=== PATIENT | female | born 1945 | race Caucasian/White ===

== ENCOUNTER 2017-12-11 10:31 | Day surgery (SDC) | payer MEDICARE, BC ==
[2017-12-03 16:01] LABS: BASOPHILS % (AUTO) 0.3 % (0-1); EOSINOPHILS # (AUTO) 0.2 X10'3 (0-0.9); EOSINOPHILS % (AUTO) 2.4 % (0-6); HEMATOCRIT 34.9 % (35.0-45.0); HEMOGLOBIN 11.6 g/dl (12.0-16.0); LYMPHOCYTES % (AUTO) 14.7 % (21-51); MEAN CORPUSCULAR HEMOGLOBIN 29.9 PG (27.0-31.0); MEAN CORPUSCULAR HGB CONC 33.4 % (33.0-36.5); MEAN CORPUSCULAR VOLUME 89.6 FL (78-98); MEAN PLATELET VOLUME 9.3 FL (7.4-10.4); MONOCYTES # (AUTO) 0.5 X10'3 (0-0.9); MONOCYTES % (AUTO) 7.4 % (2-12); NEUTROPHILS # (AUTO) 5.3 X10'3 (1.8-7.7); NEUTROPHILS % (AUTO) 75.2 % (42-75); PLATELET COUNT 237 X10'3 (140-440); RED BLOOD COUNT 3.89 X10'6 (4.20-5.60); RED CELL DISTRIBUTION WIDTH 16.9 % (11.5-14.5); WHITE BLOOD COUNT 7.1 X10'3 (4.5-11.0)
[2017-12-03 16:02] LABS: CLARITY,URINE SLIGHTLY CLOUDY (Clear); COLOR,URINE YELLOW (Yellow); GLUCOSE, URINE NEGATIVE (Neg); KETONES,URINE NEGATIVE (Neg); LEUKOCYTE ESTERASE ,URINE NEGATIVE (Neg); NITRITES, URINE NEGATIVE (Neg); OCCULT BLOOD,URINE NEGATIVE (Neg); PROTEIN,URINE 100 mg/dl (Neg); UROBILINOGEN,URINE 0.2 E.U/dL (0.2-1.0)
[2017-12-03 16:03] LABS: UA COLLECTION TYPE CLN CATCH MIDSTREAM
[2017-12-03 16:08] LABS: MUCUS STRANDS FEW /LPF (Neg); SQUAMOUS EPITHELIAL CELL,UR MANY /LPF (FEW); TRANSITIONAL EPI CELLS,URINE FEW /HPF
[2017-12-03 16:09] LABS: BACTERIA,URINE NONE SEEN /HPF (Neg); RBC,URINE 0-2 /HPF (0-2); WBC,URINE 0-4 /HPF (0-4)
[2017-12-03 16:09] LABS: ALBUMIN 3.5 G/DL (3.4-5.0); ANION GAP 6 (8-16); BLOOD UREA NITROGEN 24 MG/DL (7-18); BUN/CREATININE RATIO 22.2 (6.6-38.0); CALCIUM 9.3 MG/DL (8.5-10.1); CHLORIDE 102 MMOL/L (99-107); CREATININE 1.08 MG/DL (0.40-0.90); GLUCOSE 123 MG/DL (70-104); POTASSIUM 4.2 MMOL/L (3.5-5.1); SODIUM 139 MMOL/L (135-145); eGFR 50 ML/MIN
[2017-12-03 16:10] LABS: HEMOGLOBIN A1C 6.9 % (4.5-6.2); PARTIAL THROMBOPLASTIN TIME 27 SECONDS (22-32); PROTHROMBIN TIME 9.9 SECONDS (9.0-12.0)
[~2017-12-11] VITALS: Ht 162.6 cm; Wt 127.6 kg
[2017-12-11] VITALS (7 sets, daily range): BP systolic 121–179; BP diastolic 64–96
[~2017-12-11 10:31] MED LIST: ACET325C PO; AMIT-189 PO; CALC0.5C2 PO; CHLO25TA2 PO; FOLI-91 PO; INSU100C10 SQ; LANTUS SUBCUT; OMEP40CA37 PO; POTA10CA44 PO; SIMV20TA5 PO
[2017-12-11] MEDS ORDERED: LORazepam 0.5 MG tablet PO PRN (11:00)
[2017-12-11] MEDS ORDERED: diphenhydrAMINE 25mg capsule PO PRN (11:00)
[2017-12-11] MEDS ORDERED: normal saline 1000ml 1,000 ML IV SCH (11:00)
[2017-12-11] MEDS ORDERED: clindamycin 600mg/D5W 50ml 50 ML IV ONE ×2 (11:05→13:58)
[2017-12-11] MEDS ORDERED: CLON-529 PO (11:32)
[2017-12-11] MEDS ORDERED: CEFAZOLIN IV SCH (12:00)
[2017-12-11] MEDS ORDERED: [UNRECOGNIZED DRUG - OTHER] IV SCH (12:00)
[2017-12-11] MEDS ORDERED: midazolam 2 mg/2 ml injection ONE (13:58)
[2017-12-11] MEDS ORDERED: clindamycin phosphate 150mg/ml inj. ONE (13:58)
[2017-12-11] MEDS ORDERED: fentaNYL/PF 50MCG/1 ML 2ML syringe ONE (13:58)
[2017-12-11] MEDS ORDERED: LIDOcaine 1% 30ml vial 30 ML ONE (13:59)
== END 2017-12-11 17:00 | disposition home or self-care (01) ==
LOC: SSTAY O 10:31
PROVIDERS: ATTEND Internal Medicine Interventional Cardiology
DX: T82.120A Displacement of cardiac electrode, initial encounter (principal); Y83.8 Other surgical procedures as the cause of abnormal reaction of the patient, or of later complication, without mention of misadventure at the time of the procedure; Y92.89 Other specified places as the place of occurrence of the external cause; I10 Essential (primary) hypertension; E11.9 Type 2 diabetes mellitus without complications; I44.30 Unspecified atrioventricular block
CPT/HCPCS: 33215; 36415; 80048; 81001; 82948; 83036; 85025; 85610; 85730; 93005; A4565; J2250; J3010; J3490; J7030; Q0163; 99152; 99153; A4620

== ENCOUNTER 2018-07-23 07:50 | Outpatient (CLI) | payer MEDICARE, BC ==
[~2018-07-23 07:50] MED LIST changes: -CHLO25TA2 PO; +CLON-529 PO; -POTA10CA44 PO
[2018-07-23 08:41] LABS: BASOPHILS % (AUTO) 0.5 % (0-1); EOSINOPHILS # (AUTO) 0.3 X10'3 (0-0.9); EOSINOPHILS % (AUTO) 3.4 % (0-6); HEMATOCRIT 34.1 % (35.0-45.0); HEMOGLOBIN 11.5 g/dl (12.0-16.0); LYMPHOCYTES % (AUTO) 12.3 % (21-51); MEAN CORPUSCULAR HEMOGLOBIN 30.1 PG (27.0-31.0); MEAN CORPUSCULAR HGB CONC 33.6 % (33.0-36.5); MEAN CORPUSCULAR VOLUME 89.5 FL (78-98); MEAN PLATELET VOLUME 10.2 FL (7.4-10.4); MONOCYTES # (AUTO) 0.6 X10'3 (0-0.9); MONOCYTES % (AUTO) 7.2 % (2-12); NEUTROPHILS # (AUTO) 6.2 X10'3 (1.8-7.7); NEUTROPHILS % (AUTO) 76.6 % (42-75); PLATELET COUNT 197 X10'3 (140-440); RED BLOOD COUNT 3.82 X10'6 (4.20-5.60); RED CELL DISTRIBUTION WIDTH 18.8 % (11.5-14.5); WHITE BLOOD COUNT 8.1 X10'3 (4.5-11.0)
[2018-07-23 08:49] LABS: CLARITY,URINE Cloudy (Clear); COLOR,URINE Yellow (Yellow); GLUCOSE, URINE Negative (Neg); KETONES,URINE Negative (Neg); LEUKOCYTE ESTERASE ,URINE Large (Neg); NITRITES, URINE Negative (Neg); OCCULT BLOOD,URINE Negative (Neg); PH,URINE 6.5 (4.8-8.0); PROTEIN,URINE 100 mg/dl (Neg)
[2018-07-23 08:58] LABS: ALANINE AMINOTRANSFERASE 22 U/L (12-78); ALBUMIN 3.3 G/DL (3.4-5.0); ALBUMIN/GLOBULIN RATIO 0.9 (1.1-1.5); ALKALINE PHOSPHATASE 161 IU/L (46-116); ANION GAP 7 (8-16); ASPARTATE AMINO TRANSFERASE 22 U/L (10-37); BILIRUBIN,TOTAL 0.6 MG/DL (0.1-1.0); BLOOD UREA NITROGEN 22 MG/DL (7-18); BUN/CREATININE RATIO 24.4 (6.6-38.0); CHLORIDE 103 MMOL/L (99-107); GLUCOSE 145 MG/DL (70-104); POTASSIUM 4.2 MMOL/L (3.5-5.1); SODIUM 140 MMOL/L (135-145); TOTAL CARBON DIOXIDE 30.3 MMOL/L (24-32); TOTAL PROTEIN 6.8 G/DL (6.4-8.2); eGFR 62 ML/MIN
[2018-07-23 09:03] LABS: UA COLLECTION TYPE CLN CATCH MIDSTREAM
[2018-07-23 09:06] LABS: RBC,URINE NONE SEEN /HPF (0-2); WBC,URINE 0-4 /HPF (0-4)
[2018-07-23 09:07] LABS: AMORPHOUS URATES 1+; BACTERIA,URINE 1+ /HPF (Neg); SQUAMOUS EPITHELIAL CELL,UR MANY /LPF (FEW)
[2018-07-23 09:16] LABS: HEMOGLOBIN A1C 8.2 % (4.5-6.2)
[2018-07-23 09:18] LABS: ANISOCYTOSIS 2+; ELLIPTOCYTES 1+; PLATELET ESTIMATE NORMAL; POIKILOCYTOSIS FEW
== END 2018-07-23 23:59 | disposition home or self-care (01) ==
LOC: LAB 07:50
PROVIDERS: ATTEND Specialist
DX: Z01.818 Encounter for other preprocedural examination (principal); Z51.81 Encounter for therapeutic drug level monitoring; N39.0 Urinary tract infection, site not specified; E11.8 Type 2 diabetes mellitus with unspecified complications; I10 Essential (primary) hypertension; Z79.4 Long term (current) use of insulin; Z79.899 Other long term (current) drug therapy; Z87.891 Personal history of nicotine dependence
CPT/HCPCS: 36415; 80053; 81001; 83036; 85025; 85610; 87070

== ENCOUNTER 2018-08-05 05:32 | Inpatient (IN) | payer MEDICARE, BC ==
[2018-07-30 12:53] LABS: BASOPHILS % (AUTO) 0.3 % (0-1); EOSINOPHILS # (AUTO) 0.2 X10'3 (0-0.9); EOSINOPHILS % (AUTO) 2.4 % (0-6); HEMATOCRIT 32.9 % (35.0-45.0); HEMOGLOBIN 10.9 g/dl (12.0-16.0); LYMPHOCYTES # (AUTO) 0.9 X10'3 (1.1-4.8); LYMPHOCYTES % (AUTO) 11.6 % (21-51); MEAN CORPUSCULAR HEMOGLOBIN 29.9 PG (27.0-31.0); MEAN CORPUSCULAR HGB CONC 33.2 % (33.0-36.5); MEAN CORPUSCULAR VOLUME 90.1 FL (78-98); MONOCYTES # (AUTO) 0.5 X10'3 (0-0.9); MONOCYTES % (AUTO) 6.3 % (2-12); NEUTROPHILS # (AUTO) 5.9 X10'3 (1.8-7.7); NEUTROPHILS % (AUTO) 79.4 % (42-75); PLATELET COUNT 192 X10'3 (140-440); RED BLOOD COUNT 3.65 X10'6 (4.20-5.60); RED CELL DISTRIBUTION WIDTH 18.5 % (11.5-14.5); WHITE BLOOD COUNT 7.5 X10'3 (4.5-11.0)
[~2018-08-05] VITALS: Ht 163.8 cm; Wt 128.0 kg
[2018-08-05] VITALS (20 sets, daily range): BP systolic 117–160; BP diastolic 38–104
[~2018-08-05 05:32] MED LIST changes: +DOCU-28 PO; +FERR325T39 PO; +acetaminophen 325mg tablet PO ONE; +ceFAZolin inj. 3,000 MG in normal saline 100ml IV soln 100 ML IV ONE; +famotidine 20mg tablet PO ONE; +oxyCODONE SR 10mg (sust. release) tab PO ONE; +ringers solution, lacted 1,000 ML IV SCH; +tranexamic acid inj. 1,500 MG in normal saline 100ml IV soln 85 ML IV ONE; +vancomycin inj 1,500 MG in normal saline 300ml IV soln IV ONE
[2018-08-05] MEDS ORDERED: LIDOcaine 1% (10mg/ml) 2ml vial ONE (05:50)
[2018-08-05 06:09] LABS: BASOPHILS % (AUTO) 0.4 % (0-1); EOSINOPHILS # (AUTO) 0.2 X10'3 (0-0.9); EOSINOPHILS % (AUTO) 2.8 % (0-6); HEMATOCRIT 34.6 % (35.0-45.0); HEMOGLOBIN 11.7 g/dl (12.0-16.0); LYMPHOCYTES # (AUTO) 1.2 X10'3 (1.1-4.8); LYMPHOCYTES % (AUTO) 13.7 % (21-51); MEAN CORPUSCULAR HEMOGLOBIN 30.3 PG (27.0-31.0); MEAN CORPUSCULAR HGB CONC 33.8 % (33.0-36.5); MEAN CORPUSCULAR VOLUME 89.7 FL (78-98); MEAN PLATELET VOLUME 10.2 FL (7.4-10.4); MONOCYTES # (AUTO) 0.7 X10'3 (0-0.9); MONOCYTES % (AUTO) 7.9 % (2-12); NEUTROPHILS # (AUTO) 6.5 X10'3 (1.8-7.7); NEUTROPHILS % (AUTO) 75.2 % (42-75); PLATELET COUNT 201 X10'3 (140-440); RED BLOOD COUNT 3.86 X10'6 (4.20-5.60); RED CELL DISTRIBUTION WIDTH 18.1 % (11.5-14.5); WHITE BLOOD COUNT 8.7 X10'3 (4.5-11.0)
[2018-08-05] MEDS ORDERED: ROPIVAcaine 0.5% (5mg/ml) 30ml vial ONE ×2 (06:29→07:43)
[2018-08-05] MEDS ORDERED: INSU100C10 PO (06:43)
[2018-08-05 07:00] LABS: ANISOCYTOSIS 2+; MICROCYTOSIS 1+; PLATELET ESTIMATE NORMAL
[2018-08-05] MEDS ORDERED: bacitracin inj 150,000 UNIT in sodium chloride irrig. sol 3,000 ML IR ONE (07:00)
[2018-08-05] MEDS ORDERED: sevoflurane 250ml liquid IH ONE (07:12)
[2018-08-05] MEDS ORDERED: cloNIDine hcl/PF 100mcg/ml inj ONE (07:12)
[2018-08-05] MEDS ORDERED: fentaNYL /PF 50mcg/ml 5ml ampule ONE (07:14)
[2018-08-05] MEDS ORDERED: ceFAZolin 1000mg inj ONE (07:43)
[2018-08-05] MEDS ORDERED: LIDOcaine 2% (20mg/ml) 5ml vial ONE (07:44)
[2018-08-05] MEDS ORDERED: succinylcholine 20mg/ml inj IV ONE (07:44)
[2018-08-05] MEDS ORDERED: rocuronium 10mg/ml inj IV ONE (07:44)
[2018-08-05] MEDS ORDERED: propofol inj 20 ML IV ONE (07:44)
[2018-08-05] MEDS ORDERED: dexamethasone sod phosphate 4mg/ml inj. ONE (07:50)
[2018-08-05] MEDS ORDERED: morphine 10mg/ml inj. ONE (08:16)
[2018-08-05] MEDS ORDERED: labetalol 5mg/ml 20ml inj. IV ONE (08:26)
[2018-08-05] MEDS ORDERED: normal saline 1000ml 1,000 ML IV ONE (09:16)
[2018-08-05] MEDS ORDERED: HYDROmorphone 1 mg/ml syringe IV PRN ×3 (09:20→09:50)
[2018-08-05] MEDS ORDERED: morphine 4 MG/ML inj SYRINge IV PRN ×2 (09:20)
[2018-08-05] MEDS ORDERED: ondansetron/PF 4mg/2ml inj IV PRN ×2 (09:20→09:50)
[2018-08-05] MEDS ORDERED: furosemide 40mg/4ml inj ONE (09:43)
[2018-08-05] MEDS ORDERED: ondansetron/PF 4mg/2ml inj ONE (09:43)
[2018-08-05] MEDS ORDERED: glycopyrrolate 0.2mg/ml inj ONE (09:43)
[2018-08-05] MEDS ORDERED: neostigmine methylsulfate 1 MG/ML 10ml vial ONE (09:43)
[2018-08-05] MEDS ORDERED: glucagon, human recombinant 1mg kit SUBCUT PRN (09:50)
[2018-08-05] MEDS ORDERED: oxyCODONE/APAP 10/325mg tablet PO PRN (09:50)
[2018-08-05] MEDS ORDERED: dextrose ORAL solution 15 GM/59 ML bottle PO PRN ×2 (09:50)
[2018-08-05] MEDS ORDERED: diphenhydrAMINE 25mg capsule PO PRN ×2 (09:50)
[2018-08-05] MEDS ORDERED: magnesium hydroxide 30ml (MOM) UD suspension PO PRN (09:50)
[2018-08-05] MEDS ORDERED: acetaminophen 325mg tablet PO PRN (09:50)
[2018-08-05] MEDS ORDERED: dextrose 50%-water 50ml dispensing syringe IV PRN ×2 (09:50)
[2018-08-05] MEDS ORDERED: bisacodyl 10mg suppository rectal RC PRN (09:50)
[2018-08-05] MEDS ORDERED: MESSAGE TO PHARMACY PO ONE (09:50)
[2018-08-05] MEDS: oxyCODONE/APAP 10/325mg tablet PO PRN ×3 (11:52→19:47)
[2018-08-05] MEDS: potassium cl 20mEq in 1/2 NS 1,000 ML IV SCH ×2 (13:21→17:50)
[2018-08-05] MEDS: ceFAZolin 1GM/D5W- ADD-VANTAGE 50 ML IV SCH (16:00)
[2018-08-05] MEDS: insulin Lispro (HumaLOG) vial - multi-dose SQ SCH (19:45)
[2018-08-05] MEDS: docusate sod 100mg capsule PO SCH (19:46)
[2018-08-05] MEDS: ascorbic acid 500mg tablet PO SCH (19:46)
[2018-08-05] MEDS ORDERED: vancomycin/NS 1 GM ADD-VANTAGE 250 ML IV SCH (20:00)
[2018-08-05] MEDS ORDERED: INSULIN LISPRO 16 UNIT SQ SCH (21:00)
[2018-08-05] MEDS ORDERED: insulin glargine (Lantus) pen - multi-dose SQ SCH (21:00)
[2018-08-05] MEDS: insulin glargine (Lantus) pen - multi-dose SQ SCH (22:10)
[2018-08-05] MEDS: amitryptiline 50mg tablet PO SCH (22:11)
[2018-08-05] MEDS: atorvastatin 20mg tablet PO SCH (22:11)
[2018-08-05] MEDS: sennosides 8.6mg tablet PO SCH (22:11)
[2018-08-06] MEDS: ceFAZolin 1GM/D5W- ADD-VANTAGE 50 ML IV SCH (00:08)
[2018-08-06] MEDS: oxyCODONE/APAP 10/325mg tablet PO PRN ×5 (00:10→23:14)
[2018-08-06] MEDS: potassium cl 20mEq in 1/2 NS 1,000 ML IV SCH ×3 (02:12→16:08)
[2018-08-06 05:34] LABS: BASOPHILS % (AUTO) 0 % (0-1); EOSINOPHILS # (AUTO) 0.2 X10'3 (0-0.9); HEMATOCRIT 27.3 % (35.0-45.0); HEMOGLOBIN 9.2 g/dl (12.0-16.0); LYMPHOCYTES % (AUTO) 10.1 % (21-51); MEAN CORPUSCULAR HEMOGLOBIN 30.1 PG (27.0-31.0); MEAN CORPUSCULAR HGB CONC 33.7 % (33.0-36.5); MEAN CORPUSCULAR VOLUME 89.1 FL (78-98); MEAN PLATELET VOLUME 11.1 FL (7.4-10.4); MONOCYTES # (AUTO) 0.7 X10'3 (0-0.9); MONOCYTES % (AUTO) 7.2 % (2-12); NEUTROPHILS # (AUTO) 7.7 X10'3 (1.8-7.7); NEUTROPHILS % (AUTO) 80.7 % (42-75); PLATELET COUNT 168 X10'3 (140-440); RED BLOOD COUNT 3.07 X10'6 (4.20-5.60); RED CELL DISTRIBUTION WIDTH 18.3 % (11.5-14.5); WHITE BLOOD COUNT 9.5 X10'3 (4.5-11.0)
[2018-08-06 05:49] LABS: INR 1.3 INR; PROTHROMBIN TIME 13.6 SECONDS (9.0-12.0)
[2018-08-06 06:00] VITALS: BP 126/46
[2018-08-06 06:17] LABS: ALANINE AMINOTRANSFERASE 24 U/L (12-78); ALBUMIN 2.8 G/DL (3.4-5.0); ALBUMIN/GLOBULIN RATIO 0.9 (1.1-1.5); ALKALINE PHOSPHATASE 120 IU/L (46-116); ANION GAP 8 (8-16); ASPARTATE AMINO TRANSFERASE 22 U/L (10-37); BILIRUBIN,TOTAL 0.5 MG/DL (0.1-1.0); BLOOD UREA NITROGEN 20 MG/DL (7-18); BUN/CREATININE RATIO 17.9 (6.6-38.0); CALCIUM 8.1 MG/DL (8.5-10.1); CHLORIDE 102 MMOL/L (99-107); CREATININE 1.12 MG/DL (0.40-0.90); GLUCOSE 173 MG/DL (70-104); POTASSIUM 4.2 MMOL/L (3.5-5.1); SODIUM 137 MMOL/L (135-145); TOTAL CARBON DIOXIDE 26.6 MMOL/L (24-32); TOTAL PROTEIN 5.8 G/DL (6.4-8.2); eGFR 48 ML/MIN
[2018-08-06 06:29] LABS: PLATELET ESTIMATE NORMAL
[2018-08-06 06:30] LABS: ANISOCYTOSIS 2+; ELLIPTOCYTES 1+
[2018-08-06] MEDS: cloNIDine 0.1 mg tablet PO SCH (07:09)
[2018-08-06] MEDS: pantoprazole 40mg Tablet.DR PO SCH (07:09)
[2018-08-06] MEDS: ascorbic acid 500mg tablet PO SCH ×2 (07:10→20:52)
[2018-08-06] MEDS: multivitamins, therapeutics tablet PO SCH (07:10)
[2018-08-06] MEDS: docusate sod 100mg capsule PO SCH ×2 (08:00→20:52)
[2018-08-06] MEDS: insulin Lispro (HumaLOG) vial - multi-dose SQ SCH ×3 (08:17→18:43)
[2018-08-06 10:00] VITALS: BP 107/65
[2018-08-06] MEDS ORDERED: warfarin 5mg tablet PO ONE (10:00)
[2018-08-06 14:00] VITALS: BP 160/50
[2018-08-06 19:39] VITALS: BP 131/51
[2018-08-06] MEDS: amitryptiline 50mg tablet PO SCH (20:52)
[2018-08-06] MEDS: atorvastatin 20mg tablet PO SCH (20:52)
[2018-08-06] MEDS: sennosides 8.6mg tablet PO SCH (20:52)
[2018-08-06] MEDS: insulin glargine (Lantus) pen - multi-dose SQ SCH (20:54)
[2018-08-06 22:00] VITALS: BP 138/66
[2018-08-07] MEDS: potassium cl 20mEq in 1/2 NS 1,000 ML IV SCH (04:28)
[2018-08-07] MEDS: oxyCODONE/APAP 10/325mg tablet PO PRN ×4 (05:02→22:12)
[2018-08-07 06:00] LABS: BASOPHILS % (AUTO) 0.1 % (0-1); EOSINOPHILS # (AUTO) 0.3 X10'3 (0-0.9); EOSINOPHILS % (AUTO) 3.1 % (0-6); HEMATOCRIT 26.8 % (35.0-45.0); HEMOGLOBIN 8.9 g/dl (12.0-16.0); LYMPHOCYTES # (AUTO) 0.8 X10'3 (1.1-4.8); LYMPHOCYTES % (AUTO) 9.3 % (21-51); MEAN CORPUSCULAR HEMOGLOBIN 29.8 PG (27.0-31.0); MEAN CORPUSCULAR HGB CONC 33.4 % (33.0-36.5); MEAN CORPUSCULAR VOLUME 89.1 FL (78-98); MONOCYTES # (AUTO) 0.7 X10'3 (0-0.9); MONOCYTES % (AUTO) 8.5 % (2-12); NEUTROPHILS # (AUTO) 6.5 X10'3 (1.8-7.7); PLATELET COUNT 160 X10'3 (140-440); RED CELL DISTRIBUTION WIDTH 17.9 % (11.5-14.5); WHITE BLOOD COUNT 8.2 X10'3 (4.5-11.0)
[2018-08-07 06:05] LABS: INR 1.6 INR; PROTHROMBIN TIME 16.7 SECONDS (9.0-12.0)
[2018-08-07 06:29] LABS: ALANINE AMINOTRANSFERASE 23 U/L (12-78); ALBUMIN 2.6 G/DL (3.4-5.0); ALBUMIN/GLOBULIN RATIO 0.8 (1.1-1.5); ALKALINE PHOSPHATASE 110 IU/L (46-116); ANION GAP 7 (8-16); ASPARTATE AMINO TRANSFERASE 25 U/L (10-37); BILIRUBIN,TOTAL 0.6 MG/DL (0.1-1.0); BLOOD UREA NITROGEN 20 MG/DL (7-18); BUN/CREATININE RATIO 18.3 (6.6-38.0); CALCIUM 8.1 MG/DL (8.5-10.1); CHLORIDE 101 MMOL/L (99-107); CREATININE 1.09 MG/DL (0.40-0.90); GLUCOSE 157 MG/DL (70-104); POTASSIUM 4.1 MMOL/L (3.5-5.1); SODIUM 134 MMOL/L (135-145); TOTAL CARBON DIOXIDE 26.5 MMOL/L (24-32); TOTAL PROTEIN 5.9 G/DL (6.4-8.2); eGFR 49 ML/MIN
[2018-08-07 08:34] VITALS: BP 158/47
[2018-08-07] MEDS: pantoprazole 40mg Tablet.DR PO SCH (08:35)
[2018-08-07] MEDS: cloNIDine 0.1 mg tablet PO SCH (08:35)
[2018-08-07] MEDS: ascorbic acid 500mg tablet PO SCH ×2 (08:36→22:12)
[2018-08-07] MEDS: docusate sod 100mg capsule PO SCH ×2 (08:36→22:12)
[2018-08-07] MEDS: multivitamins, therapeutics tablet PO SCH (08:36)
[2018-08-07] MEDS: insulin Lispro (HumaLOG) vial - multi-dose SQ SCH ×3 (08:48→18:25)
[2018-08-07] MEDS ORDERED: acetaminophen 325mg tablet PO PRN (09:50)
[2018-08-07 10:00] VITALS: BP 145/43
[2018-08-07] MEDS ORDERED: scopolamine 1.5mg patch.TD72 TD ONE (10:55)
[2018-08-07 18:00] VITALS: BP 140/37
[2018-08-07] MEDS: insulin glargine (Lantus) pen - multi-dose SQ SCH (20:45)
[2018-08-07 22:00] VITALS: BP 139/50
[2018-08-07] MEDS: sennosides 8.6mg tablet PO SCH (22:12)
[2018-08-07] MEDS: atorvastatin 20mg tablet PO SCH (22:12)
[2018-08-07] MEDS: amitryptiline 50mg tablet PO SCH (22:12)
[2018-08-08] MEDS: oxyCODONE/APAP 10/325mg tablet PO PRN ×2 (05:31→10:09)
[2018-08-08 06:00] VITALS: BP 162/54
[2018-08-08 06:07] LABS: BASOPHILS % (AUTO) 0.1 % (0-1); EOSINOPHILS # (AUTO) 0.2 X10'3 (0-0.9); HEMATOCRIT 26.1 % (35.0-45.0); HEMOGLOBIN 8.9 g/dl (12.0-16.0); LYMPHOCYTES % (AUTO) 12.6 % (21-51); MEAN CORPUSCULAR HEMOGLOBIN 30.5 PG (27.0-31.0); MEAN CORPUSCULAR HGB CONC 34.1 % (33.0-36.5); MEAN CORPUSCULAR VOLUME 89.5 FL (78-98); MEAN PLATELET VOLUME 10.4 FL (7.4-10.4); MONOCYTES # (AUTO) 0.7 X10'3 (0-0.9); MONOCYTES % (AUTO) 8.5 % (2-12); NEUTROPHILS # (AUTO) 6.1 X10'3 (1.8-7.7); NEUTROPHILS % (AUTO) 75.8 % (42-75); PLATELET COUNT 167 X10'3 (140-440); RED BLOOD COUNT 2.92 X10'6 (4.20-5.60); RED CELL DISTRIBUTION WIDTH 18.5 % (11.5-14.5)
[2018-08-08 06:11] LABS: INR 1.3 INR; PROTHROMBIN TIME 13.8 SECONDS (9.0-12.0)
[2018-08-08 06:59] LABS: ALANINE AMINOTRANSFERASE 22 U/L (12-78); ALBUMIN 2.5 G/DL (3.4-5.0); ALBUMIN/GLOBULIN RATIO 0.7 (1.1-1.5); ALKALINE PHOSPHATASE 111 IU/L (46-116); ANION GAP 8 (8-16); ASPARTATE AMINO TRANSFERASE 22 U/L (10-37); BILIRUBIN,TOTAL 0.6 MG/DL (0.1-1.0); BLOOD UREA NITROGEN 23 MG/DL (7-18); BUN/CREATININE RATIO 19.8 (6.6-38.0); CALCIUM 8.5 MG/DL (8.5-10.1); CHLORIDE 101 MMOL/L (99-107); CREATININE 1.16 MG/DL (0.40-0.90); GLUCOSE 118 MG/DL (70-104); POTASSIUM 4.1 MMOL/L (3.5-5.1); SODIUM 136 MMOL/L (135-145); TOTAL PROTEIN 6.1 G/DL (6.4-8.2); eGFR 46 ML/MIN
[2018-08-08] MEDS: insulin Lispro (HumaLOG) vial - multi-dose SQ SCH (08:51)
[2018-08-08] MEDS: pantoprazole 40mg Tablet.DR PO SCH (08:53)
[2018-08-08] MEDS: cloNIDine 0.1 mg tablet PO SCH (08:53)
[2018-08-08] MEDS: docusate sod 100mg capsule PO SCH (08:53)
[2018-08-08] MEDS: ascorbic acid 500mg tablet PO SCH (08:53)
[2018-08-08] MEDS: multivitamins, therapeutics tablet PO SCH (08:53)
[2018-08-08 10:00] VITALS: BP 132/48
[2018-08-08] MEDS ORDERED: warfarin 7.5mg tablet PO ONE (10:00)
== END 2018-08-08 12:30 | DRG 470 ==
LOC: PAS IN 05:32 → EDSTATUS 07:30 → ORTHO 4S 11:10
PROVIDERS: ADMIT Specialist; ATTEND Specialist
PROC: 3E0T3BZ Introduction of Anesthetic Agent into Peripheral Nerves and Plexi, Percutaneous Approach (ICD-10-PCS; 2018-08-05)
PROC: 0SRC0J9 Replacement of Right Knee Joint with Synthetic Substitute, Cemented, Open Approach (ICD-10-PCS; principal; 2018-08-05 07:12)
DX: M17.11 Unilateral primary osteoarthritis, right knee (principal); Z68.42 Body mass index [BMI] 45.0-49.9, adult; D62 Acute posthemorrhagic anemia; E66.01 Morbid (severe) obesity due to excess calories; E11.9 Type 2 diabetes mellitus without complications; M21.161 Varus deformity, not elsewhere classified, right knee; E78.5 Hyperlipidemia, unspecified; M10.9 Gout, unspecified; I10 Essential (primary) hypertension; I25.10 Atherosclerotic heart disease of native coronary artery without angina pectoris; Z87.891 Personal history of nicotine dependence; Z79.4 Long term (current) use of insulin; Z95.0 Presence of cardiac pacemaker; Z88.0 Allergy status to penicillin; Z88.2 Allergy status to sulfonamides; Z88.6 Allergy status to analgesic agent; Z88.8 Allergy status to other drugs, medicaments and biological substances; Z79.899 Other long term (current) drug therapy; Z79.01 Long term (current) use of anticoagulants; Z90.710 Acquired absence of both cervix and uterus
CPT/HCPCS: 36415; 73560; 80053; 82948; 83036; 85025; 85610; 97110; 97116; 97162; 97530; 97535; A6449; A6455; A7000; C1713; C1758; C1776; J0330; J0690; J0735; J1100; J1170; J1815; J1940; J2001; J2270; J2405; J2704; J2710; J2795; J3010; J3370; J3490; J7030; J7120

== ENCOUNTER 2021-03-25 03:20 | Emergency (ER) | payer MEDICARE, BC, MEDICAID ==
[~2021-03-25] VITALS: Ht 162.6 cm; Wt 130.0 kg
[~2021-03-25 03:20] MED LIST changes: -ACET325C PO; +ACET325C3 PO; -CALC0.5C2 PO; +INSU100C10 PO; +OMEP40CA13 PO; -OMEP40CA37 PO; +SIMV-42 PO; -SIMV20TA5 PO; -acetaminophen 325mg tablet PO ONE; -ceFAZolin inj. 3,000 MG in normal saline 100ml IV soln 100 ML IV ONE; -famotidine 20mg tablet PO ONE; -oxyCODONE SR 10mg (sust. release) tab PO ONE; -ringers solution, lacted 1,000 ML IV SCH; -tranexamic acid inj. 1,500 MG in normal saline 100ml IV soln 85 ML IV ONE; -vancomycin inj 1,500 MG in normal saline 300ml IV soln IV ONE
[2021-03-25 03:43] LABS: BASOPHILS % (AUTO) 0.4 % (0-1); EOSINOPHILS # (AUTO) 0.2 X10'3 (0-0.9); EOSINOPHILS % (AUTO) 1.4 % (0-6); HEMOGLOBIN 7.5 g/dl (12.0-16.0); LYMPHOCYTES # (AUTO) 1.2 X10'3 (1.1-4.8); LYMPHOCYTES % (AUTO) 10.4 % (21-51); MEAN CORPUSCULAR HEMOGLOBIN 27.9 PG (27.0-31.0); MEAN CORPUSCULAR HGB CONC 31.4 g/dL (33.0-36.5); MEAN PLATELET VOLUME 9.7 FL (7.4-10.4); MONOCYTES # (AUTO) 0.7 X10'3 (0-0.9); MONOCYTES % (AUTO) 6.3 % (2-12); NEUTROPHILS # (AUTO) 9.2 X10'3 (1.8-7.7); NEUTROPHILS % (AUTO) 81.5 % (42-75); PLATELET COUNT 226 X10'3 (140-440); RED CELL DISTRIBUTION WIDTH 19.1 % (11.5-14.5); WHITE BLOOD COUNT 11.3 X10'3 (4.5-11.0)
[2021-03-25 03:56] LABS: ALANINE AMINOTRANSFERASE 26 U/L (12-78); ALBUMIN 3.4 G/DL (3.4-5.0); ALKALINE PHOSPHATASE 153 IU/L (46-116); ANION GAP 12 (8-16); ASPARTATE AMINO TRANSFERASE 32 U/L (10-37); BILIRUBIN,TOTAL 0.6 MG/DL (0.1-1.0); BLOOD UREA NITROGEN 41 MG/DL (7-18); BUN/CREATININE RATIO 38.7 (6.6-38.0); CALCIUM 8.9 MG/DL (8.5-10.1); CHLORIDE 105 MMOL/L (99-107); CREATININE 1.06 MG/DL (0.40-0.90); GLUCOSE 237 MG/DL (70-104); POTASSIUM 4.4 MMOL/L (3.5-5.1); SODIUM 142 MMOL/L (135-145); TOTAL CARBON DIOXIDE 25.1 MMOL/L (24-32); TOTAL PROTEIN 6.7 G/DL (6.4-8.2); eGFR 51 ML/MIN
[2021-03-25] MEDS ORDERED: ALBU8HFA PO (04:10)
[2021-03-25 04:41] VITALS: BP 164/64
[2021-03-25 05:11] LABS: ANISOCYTOSIS 2+; PLATELET ESTIMATE NORMAL; TOTAL CELLS COUNTED 100
[2021-03-25 05:12] LABS: ACANTHOCYTES 1+; HYPOCHROMASIA 1+; POLYCHROMASIA 1+; SCHISTOCYTES FEW; TEAR DROP CELLS FEW
[2021-03-29] MEDS ORDERED: PANT-47 PO (10:55)
== END 2021-03-25 05:10 | disposition home or self-care (01) ==
LOC: ER 03:20
DX: J44.9 Chronic obstructive pulmonary disease, unspecified (principal); R06.02 Shortness of breath; Z76.0 Encounter for issue of repeat prescription; Z88.0 Allergy status to penicillin; Z88.2 Allergy status to sulfonamides; Z88.8 Allergy status to other drugs, medicaments and biological substances; Z88.5 Allergy status to narcotic agent; Z79.4 Long term (current) use of insulin; Z79.899 Other long term (current) drug therapy
CPT/HCPCS: 36415; 71045; 80053; 85007; 85025; 93005; 99285

== ENCOUNTER 2021-03-26 23:22 | Inpatient (IN) | payer MEDICARE, BC, MEDICAID ==
[~2021-03-26] VITALS: Ht 162.6 cm; Wt 129.1 kg
[~2021-03-26 23:22] MED LIST changes: +ALBU8HFA PO
[2021-03-27] VITALS (18 sets, daily range): BP systolic 145–217; BP diastolic 44–108
[2021-03-27] MEDS ORDERED: iohexol 300mg/ml 100ml inj. ONE (00:29)
[2021-03-27 01:16] LABS: ALANINE AMINOTRANSFERASE 34 U/L (12-78); ALBUMIN 3.4 G/DL (3.4-5.0); ALBUMIN/GLOBULIN RATIO 1.1 (1.1-1.5); ALKALINE PHOSPHATASE 133 IU/L (46-116); ANION GAP 9 (8-16); ASPARTATE AMINO TRANSFERASE 28 U/L (10-37); BASOPHILS # (AUTO) 0.1 X10'3 (0-0.2); BASOPHILS % (AUTO) 0.5 % (0-1); BILIRUBIN,TOTAL 0.8 MG/DL (0.1-1.0); BLOOD UREA NITROGEN 43 MG/DL (7-18); BUN/CREATININE RATIO 42.6 (6.6-38.0); CHLORIDE 105 MMOL/L (99-107); CREATININE 1.01 MG/DL (0.40-0.90); EOSINOPHILS # (AUTO) 0.1 X10'3 (0-0.9); EOSINOPHILS % (AUTO) 0.8 % (0-6); GLUCOSE 196 MG/DL (70-104); LYMPHOCYTES # (AUTO) 0.5 X10'3 (1.1-4.8); LYMPHOCYTES % (AUTO) 4.5 % (21-51); MEAN CORPUSCULAR HEMOGLOBIN 28.5 PG (27.0-31.0); MEAN CORPUSCULAR HGB CONC 32.4 g/dL (33.0-36.5); MEAN CORPUSCULAR VOLUME 87.9 FL (78-98); MEAN PLATELET VOLUME 9.6 FL (7.4-10.4); MONOCYTES # (AUTO) 0.6 X10'3 (0-0.9); MONOCYTES % (AUTO) 5.7 % (2-12); NEUTROPHILS # (AUTO) 9.4 X10'3 (1.8-7.7); NEUTROPHILS % (AUTO) 88.5 % (42-75); PLATELET COUNT 211 X10'3 (140-440); POTASSIUM 4.5 MMOL/L (3.5-5.1); RED CELL DISTRIBUTION WIDTH 19.7 % (11.5-14.5); SODIUM 143 MMOL/L (135-145); TOTAL CARBON DIOXIDE 28.8 MMOL/L (24-32); TOTAL PROTEIN 6.5 G/DL (6.4-8.2); WHITE BLOOD COUNT 10.7 X10'3 (4.5-11.0); eGFR 54 ML/MIN
[2021-03-27 01:24] LABS: HEMATOCRIT 21.1 % (35.0-45.0); HEMOGLOBIN 6.8 g/dl (12.0-16.0)
--- NOTE | 2021-03-27 01:49 | NUR ---
ATTEMPTED TO GET URINE SAMPLE VIA STRAIGHT CATH; UNABLE TO OBTAIN. AWARE
[2021-03-27] MEDS ORDERED: dextrose 50%-water 50ml dispensing syringe IV PRN ×2 (02:00)
[2021-03-27] MEDS ORDERED: acetaminophen 325mg tablet PO PRN (02:00)
[2021-03-27] MEDS ORDERED: glucagon, human recombinant 1mg kit SUBCUT PRN (02:00)
[2021-03-27] MEDS ORDERED: magnesium 2GM in 50ml NS 50 ML IV PRN (02:00)
[2021-03-27] MEDS ORDERED: dextrose ORAL solution 15 GM/59 ML bottle PO PRN ×2 (02:00)
[2021-03-27] MEDS ORDERED: magnesium 4gm in 100ml NS 100 ML IV PRN (02:00)
[2021-03-27] MEDS ORDERED: ondansetron/PF 4mg/2ml inj IV PRN (02:00)
[2021-03-27] MEDS ORDERED: MESSAGE TO PHARMACY PO ONE (02:00)
--- NOTE | 2021-03-27 02:01 | NUR ---
CALL FROM JORGE SANTIAGO OF PATIENT. CALLING FOR UPDATE.
[2021-03-27] MEDS ORDERED: FERR325T28 PO (02:18)
[2021-03-27] MEDS ORDERED: AMIT-189 PO (02:18)
[2021-03-27] MEDS ORDERED: BUDE10.2 INH (02:19)
[2021-03-27 02:43] LABS: CLARITY,URINE CLEAR (Clear); COLOR,URINE YELLOW (Yellow); GLUCOSE, URINE NEGATIVE (Neg); KETONES,URINE NEGATIVE (Neg); LEUKOCYTE ESTERASE ,URINE NEGATIVE (Neg); NITRITES, URINE NEGATIVE (Neg); OCCULT BLOOD,URINE SMALL (Neg); PROTEIN,URINE 100 mg/dl (Neg); UROBILINOGEN,URINE 0.2 E.U/dL (0.2-1.0)
[2021-03-27 02:51] LABS: UA COLLECTION TYPE STRAIGHT CATH
[2021-03-27 02:52] LABS: BACTERIA,URINE FEW /HPF (Neg); RBC,URINE 0-2 /HPF (0-2); SQUAMOUS EPITHELIAL CELL,UR FEW /LPF (FEW); WBC,URINE NONE SEEN /HPF (0-4)
--- NOTE | 2021-03-27 03:22 | NUR ---
Patient in room ED 13. I have received report from Justice Kat Rn and had the opportunity to ask questions and assume patient care. Addendum: 03/27/21 at 0322 by Anu Nance RN Amended: Links added.
[2021-03-27 04:02] LABS: ACANTHOCYTES FEW; ANISOCYTOSIS 2+; ELLIPTOCYTES FEW; HYPOCHROMASIA 1+; PLATELET ESTIMATE NORMAL; POLYCHROMASIA FEW; SCHISTOCYTES FEW; TEAR DROP CELLS FEW
--- NOTE | 2021-03-27 04:27 | NUR ---
RECEIVED PT WITH BLOOD TRANSFUSION CONSENT SIGNED FROM ER EVERYTHING SET UP AND NOW BLOOD INFUSING.
--- NOTE | 2021-03-27 04:45 | NUR ---
dry flow under her and pure wick per pt request states she has stress incontinence issues.
--- NOTE | 2021-03-27 05:15 | NUR ---
blood infusing no s&s of distress at this time.
--- NOTE | 2021-03-27 06:11 | NUR ---
Problems reprioritized. Patient report given, questions answered & plan of care reviewed with Molly Philippe. Addendum: 03/27/21 at 0612 by Anu Nance RN Amended: Links added.
--- NOTE | 2021-03-27 06:59 | NUR ---
Patient in room HEIDI 355B. I have received report from TEGAN VOSS and had the opportunity to ask questions and assume patient care.
[2021-03-27 07:24] LABS: HEMOGLOBIN A1C 7.7 % (4.5-6.2)
[2021-03-27] MEDS: pantoprazole 40MG/NS 100ML BAG 100 ML IV SCH ×4 (07:41→20:23)
[2021-03-27] MEDS: docusate sod 100mg capsule PO SCH ×2 (07:47→20:22)
[2021-03-27] MEDS ORDERED: cloNIDine 0.1 mg tablet PO SCH (08:00)
[2021-03-27] MEDS: K and/or MAG REPLACEMENT MC SCH ×2 (08:00→20:00)
[2021-03-27 09:33] LABS: HEMATOCRIT 23.1 % (35.0-45.0); HEMOGLOBIN 7.6 g/dl (12.0-16.0); MEAN CORPUSCULAR HEMOGLOBIN 28.5 PG (27.0-31.0); MEAN CORPUSCULAR HGB CONC 32.9 g/dL (33.0-36.5); MEAN CORPUSCULAR VOLUME 86.7 FL (78-98); MEAN PLATELET VOLUME 9.8 FL (7.4-10.4); PLATELET COUNT 192 X10'3 (140-440); RED BLOOD COUNT 2.66 X10'6 (4.20-5.60); RED CELL DISTRIBUTION WIDTH 18.7 % (11.5-14.5); WHITE BLOOD COUNT 9.2 X10'3 (4.5-11.0)
[2021-03-27] MEDS ORDERED: CALC0.5C2 PO (10:03)
[2021-03-27] MEDS ORDERED: DOXA2TAB46 PO (10:03)
[2021-03-27] MEDS ORDERED: MULT-1133 PO (10:03)
[2021-03-27] MEDS ORDERED: ATOR80TA PO (10:03)
[2021-03-27] MEDS ORDERED: METO50TA16 PO (10:03)
[2021-03-27] MEDS ORDERED: OMEP-50 PO (10:03)
[2021-03-27] MEDS ORDERED: ALBU8.5H8 IH (10:03)
[2021-03-27] MEDS ORDERED: MAGN400T29 PO (10:03)
[2021-03-27] MEDS ORDERED: RIVA20TA PO (10:03)
[2021-03-27] MEDS ORDERED: HYDROcodone/acetaminophen 5mg/325mg tablet PO PRN (12:45)
[2021-03-27] MEDS ORDERED: fentaNYL/PF 50MCG/1 ML 2ML syringe ONE (12:51)
[2021-03-27] MEDS ORDERED: MIDAZolam 1 MG/ML 5ML VIAL ONE (12:52)
[2021-03-27] MEDS ORDERED: LIDOcaine Viscous 15ml cup ONE (12:52)
--- NOTE | 2021-03-27 14:24 | NUR ---
DM Consult: Pt A1C 7.7 w/ hx T2DM per EMR; decent given age. Pt not present during RD visit; written DM ed w/ RD contact information left at bedside. Addendum: 03/27/21 at [address] Amended: Links added.
[2021-03-27 15:55] LABS: HEMOGLOBIN 7.8 g/dl (12.0-16.0); MEAN CORPUSCULAR HEMOGLOBIN 28.5 PG (27.0-31.0); MEAN CORPUSCULAR HGB CONC 32.4 g/dL (33.0-36.5); MEAN CORPUSCULAR VOLUME 88.2 FL (78-98); MEAN PLATELET VOLUME 9.6 FL (7.4-10.4); PLATELET COUNT 195 X10'3 (140-440); RED BLOOD COUNT 2.72 X10'6 (4.20-5.60); RED CELL DISTRIBUTION WIDTH 18.2 % (11.5-14.5); WHITE BLOOD COUNT 10.9 X10'3 (4.5-11.0)
--- NOTE | 2021-03-27 18:45 | NUR ---
Problems reprioritized. Patient report given, questions answered & plan of care reviewed with TEGAN HARTLEY.
[2021-03-27] MEDS: insulin Lispro (HumaLOG) vial - multi-dose SQ SCH (18:55)
[2021-03-27] MEDS: amitriptyline 50mg tablet PO SCH (20:22)
[2021-03-27] MEDS ORDERED: non-formulary drug (Simvastatin* (Zocor*) 2 TAB) PO SCH (21:00)
[2021-03-27] MEDS: insulin glargine (Lantus) pen - multi-dose SQ SCH (21:11)
[2021-03-27 23:17] LABS: HEMOGLOBIN 7.2 g/dl (12.0-16.0); MEAN CORPUSCULAR HEMOGLOBIN 28.7 PG (27.0-31.0); MEAN CORPUSCULAR HGB CONC 33.4 g/dL (33.0-36.5); MEAN PLATELET VOLUME 9.5 FL (7.4-10.4); PLATELET COUNT 187 X10'3 (140-440); RED BLOOD COUNT 2.51 X10'6 (4.20-5.60); RED CELL DISTRIBUTION WIDTH 18.7 % (11.5-14.5); WHITE BLOOD COUNT 8.2 X10'3 (4.5-11.0)
[2021-03-27 23:22] LABS: HEMATOCRIT 21.6 % (35.0-45.0)
[2021-03-28] VITALS: BP 142/54
[2021-03-28] MEDS: pantoprazole 40MG/NS 100ML BAG 100 ML IV SCH ×6 (01:17→23:04)
--- NOTE | 2021-03-28 06:30 | NUR ---
Problems reprioritized. Patient report given, questions answered & plan of care reviewed with YUMIKO. Addendum: 03/28/21 at 0631 by Jose Luis Perez RN Amended: Links added.
[2021-03-28 07:00] VITALS: BP 157/43
[2021-03-28 07:26] LABS: HEMOGLOBIN 7.6 g/dl (12.0-16.0); MEAN CORPUSCULAR HEMOGLOBIN 28.7 PG (27.0-31.0); MEAN CORPUSCULAR HGB CONC 33.1 g/dL (33.0-36.5); MEAN CORPUSCULAR VOLUME 86.8 FL (78-98); MEAN PLATELET VOLUME 9.3 FL (7.4-10.4); PLATELET COUNT 187 X10'3 (140-440); RED BLOOD COUNT 2.65 X10'6 (4.20-5.60); RED CELL DISTRIBUTION WIDTH 18.5 % (11.5-14.5); WHITE BLOOD COUNT 8.4 X10'3 (4.5-11.0)
[2021-03-28] MEDS: docusate sod 100mg capsule PO SCH ×2 (07:26→19:40)
[2021-03-28] MEDS: nystatin 15 GM powder TP SCH ×3 (07:30→21:00)
[2021-03-28 07:40] LABS: ALANINE AMINOTRANSFERASE 24 U/L (12-78); ALKALINE PHOSPHATASE 109 IU/L (46-116); ANION GAP 8 (8-16); ASPARTATE AMINO TRANSFERASE 28 U/L (10-37); BILIRUBIN,TOTAL 1.5 MG/DL (0.1-1.0); BLOOD UREA NITROGEN 27 MG/DL (7-18); BUN/CREATININE RATIO 34.6 (6.6-38.0); CALCIUM 8.5 MG/DL (8.5-10.1); CHLORIDE 105 MMOL/L (99-107); CREATININE 0.78 MG/DL (0.40-0.90); GLUCOSE 181 MG/DL (70-104); MAGNESIUM 1.9 MG/DL (1.5-2.4); POTASSIUM 3.8 MMOL/L (3.5-5.1); SODIUM 141 MMOL/L (135-145); TOTAL CARBON DIOXIDE 27.8 MMOL/L (24-32); TOTAL PROTEIN 6.1 G/DL (6.4-8.2); eGFR 72 ML/MIN
--- NOTE | 2021-03-28 07:41 | NUR ---
PAGER ID: [phone] MESSAGE: Elizabeth Bianchi [phone]- RE: Anurag 355A- H/H- .05/11 Yesterday- 7.01/09.6
--- NOTE | 2021-03-28 07:45 | NUR ---
Patient in room HEIDI 355. I have received report from Payam JAVED and had the opportunity to ask questions and assume patient care.
[2021-03-28] MEDS: K and/or MAG REPLACEMENT MC SCH ×2 (08:00→19:39)
[2021-03-28] MEDS: insulin Lispro (HumaLOG) vial - multi-dose SQ SCH ×3 (09:59→19:37)
[2021-03-28 12:00] VITALS: BP 168/57
[2021-03-28 15:24] LABS: HEMATOCRIT 23.6 % (35.0-45.0); HEMOGLOBIN 7.8 g/dl (12.0-16.0); MEAN CORPUSCULAR HEMOGLOBIN 28.3 PG (27.0-31.0); MEAN CORPUSCULAR HGB CONC 32.9 g/dL (33.0-36.5); MEAN CORPUSCULAR VOLUME 85.9 FL (78-98); MEAN PLATELET VOLUME 9.1 FL (7.4-10.4); PLATELET COUNT 193 X10'3 (140-440); RED BLOOD COUNT 2.75 X10'6 (4.20-5.60); RED CELL DISTRIBUTION WIDTH 18.5 % (11.5-14.5); WHITE BLOOD COUNT 6.5 X10'3 (4.5-11.0)
--- NOTE | 2021-03-28 18:22 | NUR ---
Problems reprioritized. Patient report given, questions answered & plan of care reviewed with Kalnai JAVED.
--- NOTE | 2021-03-28 19:00 | NUR ---
Patient in room HEIDI 355. I have received report from Elizabeth JAVED and had the opportunity to ask questions and assume patient care.
[2021-03-28 20:00] VITALS: BP 159/38
[2021-03-28] MEDS: amitriptyline 50mg tablet PO SCH (21:12)
[2021-03-28] MEDS: insulin glargine (Lantus) pen - multi-dose SQ SCH (21:18)
[2021-03-28 23:22] LABS: HEMATOCRIT 23.1 % (35.0-45.0); HEMOGLOBIN 7.6 g/dl (12.0-16.0); MEAN CORPUSCULAR HEMOGLOBIN 28.6 PG (27.0-31.0); MEAN CORPUSCULAR HGB CONC 32.8 g/dL (33.0-36.5); MEAN CORPUSCULAR VOLUME 87.2 FL (78-98); MEAN PLATELET VOLUME 9.2 FL (7.4-10.4); PLATELET COUNT 188 X10'3 (140-440); RED BLOOD COUNT 2.65 X10'6 (4.20-5.60); RED CELL DISTRIBUTION WIDTH 18.1 % (11.5-14.5)
[2021-03-28 23:33] VITALS: BP 148/52
[2021-03-29] MEDS: pantoprazole 40MG/NS 100ML BAG 100 ML IV SCH ×2 (03:59→09:57)
[2021-03-29 06:19] LABS: HEMATOCRIT 23.5 % (35.0-45.0); HEMOGLOBIN 7.8 g/dl (12.0-16.0); MEAN CORPUSCULAR HEMOGLOBIN 28.8 PG (27.0-31.0); MEAN CORPUSCULAR VOLUME 87.2 FL (78-98); MEAN PLATELET VOLUME 9.2 FL (7.4-10.4); PLATELET COUNT 185 X10'3 (140-440); RED BLOOD COUNT 2.69 X10'6 (4.20-5.60); WHITE BLOOD COUNT 6.3 X10'3 (4.5-11.0)
--- NOTE | 2021-03-29 06:19 | NUR ---
Problems reprioritized. Patient report given, questions answered & plan of care reviewed with Elizabeth JAVED.
--- NOTE | 2021-03-29 06:20 | NUR ---
Patient in room HEIDI 355. I have received report from Kalani JAVED and had the opportunity to ask questions and assume patient care.
[2021-03-29 06:34] LABS: ALANINE AMINOTRANSFERASE 25 U/L (12-78); ALBUMIN 2.8 G/DL (3.4-5.0); ALBUMIN/GLOBULIN RATIO 0.9 (1.1-1.5); ALKALINE PHOSPHATASE 103 IU/L (46-116); ANION GAP 5 (8-16); ASPARTATE AMINO TRANSFERASE 25 U/L (10-37); BILIRUBIN,TOTAL 1.5 MG/DL (0.1-1.0); BLOOD UREA NITROGEN 17 MG/DL (7-18); BUN/CREATININE RATIO 21.5 (6.6-38.0); CALCIUM 8.5 MG/DL (8.5-10.1); CHLORIDE 106 MMOL/L (99-107); CREATININE 0.79 MG/DL (0.40-0.90); GLUCOSE 140 MG/DL (70-104); POTASSIUM 3.7 MMOL/L (3.5-5.1); SODIUM 140 MMOL/L (135-145); TOTAL CARBON DIOXIDE 28.9 MMOL/L (24-32); eGFR 71 ML/MIN
[2021-03-29 07:00] VITALS: BP 163/56
[2021-03-29] MEDS: docusate sod 100mg capsule PO SCH (07:48)
[2021-03-29] MEDS: nystatin 15 GM powder TP SCH ×2 (07:48→13:00)
[2021-03-29] MEDS: K and/or MAG REPLACEMENT MC SCH (08:33)
[2021-03-29] MEDS: insulin Lispro (HumaLOG) vial - multi-dose SQ SCH (09:30)
[2021-03-29] MEDS ORDERED: PANT-47 PO ×2 (10:55)
[2021-03-29 11:31] VITALS: BP 164/46
--- NOTE | 2021-03-29 13:43 | NUR ---
Notified Tyra in case management that patient will need home health w/ PT at home.
--- NOTE | 2021-03-29 16:31 | NUR ---
Patient was educated on diet, medications, follow-up care, worsening symptoms, diabetic educations, and home health. IV was removed and cannula was intact. Patient was wheeled down by auxiliary.
--- NOTE | 2021-03-30 12:12 | NUR ---
CASE MANAGEMENT DISCHARGE FOLLOW UP: Spoke with pt via telephone. Reports that she is doing okay, some weakness, a little difficulty breathing, some pain still in her groin (will f/u with her PCP on Sunday regarding pain in groin). Denies CP, bleeding, dizziness/faintness. Pt states that she has been having trouble hold cup with left arm, denies headache, visual changes, speech changes, changes in mentation, facial drooping. Pt states that she is not having a stroke. Advised pt that if her symptoms persist or get worse to seek medical attention, she verbalizes understanding but states that she does not need to come in at this time. In regards to breathing difficulties, pt states that she only wore her oxygen last night, states that she is trying to not wear it during the day, advised that MD wants her to keep her SpO2 around 90%, she verbalizes understanding and states that she is using a pulse oximeter to monitor SpO2. Pt states that she has not used any of her inhalers today. Upon inquiry, pt was not aware that she needed to continue all home medications except for omeprazole and xarelto(the xarelto on hold for one week), educated pt on which medications to take and how, she verbalizes understanding, states that she will use inhaler as prescribed. Verbalizes compliance with MD discharge instructions. Verbalizes understanding of the importance in making/keeping follow-up appointments, has appts scheduled with PCP (next Sunday04/04/21) and special day class teacher (sometime next week), she states that she will get referral from PCP to see youth nutritional monitor to review endoscopy study during hospitalization. Pt will also follow up with her station worker, wants to make sure records are sent from this hospitalization to his office as she requested at her admission, will follow up with medical records. Pt would like to know when [facility] will come out to see her, will follow up with [facility]. States no further questions/concerns at this time. 1233 T/c to [facility], they will call pt for appt within 24-48hrs, will notify pt. 1237 T/c to pt, notified that [facility] will call to set up appointment. Provided pt with their contact number in case she needs their assistance. 1241 T/c to medical records, unable to state whether records were sent or not. States that chart won't be finished for about 7 days, will leave note to make sure records sent when available to pt's station worker, Dr Cox, however unable to make sure that it will happen. States that records are not automatically sent when pt requests them to be sent.
[2021-03-31] MEDS ORDERED: PANT-47 PO (20:44)
== END 2021-03-29 14:32 | disposition home health service (06) | DRG 378 ==
LOC: ER 23:23 → ED HOLD 03-27 01:58 → SUR 3N 03-27 03:36
PROVIDERS: ADMIT Family Medicine; ATTEND Family Medicine
PROC: 0DB68ZX Excision of Stomach, Via Natural or Artificial Opening Endoscopic, Diagnostic (ICD-10-PCS; principal; 2021-03-27)
PROC: 0W3P8ZZ Control Bleeding in Gastrointestinal Tract, Via Natural or Artificial Opening Endoscopic (ICD-10-PCS; 2021-03-27)
PROC: 30233N1 Transfusion of Nonautologous Red Blood Cells into Peripheral Vein, Percutaneous Approach (ICD-10-PCS; 2021-03-27)
PROC: BW211ZZ Computerized Tomography (CT Scan) of Abdomen and Pelvis using Low Osmolar Contrast (ICD-10-PCS; 2021-03-27)
DX: K31.811 Angiodysplasia of stomach and duodenum with bleeding (principal); Z68.42 Body mass index [BMI] 45.0-49.9, adult; E66.01 Morbid (severe) obesity due to excess calories; K80.20 Calculus of gallbladder without cholecystitis without obstruction; K21.9 Gastro-esophageal reflux disease without esophagitis; I12.9 Hypertensive chronic kidney disease with stage 1 through stage 4 chronic kidney disease, or unspecified chronic kidney disease; E11.22 Type 2 diabetes mellitus with diabetic chronic kidney disease; N18.9 Chronic kidney disease, unspecified; D50.0 Iron deficiency anemia secondary to blood loss (chronic); K44.9 Diaphragmatic hernia without obstruction or gangrene; K22.2 Esophageal obstruction; K29.70 Gastritis, unspecified, without bleeding; K31.7 Polyp of stomach and duodenum; E78.5 Hyperlipidemia, unspecified; J44.9 Chronic obstructive pulmonary disease, unspecified; Z79.4 Long term (current) use of insulin; Z80.8 Family history of malignant neoplasm of other organs or systems; Z83.3 Family history of diabetes mellitus; Z87.891 Personal history of nicotine dependence; Z88.5 Allergy status to narcotic agent; Z88.0 Allergy status to penicillin; Z88.2 Allergy status to sulfonamides; Z88.8 Allergy status to other drugs, medicaments and biological substances; Z79.899 Other long term (current) drug therapy; Z95.810 Presence of automatic (implantable) cardiac defibrillator; Z71.3 Dietary counseling and surveillance
CPT/HCPCS: 36415; 36430; 43227; 43239; 43255; 71045; 73502; 74177; 80053; 81001; 82948; 83036; 83735; 85007; 85008; 85025; 85027; 86885; 86900; 86901; 86920; 87081; 88305; 93005; 96372; 97110; 97161; 97530; 99152; 99153; 99285; A4620; C9113; G0378; J1815; J2250; J3010; J7040; P9016; Q9967

== ENCOUNTER 2021-07-14 02:25 | Emergency (ER) | payer MEDICARE, BC, MEDICAID ==
[~2021-07-14] VITALS: Ht 162.6 cm; Wt 118.0 kg
[~2021-07-14 02:25] MED LIST changes: +ALBU8.5H17 IH; -ALBU8HFA PO; +ATOR80TA PO; +BUDE10.2 INH; +CALC0.5C2 PO; +CLOP75TA34 PO; -DOCU-28 PO; +DOXA2TAB46 PO; +FERR325T28 PO; -FERR325T39 PO; -FOLI-91 PO; +FURO-150 PO; -INSU100C10 PO; -INSU100C10 SQ; +MAGN400T29 PO; +METO50TA16 PO; +MULT-1133 PO; -OMEP40CA13 PO; +PANT-47 PO; -SIMV-42 PO
[2021-07-14 02:35] VITALS: BP 168/40
[2021-07-14] MEDS ORDERED: dexamethasone sod phosphate 10mg/ml inj IV STA (03:16)
== END 2021-07-14 05:30 | disposition home or self-care (01) ==
LOC: ER 02:25
DX: R06.00 Dyspnea, unspecified (principal); R06.02 Shortness of breath; R05 Cough; I50.9 Heart failure, unspecified; E11.9 Type 2 diabetes mellitus without complications; F41.9 Anxiety disorder, unspecified; Z95.0 Presence of cardiac pacemaker; Z98.890 Other specified postprocedural states; Z60.2 Problems related to living alone; Z88.2 Allergy status to sulfonamides; Z88.0 Allergy status to penicillin; Z88.5 Allergy status to narcotic agent; Z88.8 Allergy status to other drugs, medicaments and biological substances; Z79.899 Other long term (current) drug therapy
CPT/HCPCS: 71045; 93005; 96374; 99284; J1100

== ENCOUNTER 2021-08-30 09:00 | Emergency (ER) | payer MEDICARE, BC, MEDICAID ==
[~2021-08-30] VITALS: Ht 162.6 cm; Wt 122.7 kg
[2021-08-30 09:08] VITALS: BP 162/48
[2021-08-30 09:36] LABS: BASOPHILS % (AUTO) 0.5 % (0-1); EOSINOPHILS # (AUTO) 0.1 X10'3 (0-0.9); EOSINOPHILS % (AUTO) 1.5 % (0-6); HEMATOCRIT 25.2 % (35.0-45.0); HEMOGLOBIN 8.1 g/dl (12.0-16.0); LYMPHOCYTES # (AUTO) 0.6 X10'3 (1.1-4.8); LYMPHOCYTES % (AUTO) 8.6 % (21-51); MEAN CORPUSCULAR HEMOGLOBIN 25.6 PG (27.0-31.0); MEAN CORPUSCULAR HGB CONC 32.2 g/dL (33.0-36.5); MEAN CORPUSCULAR VOLUME 79.6 FL (78-98); MEAN PLATELET VOLUME 8.8 FL (7.4-10.4); MONOCYTES # (AUTO) 0.5 X10'3 (0-0.9); MONOCYTES % (AUTO) 6.5 % (2-12); NEUTROPHILS # (AUTO) 5.8 X10'3 (1.8-7.7); NEUTROPHILS % (AUTO) 82.9 % (42-75); PLATELET COUNT 188 X10'3 (140-440); RED BLOOD COUNT 3.16 X10'6 (4.20-5.60); RED CELL DISTRIBUTION WIDTH 19.5 % (11.5-14.5); WHITE BLOOD COUNT 6.9 X10'3 (4.5-11.0)
[2021-08-30 09:51] LABS: ALANINE AMINOTRANSFERASE 27 U/L (12-78); ALBUMIN 3.3 G/DL (3.4-5.0); ALKALINE PHOSPHATASE 186 IU/L (46-116); ANION GAP 6 (8-16); ASPARTATE AMINO TRANSFERASE 26 U/L (10-37); BILIRUBIN,TOTAL 0.5 MG/DL (0.1-1.0); BLOOD UREA NITROGEN 29 MG/DL (7-18); BUN/CREATININE RATIO 27.1 (6.6-38.0); CALCIUM 9.1 MG/DL (8.5-10.1); CHLORIDE 104 MMOL/L (99-107); CREATININE 1.07 MG/DL (0.40-0.90); GLUCOSE 215 MG/DL (70-104); POTASSIUM 4.2 MMOL/L (3.5-5.1); SODIUM 138 MMOL/L (135-145); TOTAL CARBON DIOXIDE 28.5 MMOL/L (24-32); TOTAL PROTEIN 6.5 G/DL (6.4-8.2); eGFR 50 ML/MIN
[2021-08-30 10:00] LABS: PLATELET ESTIMATE NORMAL
[2021-08-30 10:01] LABS: ANISOCYTOSIS 2+; ELLIPTOCYTES FEW; HYPOCHROMASIA 1+; MICROCYTOSIS 1+; SCHISTOCYTES FEW
== END 2021-08-30 11:03 | disposition home or self-care (01) ==
LOC: ER 09:01
DX: R04.2 Hemoptysis (principal); M54.50 Low back pain, unspecified; I50.9 Heart failure, unspecified; E11.9 Type 2 diabetes mellitus without complications; J44.9 Chronic obstructive pulmonary disease, unspecified; Z98.890 Other specified postprocedural states; Z95.0 Presence of cardiac pacemaker; Z88.8 Allergy status to other drugs, medicaments and biological substances; Z88.2 Allergy status to sulfonamides; Z88.0 Allergy status to penicillin; Z88.6 Allergy status to analgesic agent; Z79.899 Other long term (current) drug therapy; Z86.2 Personal history of diseases of the blood and blood-forming organs and certain disorders involving the immune mechanism
CPT/HCPCS: 80053; 85008; 85025; 85610; 99284

== ENCOUNTER 2021-12-20 02:53 | Inpatient (IN) | payer MEDICARE, BC, MEDICAID ==
[~2021-12-20] VITALS: Ht 162.6 cm; Wt 129.0 kg
[2021-12-20 03:07] LABS: ABG BASE EXCESS -3.5 mmol/L (-2.0-2.0); ABG HCO3 20.9 mmol/L (22.0-26.0); ABG OXYGEN SATURATION 95.8 % (94-97); ABG PCO2 (T) 33.2 mmHg (32.0-45.0); ABG PO2 (T) 84.1 mmHg (75.0-100.0); ALLEN'S TEST POSITIVE; FCOHb 0.4 % (0.0-3.9); FLOW 8 L/min; FMetHb 0.5 % (0.0-1.5); FO2Hb 94.9 % (94-97); PATIENT TEMPERATURE 36.2; TOTAL HEMOGLOBIN 8.1 G/dl (12.0-16.0)
[2021-12-20] MEDS ORDERED: methylPREDNISolone sod succ 125mg/2ml vial IV ONE (03:10)
[2021-12-20 03:21] LABS: BASOPHILS % (AUTO) 0.1 % (0-1); EOSINOPHILS % (AUTO) 0.4 % (0-6); HEMOGLOBIN 7.9 g/dl (12.0-16.0); LYMPHOCYTES % (AUTO) 9.3 % (21-51); MEAN CORPUSCULAR HEMOGLOBIN 23.9 PG (27.0-31.0); MEAN CORPUSCULAR HGB CONC 31.5 g/dL (33.0-36.5); MEAN CORPUSCULAR VOLUME 75.9 FL (78-98); MEAN PLATELET VOLUME 8.5 FL (7.4-10.4); MONOCYTES # (AUTO) 0.7 X10'3 (0-0.9); MONOCYTES % (AUTO) 6.5 % (2-12); NEUTROPHILS # (AUTO) 9.2 X10'3 (1.8-7.7); NEUTROPHILS % (AUTO) 83.7 % (42-75); PLATELET COUNT 262 X10'3 (140-440); RED CELL DISTRIBUTION WIDTH 21.1 % (11.5-14.5)
[2021-12-20 03:34] LABS: ALBUMIN 3.4 G/DL (3.4-5.0); ANION GAP 9 (8-16); CHLORIDE 103 MMOL/L (99-107); POTASSIUM 4.7 MMOL/L (3.5-5.1); SODIUM 139 MMOL/L (135-145); TOTAL CARBON DIOXIDE 26.9 MMOL/L (24-32)
[2021-12-20] MEDS ORDERED: levoFLOXACIN-Levaquin 750MG/D5 150 ML IV STA (04:07)
[2021-12-20 04:15] LABS: BLOOD UREA NITROGEN 33 MG/DL (7-18); BUN/CREATININE RATIO 31.1 (6.6-38.0); CALCIUM 8.6 MG/DL (8.5-10.1); CREATININE 1.06 MG/DL (0.40-0.90); GLUCOSE 232 MG/DL (70-104); eGFR 51 ML/MIN
[2021-12-20] MEDS ORDERED: heparin 10,000 units/1 ML INJ IV ONE ×2 (04:20→04:30)
[2021-12-20] MEDS ORDERED: heparin 10,000 units/1 ML INJ IV PRN (04:20)
[2021-12-20] MEDS ORDERED: heparin 25,000 UNIT/250ml bag 250 ML IV SCH (04:20)
[2021-12-20 04:25] LABS: ANISOCYTOSIS 3+; ELLIPTOCYTES 1+; HYPOCHROMASIA 2+; MICROCYTOSIS 1+; PLATELET ESTIMATE NORMAL; POLYCHROMASIA 1+; SCHISTOCYTES FEW; TARGET CELLS FEW
[2021-12-20] MEDS ORDERED: pantoprazole 40MG/D5 100ML BAG 100 ML IV STA (04:26)
[2021-12-20] MEDS ORDERED: pantoprazole 40MG/NS 100ML BAG 100 ML IV STA ×2 (04:28→05:03)
[2021-12-20] MEDS ORDERED: aspirin 325mg tablet PO ONE (04:30)
[2021-12-20 04:41] LABS: APTT 21 SECONDS (22-32)
[2021-12-20] MEDS ORDERED: INSU100V9 SQ (04:58)
[2021-12-20] MEDS ORDERED: INSU100I8 SQ (04:58)
[2021-12-20] MEDS ORDERED: FLUT1AER PO (04:58)
[2021-12-20] MEDS ORDERED: INSU100V11 SQ (04:58)
[2021-12-20] MEDS ORDERED: IPRA3AMP31 NEB (04:58)
--- NOTE | 2021-12-20 06:28 | NUR ---
PT RECEIVED ON A [facility] ASLEEP,ON O2 6L,SATING 99% TITRATED DOWN TO 3L SATING 97%. WE WILL MONITOR.
[2021-12-20] MEDS ORDERED: nitroGLYCERIN 0.4mg/hour patch TD ONE (06:50)
[2021-12-20] MEDS ORDERED: regadenoson 0.4mg/5ml syringe IV PRN (08:35)
[2021-12-20] MEDS ORDERED: magnesium Cl slow-release 64mg tablet PO PRN (08:35)
[2021-12-20] MEDS ORDERED: mag hydrox/Alum hydrox/simeth 30ml oral suspension PO PRN (08:35)
[2021-12-20] MEDS ORDERED: potassium CL 10mEq/100ml bag 100 ML IV PRN (08:35)
[2021-12-20] MEDS ORDERED: HYDROcodone/acetaminophen 5mg/325mg tablet PO PRN (08:35)
[2021-12-20] MEDS ORDERED: nitroGLYCERIN 0.4mg SUBLingual tab SL PRN (08:35)
[2021-12-20] MEDS ORDERED: metoprolol tartrate 1mg/ml inj IV PRN (08:35)
[2021-12-20] MEDS ORDERED: potassium Cl 20 mEq SR tablet PO PRN ×2 (08:35)
[2021-12-20] MEDS ORDERED: ondansetron/PF 4mg/2ml inj IV PRN (08:35)
[2021-12-20] MEDS ORDERED: bisacodyl 10mg suppository rectal RC PRN (08:35)
[2021-12-20] MEDS ORDERED: ipratropium/albuterol 3ml nebule NEB PRN (08:35)
[2021-12-20] MEDS ORDERED: PERFLUTREN PROTEIN-A MICROSPHR (Optison) 0.22 MG/ML 3ML VIAL IV PRN (08:35)
[2021-12-20] MEDS ORDERED: HYDROcodone/acetaminophen 10/325mg tab PO PRN (08:35)
[2021-12-20] MEDS ORDERED: magnesium 4gm in 100ml NS 100 ML IV PRN (08:35)
[2021-12-20] MEDS ORDERED: ondansetron 4mg rapidly disintigrating tab PO PRN (08:35)
[2021-12-20] MEDS ORDERED: acetaminophen 325mg tablet PO PRN ×2 (08:35)
[2021-12-20] MEDS ORDERED: magnesium 2GM in 50ml NS 50 ML IV PRN (08:35)
[2021-12-20] MEDS ORDERED: magnesium hydroxide 30ml (MOM) UD suspension PO PRN (08:35)
[2021-12-20] MEDS ORDERED: aminophylline 250mg/10ml inj. IV PRN (08:35)
[2021-12-20] MEDS ORDERED: normal saline 1000ml 1,000 ML IV SCH (08:35)
[2021-12-20] MEDS ORDERED: dextrose 50%-water 50ml dispensing syringe IV PRN ×2 (09:20)
[2021-12-20] MEDS ORDERED: insulin Lispro (HumaLOG) vial - multi-dose SQ SCH (09:20)
[2021-12-20] MEDS ORDERED: MESSAGE TO PHARMACY PO ONE (09:20)
[2021-12-20] MEDS ORDERED: dextrose ORAL solution 15 GM/59 ML bottle PO PRN ×2 (09:20)
[2021-12-20] MEDS ORDERED: glucagon, human recombinant 1mg kit SUBCUT PRN (09:20)
[2021-12-20 09:25] LABS: MAGNESIUM 2.1 MG/DL (1.5-2.4)
[2021-12-20 09:31] LABS: POTASSIUM 4.6 MMOL/L (3.5-5.1)
[2021-12-20 09:56] LABS: HEMOGLOBIN A1C 8.2 % (4.5-6.2)
--- NOTE | 2021-12-20 10:00 | NUR ---
ASSISTED PT ON A HOSPITAL BED.
--- NOTE | 2021-12-20 10:07 | NUR ---
Spoke to Dr. katz made aware of troponin result trending high,no reported chest discomfort,Md to consult Briseyda WONG, and MD to order BT for hgb 7.9.
[2021-12-20] MEDS: metoprolol tartrate 50mg tablet PO SCH (10:18)
[2021-12-20] MEDS: atorvastatin 20mg tablet PO SCH (10:18)
[2021-12-20] MEDS: pantoprazole 40MG/NS 100ML BAG 100 ML IV SCH ×3 (10:23→20:23)
[2021-12-20] MEDS: budesonide 0.5mg/2ml UD nebule IH SCH ×2 (10:31→19:46)
[2021-12-20] MEDS: ipratropium/albuterol 3ml nebule NEB SCH ×4 (10:31→23:26)
[2021-12-20 10:46] VITALS: BP 146/53
[2021-12-20 11:15] VITALS: BP 141/46
[2021-12-20] MEDS: insulin Lispro (HumaLOG) vial - multi-dose SQ SCH ×3 (12:00→21:00)
[2021-12-20 12:27] LABS: HEMATOCRIT 23.8 % (35.0-45.0); HEMOGLOBIN 7.6 g/dl (12.0-16.0); MEAN CORPUSCULAR HEMOGLOBIN 24.6 PG (27.0-31.0); MEAN CORPUSCULAR HGB CONC 32.1 g/dL (33.0-36.5); MEAN CORPUSCULAR VOLUME 76.7 FL (78-98); MEAN PLATELET VOLUME 8.9 FL (7.4-10.4); PLATELET COUNT 215 X10'3 (140-440); WHITE BLOOD COUNT 8.5 X10'3 (4.5-11.0)
[2021-12-20 13:05] VITALS: BP 144/49
--- NOTE | 2021-12-20 13:44 | NUR ---
BT COMPLETED, NO ADVERSE REACTION NOTED.
[2021-12-20] MEDS ORDERED: albuterol 2.5 MG/3 ML nebule NEB SCH (15:00)
[2021-12-20] MEDS ORDERED: INFLUENZA VACCINE IMVAC ONE (16:20)
--- NOTE | 2021-12-20 16:23 | NUR ---
Page to Dr. Tovar re critical trop PAGER ID: [phone] MESSAGE: [phone] Jesusita Anurag. Critical results for 12 hr Troponin; 3368. Pt denies any chest pain at this time. pt is currently NPO. Is there a reason why she needs to be NPO now or can she be NPO starting at midnight? Thanks, Emperatriz RN PCU ext [phone]
[2021-12-20 16:35] VITALS: BP 147/51
[2021-12-20] MEDS: calcitriol 0.25mcg capsule PO SCH (17:18)
[2021-12-20] MEDS: methylPREDNISolone sod succ 125mg/2ml vial IV SCH ×2 (17:19→20:24)
[2021-12-20 18:00] VITALS: BP 167/78
[2021-12-20 18:24] LABS: HEMATOCRIT 24.9 % (35.0-45.0); MEAN CORPUSCULAR HEMOGLOBIN 24.9 PG (27.0-31.0); MEAN CORPUSCULAR HGB CONC 32.2 g/dL (33.0-36.5); MEAN CORPUSCULAR VOLUME 77.1 FL (78-98); MEAN PLATELET VOLUME 9.2 FL (7.4-10.4); PLATELET COUNT 233 X10'3 (140-440); RED BLOOD COUNT 3.22 X10'6 (4.20-5.60); RED CELL DISTRIBUTION WIDTH 20.4 % (11.5-14.5); WHITE BLOOD COUNT 8.1 X10'3 (4.5-11.0)
--- NOTE | 2021-12-20 18:55 | NUR ---
Problems reprioritized. Patient report given, questions answered & plan of care reviewed with TEGAN Dowd.
[2021-12-20] MEDS: K and/or MAG REPLACEMENT MC SCH (20:00)
[2021-12-20] MEDS: amitriptyline 50mg tablet PO SCH (20:23)
[2021-12-20] MEDS: docusate sod 100mg capsule PO SCH (20:24)
[2021-12-20] MEDS ORDERED: temazepam 15mg capsule PO PRN (21:00)
[2021-12-20] MEDS: insulin glargine (Lantus) pen - multi-dose SQ SCH (21:00)
[2021-12-20 22:00] VITALS: BP 147/68
[2021-12-21] VITALS (16 sets, daily range): BP systolic 106–149; BP diastolic 29–80
[2021-12-21] MEDS: pantoprazole 40MG/NS 100ML BAG 100 ML IV SCH ×5 (01:00→21:05)
[2021-12-21 01:26] LABS: HEMATOCRIT 24.2 % (35.0-45.0); HEMOGLOBIN 7.9 g/dl (12.0-16.0); MEAN CORPUSCULAR HEMOGLOBIN 24.9 PG (27.0-31.0); MEAN CORPUSCULAR HGB CONC 32.6 g/dL (33.0-36.5); MEAN CORPUSCULAR VOLUME 76.3 FL (78-98); MEAN PLATELET VOLUME 8.9 FL (7.4-10.4); PLATELET COUNT 223 X10'3 (140-440); RED BLOOD COUNT 3.17 X10'6 (4.20-5.60); RED CELL DISTRIBUTION WIDTH 20.7 % (11.5-14.5); WHITE BLOOD COUNT 8.6 X10'3 (4.5-11.0)
[2021-12-21] MEDS: methylPREDNISolone sod succ 125mg/2ml vial IV SCH ×4 (02:00→21:06)
[2021-12-21 06:55] LABS: HEMATOCRIT 22.9 % (35.0-45.0); HEMOGLOBIN 7.4 g/dl (12.0-16.0); MEAN CORPUSCULAR HEMOGLOBIN 24.9 PG (27.0-31.0); MEAN CORPUSCULAR HGB CONC 32.3 g/dL (33.0-36.5); MEAN PLATELET VOLUME 9.3 FL (7.4-10.4); PLATELET COUNT 208 X10'3 (140-440); RED BLOOD COUNT 2.97 X10'6 (4.20-5.60); RED CELL DISTRIBUTION WIDTH 20.8 % (11.5-14.5); WHITE BLOOD COUNT 7.6 X10'3 (4.5-11.0)
[2021-12-21 07:04] LABS: ALANINE AMINOTRANSFERASE 21 U/L (12-78); ALBUMIN/GLOBULIN RATIO 1.1 (1.1-1.5); ALKALINE PHOSPHATASE 116 IU/L (46-116); ANION GAP 7 (8-16); ASPARTATE AMINO TRANSFERASE 26 U/L (10-37); BLOOD UREA NITROGEN 42 MG/DL (7-18); BUN/CREATININE RATIO 38.5 (6.6-38.0); CALCIUM 8.4 MG/DL (8.5-10.1); CHLORIDE 104 MMOL/L (99-107); CHOL/HDL RATIO 1.7 (0.00-4.99); CHOLESTEROL 121 MG/DL (0-200); CREATININE 1.09 MG/DL (0.40-0.90); GLUCOSE 413 MG/DL (70-104); HDL CHOLESTEROL 72 MG/DL (35-60); LDL CHOLESTEROL 38 MG/DL (50-100); MAGNESIUM 2.4 MG/DL (1.5-2.4); POTASSIUM 4.8 MMOL/L (3.5-5.1); SODIUM 137 MMOL/L (135-145); TOTAL CARBON DIOXIDE 25.6 MMOL/L (24-32); TOTAL PROTEIN 5.8 G/DL (6.4-8.2); TRIGLYCERIDES 66 MG/DL (20-135); eGFR 49 ML/MIN
[2021-12-21] MEDS: budesonide 0.5mg/2ml UD nebule IH SCH ×2 (07:13→19:23)
[2021-12-21] MEDS: ipratropium/albuterol 3ml nebule NEB SCH ×5 (07:13→23:32)
--- NOTE | 2021-12-21 07:34 | NUR ---
Paged Dr. Tovar regarding AM blood sugar PAGER ID: [phone] MESSAGE: [phone] Jesusita Osborn [phone] blood sugar is 406. Pt is NPO. Will cover with 11 units per scale. She never received Humalog 30 units before dinner- it was not available. Do you want me to give it now, with patient NPO. April RN PCU ext [phone]
[2021-12-21] MEDS ORDERED: non-formulary drug (Fluticasone/Vilanterol (Breo Ellipta 100-25 Mcg INH) 1 PUFFS) PO SCH (08:00)
[2021-12-21] MEDS: doxazosin mesylate 2mg tablet PO SCH (08:02)
[2021-12-21] MEDS: atorvastatin 20mg tablet PO SCH (08:02)
[2021-12-21] MEDS: docusate sod 100mg capsule PO SCH ×2 (08:03→21:05)
[2021-12-21] MEDS: metoprolol tartrate 50mg tablet PO SCH (08:03)
[2021-12-21] MEDS: nitroGLYCERIN 0.4mg/hour patch TD SCH (08:04)
[2021-12-21] MEDS: K and/or MAG REPLACEMENT MC SCH ×2 (08:11→20:00)
[2021-12-21] MEDS: insulin Lispro (HumaLOG) vial - multi-dose SQ SCH ×4 (08:46→21:00)
[2021-12-21] MEDS ORDERED: FLU VACC QS2021-22(6MOS UP)/PF 60 MCG/0.5 ML SYRINGE IM ONE (10:00)
[2021-12-21] MEDS ORDERED: pneumococcal 23-VAL P-sac vacc 25 mcg/0.5ml vial IMVAC ONE (10:00)
[2021-12-21] MEDS ORDERED: fentaNYL/PF 50MCG/1 ML 2ML syringe ONE (11:56)
[2021-12-21] MEDS ORDERED: LIDOcaine Viscous 15ml cup ONE (11:57)
[2021-12-21] MEDS ORDERED: MIDAZolam 1 MG/ML 5ML VIAL ONE ×2 (11:57)
--- NOTE | 2021-12-21 12:31 | NUR ---
Diabetes Consult: Noted pt w/ hx of T2DM, A1c 8.2. Pt currently occupied w/ other medical staff, written DM ed w/ RD contact info placed in pt chart Addendum: 12/21/21 at [address] Amended: Links added.
[2021-12-21 12:58] LABS: HEMATOCRIT 24.7 % (35.0-45.0); MEAN CORPUSCULAR HGB CONC 32.3 g/dL (33.0-36.5); MEAN CORPUSCULAR VOLUME 77.3 FL (78-98); MEAN PLATELET VOLUME 9.1 FL (7.4-10.4); PLATELET COUNT 208 X10'3 (140-440); RED CELL DISTRIBUTION WIDTH 20.7 % (11.5-14.5); WHITE BLOOD COUNT 8.7 X10'3 (4.5-11.0)
[2021-12-21] MEDS: calcitriol 0.25mcg capsule PO SCH (16:04)
--- NOTE | 2021-12-21 16:12 | NUR ---
Pt arrived back to the floor from [facility] after an EGD. No distress noted. No complaints of pain, SOB or chest pain. VSS. Will continue to monitor.
[2021-12-21 17:46] LABS: HEMATOCRIT 24.5 % (35.0-45.0); MEAN CORPUSCULAR HGB CONC 32.5 g/dL (33.0-36.5); MEAN CORPUSCULAR VOLUME 76.9 FL (78-98); MEAN PLATELET VOLUME 8.9 FL (7.4-10.4); PLATELET COUNT 213 X10'3 (140-440); RED BLOOD COUNT 3.18 X10'6 (4.20-5.60); RED CELL DISTRIBUTION WIDTH 20.6 % (11.5-14.5); WHITE BLOOD COUNT 8.7 X10'3 (4.5-11.0)
--- NOTE | 2021-12-21 18:50 | NUR ---
Problems reprioritized. Patient report given, questions answered & plan of care reviewed with TEGAN Dowd.
[2021-12-21] MEDS: amitriptyline 50mg tablet PO SCH (21:04)
[2021-12-21] MEDS: insulin glargine (Lantus) pen - multi-dose SQ SCH (21:19)
[2021-12-22] MEDS: pantoprazole 40MG/NS 100ML BAG 100 ML IV SCH (01:55)
[2021-12-22 02:00] VITALS: BP 130/48
[2021-12-22] MEDS: methylPREDNISolone sod succ 125mg/2ml vial IV SCH ×2 (02:00→07:45)
[2021-12-22 02:14] LABS: HEMATOCRIT 24.6 % (35.0-45.0); MEAN CORPUSCULAR HEMOGLOBIN 24.9 PG (27.0-31.0); MEAN CORPUSCULAR HGB CONC 32.4 g/dL (33.0-36.5); MEAN CORPUSCULAR VOLUME 76.8 FL (78-98); MEAN PLATELET VOLUME 9.2 FL (7.4-10.4); PLATELET COUNT 223 X10'3 (140-440); RED BLOOD COUNT 3.21 X10'6 (4.20-5.60); RED CELL DISTRIBUTION WIDTH 20.7 % (11.5-14.5); WHITE BLOOD COUNT 10.6 X10'3 (4.5-11.0)
[2021-12-22 06:02] LABS: HEMATOCRIT 24.1 % (35.0-45.0); HEMOGLOBIN 7.8 g/dl (12.0-16.0); MEAN CORPUSCULAR HEMOGLOBIN 24.9 PG (27.0-31.0); MEAN CORPUSCULAR HGB CONC 32.4 g/dL (33.0-36.5); MEAN CORPUSCULAR VOLUME 76.8 FL (78-98); MEAN PLATELET VOLUME 9.3 FL (7.4-10.4); PLATELET COUNT 205 X10'3 (140-440); RED BLOOD COUNT 3.13 X10'6 (4.20-5.60); RED CELL DISTRIBUTION WIDTH 20.9 % (11.5-14.5); WHITE BLOOD COUNT 9.4 X10'3 (4.5-11.0)
[2021-12-22 06:23] LABS: ALANINE AMINOTRANSFERASE 21 U/L (12-78); ALBUMIN 3.2 G/DL (3.4-5.0); ALBUMIN/GLOBULIN RATIO 1.2 (1.1-1.5); ALKALINE PHOSPHATASE 109 IU/L (46-116); ANION GAP 8 (8-16); ASPARTATE AMINO TRANSFERASE 29 U/L (10-37); BILIRUBIN,TOTAL 0.8 MG/DL (0.1-1.0); BLOOD UREA NITROGEN 56 MG/DL (7-18); CALCIUM 8.7 MG/DL (8.5-10.1); CHLORIDE 105 MMOL/L (99-107); CREATININE 1.12 MG/DL (0.40-0.90); GLUCOSE 329 MG/DL (70-104); MAGNESIUM 2.5 MG/DL (1.5-2.4); POTASSIUM 4.7 MMOL/L (3.5-5.1); SODIUM 140 MMOL/L (135-145); TOTAL CARBON DIOXIDE 27.1 MMOL/L (24-32); TOTAL PROTEIN 5.8 G/DL (6.4-8.2); eGFR 47 ML/MIN
[2021-12-22] MEDS: ipratropium/albuterol 3ml nebule NEB SCH ×2 (07:07→10:56)
[2021-12-22] MEDS: budesonide 0.5mg/2ml UD nebule IH SCH (07:07)
[2021-12-22] MEDS: doxazosin mesylate 2mg tablet PO SCH (07:42)
[2021-12-22] MEDS: nitroGLYCERIN 0.4mg/hour patch TD SCH (07:42)
[2021-12-22 07:43] VITALS: BP_SYST 136
[2021-12-22] MEDS: calcitriol 0.25mcg capsule PO SCH (07:43)
[2021-12-22] MEDS: metoprolol tartrate 50mg tablet PO SCH (07:43)
[2021-12-22] MEDS: docusate sod 100mg capsule PO SCH (07:44)
[2021-12-22] MEDS: atorvastatin 20mg tablet PO SCH (07:44)
[2021-12-22] MEDS: insulin Lispro (HumaLOG) vial - multi-dose SQ SCH (10:13)
--- NOTE | 2021-12-22 12:08 | NUR ---
DISCHARGED. TEACHING /INSTRUCTIONS GIVEN Verbalize understanding. STATES HAVE ALL BELONGINGS.DENIES PAIN, QUESTIONS ANSWERED.INFORMED THE IMPORTANCE OF COMPLIANCE WITH MEDICATION AND KEEPING SCHEDULED MD APPTS.PT ACCOMPANIED TO PERSONAL VEHICLE-SON IN CAR AWAITING ARRIVAL.
== END 2021-12-22 13:00 | disposition home or self-care (01) | DRG 377 ==
LOC: ER 02:54 → ED HOLD 08:31 → UNDOADMIN 08:31 → ED HOLD 08:43 → PCU 3S 16:00 → ED HOLD 16:00
PROVIDERS: ADMIT Family Medicine; ATTEND Family Medicine
PROC: 30233N1 Transfusion of Nonautologous Red Blood Cells into Peripheral Vein, Percutaneous Approach (ICD-10-PCS; principal; 2021-12-20)
PROC: 0D568ZZ Destruction of Stomach, Via Natural or Artificial Opening Endoscopic (ICD-10-PCS; 2021-12-21)
DX: K92.2 Gastrointestinal hemorrhage, unspecified (principal); I21.4 Non-ST elevation (NSTEMI) myocardial infarction; J18.9 Pneumonia, unspecified organism; D62 Acute posthemorrhagic anemia; J44.0 Chronic obstructive pulmonary disease with (acute) lower respiratory infection; J44.1 Chronic obstructive pulmonary disease with (acute) exacerbation; J96.10 Chronic respiratory failure, unspecified whether with hypoxia or hypercapnia; I13.0 Hypertensive heart and chronic kidney disease with heart failure and stage 1 through stage 4 chronic kidney disease, or unspecified chronic kidney disease; Z20.822 Contact with and (suspected) exposure to COVID-19; N18.9 Chronic kidney disease, unspecified; E78.5 Hyperlipidemia, unspecified; I27.20 Pulmonary hypertension, unspecified; I25.10 Atherosclerotic heart disease of native coronary artery without angina pectoris; F41.9 Anxiety disorder, unspecified; E11.22 Type 2 diabetes mellitus with diabetic chronic kidney disease; F32.A Depression, unspecified; I50.812 Chronic right heart failure; K31.819 Angiodysplasia of stomach and duodenum without bleeding; M06.9 Rheumatoid arthritis, unspecified; Z95.0 Presence of cardiac pacemaker; Z80.8 Family history of malignant neoplasm of other organs or systems; Z83.3 Family history of diabetes mellitus; Z87.19 Personal history of other diseases of the digestive system; Z87.891 Personal history of nicotine dependence; Z88.0 Allergy status to penicillin; Z88.2 Allergy status to sulfonamides; Z88.6 Allergy status to analgesic agent; Z88.5 Allergy status to narcotic agent; Z88.8 Allergy status to other drugs, medicaments and biological substances; Z79.899 Other long term (current) drug therapy
CPT/HCPCS: 36415; 36430; 36600; 43227; 71045; 80048; 80053; 80061; 82803; 82948; 83036; 83605; 83735; 83880; 84132; 84484; 85008; 85018; 85025; 85027; 85610; 85730; 86885; 86900; 86901; 86920; 87040; 87635; 90682; 90732; 93005; 93306; 94640; 94760; 99152; 99153; 99285; A4620; C9113; C9803; G0378; J1815; J1956; J2250; J2930; J3010; J7030; J7040; P9016

== ENCOUNTER 2021-12-28 22:47 | Inpatient (IN) | payer MEDICARE, BC, MEDICAID ==
[~2021-12-28] VITALS: Ht 162.6 cm; Wt 128.0 kg
[~2021-12-28 22:47] MED LIST changes: -ACET325C3 PO; -BUDE10.2 INH; -CLON-529 PO; -CLOP75TA34 PO; -FERR325T28 PO; +FLUT1AER PO; -FURO-150 PO; +INSU100I8 SQ; +INSU100V11 SQ; +INSU100V9 SQ; +IPRA3AMP31 NEB; -LANTUS SUBCUT; -MAGN400T29 PO; -MULT-1133 PO
[2021-12-28 23:26] LABS: BASOPHILS # (AUTO) 0.1 X10'3 (0-0.2); BASOPHILS % (AUTO) 1.2 % (0-1); EOSINOPHILS # (AUTO) 0.1 X10'3 (0-0.9); EOSINOPHILS % (AUTO) 1.6 % (0-6); HEMATOCRIT 26.5 % (35.0-45.0); HEMOGLOBIN 8.2 g/dl (12.0-16.0); LYMPHOCYTES # (AUTO) 0.4 X10'3 (1.1-4.8); LYMPHOCYTES % (AUTO) 5.2 % (21-51); MEAN CORPUSCULAR HEMOGLOBIN 23.9 PG (27.0-31.0); MEAN CORPUSCULAR HGB CONC 30.9 g/dL (33.0-36.5); MEAN CORPUSCULAR VOLUME 77.2 FL (78-98); MEAN PLATELET VOLUME 9.5 FL (7.4-10.4); MONOCYTES # (AUTO) 0.6 X10'3 (0-0.9); MONOCYTES % (AUTO) 7.1 % (2-12); NEUTROPHILS # (AUTO) 7.2 X10'3 (1.8-7.7); NEUTROPHILS % (AUTO) 84.9 % (42-75); PLATELET COUNT 214 X10'3 (140-440); RED BLOOD COUNT 3.43 X10'6 (4.20-5.60); RED CELL DISTRIBUTION WIDTH 20.6 % (11.5-14.5); WHITE BLOOD COUNT 8.4 X10'3 (4.5-11.0)
[2021-12-28 23:34] LABS: APTT 26 SECONDS (22-32)
[2021-12-28 23:44] LABS: ALANINE AMINOTRANSFERASE 31 U/L (12-78); ALBUMIN 3.2 G/DL (3.4-5.0); ALKALINE PHOSPHATASE 148 IU/L (46-116); ANION GAP 7 (8-16); ASPARTATE AMINO TRANSFERASE 26 U/L (10-37); BILIRUBIN,TOTAL 0.6 MG/DL (0.1-1.0); BLOOD UREA NITROGEN 25 MG/DL (7-18); CALCIUM 8.1 MG/DL (8.5-10.1); CHLORIDE 106 MMOL/L (99-107); CREATININE 0.96 MG/DL (0.40-0.90); GLUCOSE 155 MG/DL (70-104); LIPASE 286 U/L (73-393); POTASSIUM 4.5 MMOL/L (3.5-5.1); SODIUM 141 MMOL/L (135-145); TOTAL CARBON DIOXIDE 27.7 MMOL/L (24-32); TOTAL PROTEIN 6.5 G/DL (6.4-8.2); eGFR 57 ML/MIN
[2021-12-29] MEDS ORDERED: pantoprazole 40MG/D5 100ML BAG 100 ML IV STA (00:41)
[2021-12-29] MEDS ORDERED: pantoprazole 40MG/NS 100ML BAG 100 ML IV STA (00:43)
[2021-12-29 01:02] LABS: ANISOCYTOSIS 3+; MICROCYTOSIS 1+; PLATELET ESTIMATE NORMAL; POLYCHROMASIA 1+
[2021-12-29 01:03] LABS: ELLIPTOCYTES FEW
[2021-12-29 01:04] LABS: BURR CELLS FEW
[2021-12-29] MEDS ORDERED: potassium Cl 20 mEq SR tablet PO PRN ×2 (01:30)
[2021-12-29] MEDS ORDERED: ondansetron/PF 4mg/2ml inj IV PRN (01:30)
[2021-12-29] MEDS ORDERED: magnesium 4gm in 100ml NS 100 ML IV PRN (01:30)
[2021-12-29] MEDS ORDERED: magnesium 2GM in 50ml NS 50 ML IV PRN (01:30)
[2021-12-29] MEDS ORDERED: potassium CL 10mEq/100ml bag 100 ML IV PRN (01:30)
[2021-12-29] MEDS ORDERED: magnesium Cl slow-release 64mg tablet PO PRN (01:30)
[2021-12-29 02:05] LABS: CLARITY,URINE SLIGHTLY CLOUDY (Clear); COLOR,URINE YELLOW (Yellow); GLUCOSE, URINE 100 mg/dl (Neg); KETONES,URINE NEGATIVE (Neg); LEUKOCYTE ESTERASE ,URINE NEGATIVE (Neg); NITRITES, URINE NEGATIVE (Neg); OCCULT BLOOD,URINE NEGATIVE (Neg); PROTEIN,URINE 30 mg/dl (Neg); UROBILINOGEN,URINE 0.2 E.U/dL (0.2-1.0)
[2021-12-29 02:06] LABS: UA COLLECTION TYPE STRAIGHT CATH
[2021-12-29 02:30] LABS: RENAL CELLS, URINE FEW /HPF; SQUAMOUS EPITHELIAL CELL,UR FEW /LPF (FEW)
[2021-12-29 02:31] LABS: BACTERIA,URINE NONE SEEN /HPF (Neg); RBC,URINE 0-2 /HPF (0-2); WBC,URINE 0-4 /HPF (0-4)
[2021-12-29] MEDS: normal saline 1000ml 1,000 ML IV SCH ×3 (03:22→21:46)
[2021-12-29] MEDS: K and/or MAG REPLACEMENT MC SCH ×2 (07:57→20:00)
[2021-12-29 08:00] VITALS: BP 157/49
[2021-12-29] MEDS: pantoprazole 40MG/NS 100ML BAG 100 ML IV SCH ×2 (08:00→21:36)
[2021-12-29] MEDS ORDERED: ALBUTEROL INHALER 1 PUFF/90 MCG INHALER IH PRN (08:30)
[2021-12-29 20:00] VITALS: BP 138/58
[2021-12-29] MEDS: ipratropium/albuterol 3ml nebule NEB PRN (20:40)
[2021-12-29] MEDS: budesonide 0.5mg/2ml UD nebule IH SCH (20:40)
[2021-12-29] MEDS ORDERED: atorvastatin 20mg tablet PO SCH (21:00)
[2021-12-29] MEDS ORDERED: amitriptyline 50mg tablet PO SCH (21:00)
[2021-12-29] MEDS: pantoprazole 40mg Tablet.DR PO SCH (21:37)
[2021-12-30] MEDS ORDERED: acetaminophen 325mg tablet PO ONE (02:35)
[2021-12-30 06:48] LABS: BASOPHILS % (AUTO) 0.4 % (0-1); EOSINOPHILS # (AUTO) 0.1 X10'3 (0-0.9); EOSINOPHILS % (AUTO) 1.7 % (0-6); HEMATOCRIT 23.2 % (35.0-45.0); HEMOGLOBIN 7.4 g/dl (12.0-16.0); LYMPHOCYTES # (AUTO) 0.6 X10'3 (1.1-4.8); LYMPHOCYTES % (AUTO) 11.5 % (21-51); MEAN CORPUSCULAR HEMOGLOBIN 24.6 PG (27.0-31.0); MEAN CORPUSCULAR HGB CONC 31.9 g/dL (33.0-36.5); MEAN CORPUSCULAR VOLUME 77.1 FL (78-98); MEAN PLATELET VOLUME 9.2 FL (7.4-10.4); MONOCYTES # (AUTO) 0.5 X10'3 (0-0.9); MONOCYTES % (AUTO) 9.8 % (2-12); NEUTROPHILS % (AUTO) 76.6 % (42-75); PLATELET COUNT 175 X10'3 (140-440); RED BLOOD COUNT 3.01 X10'6 (4.20-5.60); RED CELL DISTRIBUTION WIDTH 20.9 % (11.5-14.5); WHITE BLOOD COUNT 5.2 X10'3 (4.5-11.0)
--- NOTE | 2021-12-30 07:02 | NUR ---
Problems reprioritized. Patient report given, questions answered & plan of care reviewed with TEGAN Cancino .
[2021-12-30 07:27] LABS: ALBUMIN 2.8 G/DL (3.4-5.0); ANION GAP 7 (8-16); BLOOD UREA NITROGEN 17 MG/DL (7-18); BUN/CREATININE RATIO 20.2 (6.6-38.0); CALCIUM 8.1 MG/DL (8.5-10.1); CHLORIDE 108 MMOL/L (99-107); CREATININE 0.84 MG/DL (0.40-0.90); GLUCOSE 165 MG/DL (70-104); POTASSIUM 4.3 MMOL/L (3.5-5.1); SODIUM 141 MMOL/L (135-145); TOTAL CARBON DIOXIDE 26.3 MMOL/L (24-32); eGFR 66 ML/MIN
[2021-12-30 07:42] LABS: PLATELET ESTIMATE NORMAL
[2021-12-30 07:43] LABS: ANISOCYTOSIS 3+; HYPOCHROMASIA 1+; MICROCYTOSIS 1+; POLYCHROMASIA 1+; TARGET CELLS 1+; TEAR DROP CELLS FEW
[2021-12-30 07:45] LABS: BURR CELLS 1+
[2021-12-30] MEDS: pantoprazole 40MG/NS 100ML BAG 100 ML IV SCH (07:54)
[2021-12-30] MEDS: ipratropium/albuterol 3ml nebule NEB PRN (07:56)
[2021-12-30] MEDS: budesonide 0.5mg/2ml UD nebule IH SCH (07:56)
[2021-12-30] MEDS: pantoprazole 40mg Tablet.DR PO SCH (07:58)
[2021-12-30] MEDS ORDERED: calcitriol 0.25mcg capsule PO SCH (08:00)
[2021-12-30] MEDS ORDERED: doxazosin mesylate 2mg tablet PO SCH (08:00)
[2021-12-30] MEDS ORDERED: metoprolol tartrate 50mg tablet PO SCH (08:00)
[2021-12-30] MEDS: K and/or MAG REPLACEMENT MC SCH (08:00)
--- NOTE | 2021-12-30 09:57 | NUR ---
DM consult: Pt with T2DM, fairly well controlled for age with A1c 8.2%. Pt provided with DM education and RD contact information at previous admit 12/21. No further education planned at this time. Will remain available. Addendum: 12/30/21 at [address] Amended: Links added.
[2021-12-30] MEDS ORDERED: iohexol 300mg/ml 100ml inj. ONE (10:38)
[2021-12-30] MEDS ORDERED: FURO40TA4 PO (12:34)
[2021-12-30 13:02] VITALS: BP 133/36
[2021-12-30] MEDS ORDERED: furosemide 40mg/4ml inj IV ONE (15:35)
== END 2021-12-30 18:09 | disposition home health service (06) | DRG 378 ==
LOC: ER 22:48 → ED HOLD 12-29 01:31 → PCU 3S 12-29 12:58
PROVIDERS: ADMIT Internal Medicine; ATTEND Internal Medicine
PROC: 30233N1 Transfusion of Nonautologous Red Blood Cells into Peripheral Vein, Percutaneous Approach (ICD-10-PCS; principal; 2021-12-30)
PROC: BW241ZZ Computerized Tomography (CT Scan) of Chest and Abdomen using Low Osmolar Contrast (ICD-10-PCS; 2021-12-30)
DX: K31.811 Angiodysplasia of stomach and duodenum with bleeding (principal); D62 Acute posthemorrhagic anemia; J96.11 Chronic respiratory failure with hypoxia; Z68.42 Body mass index [BMI] 45.0-49.9, adult; R04.2 Hemoptysis; J90 Pleural effusion, not elsewhere classified; K92.1 Melena; Z20.822 Contact with and (suspected) exposure to COVID-19; E04.1 Nontoxic single thyroid nodule; E11.9 Type 2 diabetes mellitus without complications; E66.01 Morbid (severe) obesity due to excess calories; Z60.2 Problems related to living alone; F41.9 Anxiety disorder, unspecified; E78.5 Hyperlipidemia, unspecified; I27.20 Pulmonary hypertension, unspecified; I50.9 Heart failure, unspecified; J44.9 Chronic obstructive pulmonary disease, unspecified; Z79.4 Long term (current) use of insulin; Z79.899 Other long term (current) drug therapy; Z83.3 Family history of diabetes mellitus; Z86.711 Personal history of pulmonary embolism; Z88.0 Allergy status to penicillin; Z88.2 Allergy status to sulfonamides; Z88.5 Allergy status to narcotic agent; Z88.8 Allergy status to other drugs, medicaments and biological substances
CPT/HCPCS: 36415; 36430; 71045; 71260; 80048; 80053; 81001; 82948; 83690; 83735; 83880; 84132; 85008; 85025; 85610; 85730; 86885; 86900; 86901; 86920; 87635; 93005; 94640; 94760; 99285; C9113; G0378; J1940; J7030; P9016; Q9967

== ENCOUNTER 2022-01-12 04:48 | Inpatient (IN) | payer MEDICARE, BC, MEDICAID ==
[~2022-01-12] VITALS: Ht 162.6 cm; Wt 127.0 kg
[2022-01-12] VITALS (8 sets, daily range): BP systolic 123–157; BP diastolic 52–72
[~2022-01-12 04:48] MED LIST changes: +FURO40TA4 PO
[2022-01-12] MEDS ORDERED: pantoprazole IV 80 MG in normal saline 100ml IV soln 100 ML IV ONE (05:15)
[2022-01-12] MEDS ORDERED: pantoprazole 40MG/NS 100ML BAG 100 ML IV ONE (05:15)
[2022-01-12 05:37] LABS: BASOPHILS % (AUTO) 0.1 % (0-1); EOSINOPHILS # (AUTO) 0.1 X10'3 (0-0.9); EOSINOPHILS % (AUTO) 1.7 % (0-6); HEMATOCRIT 25.9 % (35.0-45.0); HEMOGLOBIN 8.4 g/dl (12.0-16.0); LYMPHOCYTES # (AUTO) 0.5 X10'3 (1.1-4.8); LYMPHOCYTES % (AUTO) 6.1 % (21-51); MEAN CORPUSCULAR HEMOGLOBIN 25.5 PG (27.0-31.0); MEAN CORPUSCULAR HGB CONC 32.6 g/dL (33.0-36.5); MEAN CORPUSCULAR VOLUME 78.2 FL (78-98); MEAN PLATELET VOLUME 9.3 FL (7.4-10.4); MONOCYTES # (AUTO) 0.4 X10'3 (0-0.9); MONOCYTES % (AUTO) 5.7 % (2-12); NEUTROPHILS # (AUTO) 6.5 X10'3 (1.8-7.7); NEUTROPHILS % (AUTO) 86.4 % (42-75); PLATELET COUNT 261 X10'3 (140-440); RED BLOOD COUNT 3.31 X10'6 (4.20-5.60); RED CELL DISTRIBUTION WIDTH 20.4 % (11.5-14.5); WHITE BLOOD COUNT 7.5 X10'3 (4.5-11.0)
[2022-01-12 05:46] LABS: ALANINE AMINOTRANSFERASE 24 U/L (12-78); ALBUMIN 3.4 G/DL (3.4-5.0); ALBUMIN/GLOBULIN RATIO 1.4 (1.1-1.5); ANION GAP 10 (8-16); ASPARTATE AMINO TRANSFERASE 26 U/L (10-37); BILIRUBIN,TOTAL 0.9 MG/DL (0.1-1.0); BLOOD UREA NITROGEN 20 MG/DL (7-18); BUN/CREATININE RATIO 21.1 (6.6-38.0); CALCIUM 8.4 MG/DL (8.5-10.1); CHLORIDE 105 MMOL/L (99-107); CREATININE 0.95 MG/DL (0.40-0.90); GLUCOSE 206 MG/DL (70-104); MAGNESIUM 1.8 MG/DL (1.5-2.4); POTASSIUM 4.3 MMOL/L (3.5-5.1); SODIUM 141 MMOL/L (135-145); TOTAL CARBON DIOXIDE 25.9 MMOL/L (24-32); TOTAL PROTEIN 5.9 G/DL (6.4-8.2); eGFR 57 ML/MIN
[2022-01-12 05:47] LABS: ALKALINE PHOSPHATASE 163 IU/L (46-116); LIPASE 78 U/L (73-393)
[2022-01-12 05:53] LABS: APTT 27 SECONDS (22-32)
[2022-01-12] MEDS ORDERED: magnesium 2GM in 50ml NS 50 ML IV PRN (08:25)
[2022-01-12] MEDS ORDERED: potassium Cl 20 mEq SR tablet PO PRN ×2 (08:25)
[2022-01-12] MEDS ORDERED: magnesium Cl slow-release 64mg tablet PO PRN (08:25)
[2022-01-12] MEDS ORDERED: magnesium 4gm in 100ml NS 100 ML IV PRN (08:25)
[2022-01-12] MEDS ORDERED: potassium CL 10mEq/100ml bag 100 ML IV PRN (08:25)
[2022-01-12] MEDS ORDERED: ondansetron/PF 4mg/2ml inj IV PRN (08:25)
[2022-01-12] MEDS: normal saline 1000ml 1,000 ML IV SCH ×2 (09:05→20:37)
[2022-01-12 09:09] LABS: ANISOCYTOSIS 3+; MICROCYTOSIS 1+; PLATELET ESTIMATE NORMAL; POLYCHROMASIA 1+
[2022-01-12 09:12] LABS: HYPOCHROMASIA 1+; TARGET CELLS 1+; TEAR DROP CELLS FEW
[2022-01-12 09:14] LABS: ACANTHOCYTES FEW; BURR CELLS 1+
[2022-01-12 11:51] LABS: OCCULT BLOOD STOOL POSITIVE (Neg)
--- NOTE | 2022-01-12 12:43 | NUR ---
Paged Dr. Guthrie about patient is diabetic with last A1C results. PAGER ID: [phone] MESSAGE: Patient Anurag room 3028 is diabetic. Last A1C 8.2. Can we place patient on a hyper/hypoglycemia protocol. Please advice Felicite [phone]
[2022-01-12] MEDS ORDERED: DEXTROSE 15 GM of carb/4 tabs (each vial/BOTTLE has 4 tablets) PO PRN ×2 (13:15)
[2022-01-12] MEDS ORDERED: dextrose 50%-water 50ml dispensing syringe IV PRN ×2 (13:15)
[2022-01-12] MEDS ORDERED: MESSAGE TO PHARMACY PO ONE (13:15)
[2022-01-12] MEDS ORDERED: glucagon, human recombinant 1mg kit SUBCUT PRN (13:15)
[2022-01-12] MEDS ORDERED: insulin Lispro (HumaLOG) vial - multi-dose SQ SCH (13:15)
--- NOTE | 2022-01-12 14:32 | NUR ---
Noted pt with T2DM, fairly well controlled for age with A1c 8.2%. Pt provided with DM education and RD contact information at previous admit 12/21. No further education planned at this time. Will remain available. Addendum: 01/12/22 at [address] Amended: Links added.
[2022-01-12] MEDS ORDERED: FLUT1AER PO (16:48)
[2022-01-12] MEDS ORDERED: ALBUTEROL INHALER 1 PUFF/90 MCG INHALER IH PRN (18:10)
--- NOTE | 2022-01-12 18:20 | NUR ---
Patient in room PCU 3028. I have received report from TEGAN Dye and had the opportunity to ask questions and assume patient care.
[2022-01-12] MEDS: ipratropium/albuterol 3ml nebule NEB PRN (20:00)
[2022-01-12] MEDS: K and/or MAG REPLACEMENT MC SCH (20:00)
[2022-01-12] MEDS: pantoprazole 40mg Tablet.DR PO SCH (20:21)
[2022-01-12] MEDS: atorvastatin 20mg tablet PO SCH (20:22)
[2022-01-12] MEDS: furosemide 40mg tablet PO SCH (20:22)
[2022-01-12] MEDS: metoprolol tartrate 50mg tablet PO SCH (20:37)
[2022-01-12] MEDS: doxazosin mesylate 2mg tablet PO SCH (20:37)
[2022-01-12] MEDS: insulin glargine (Lantus) pen - multi-dose SQ SCH (21:00)
[2022-01-12] MEDS: amitriptyline 50mg tablet PO SCH (21:43)
[2022-01-13] VITALS (10 sets, daily range): BP systolic 121–172; BP diastolic 51–70
[2022-01-13] MEDS: normal saline 1000ml 1,000 ML IV SCH ×2 (05:17→14:25)
[2022-01-13] MEDS ORDERED: FURO40TA4 PO (06:12)
--- NOTE | 2022-01-13 06:39 | NUR ---
Problems reprioritized. Patient report given, questions answered & plan of care reviewed with TEGAN Dye.
[2022-01-13 07:33] LABS: BASOPHILS % (AUTO) 0.6 % (0-1); EOSINOPHILS # (AUTO) 0.2 X10'3 (0-0.9); EOSINOPHILS % (AUTO) 3.9 % (0-6); HEMATOCRIT 28.7 % (35.0-45.0); HEMOGLOBIN 9.4 g/dl (12.0-16.0); LYMPHOCYTES # (AUTO) 0.6 X10'3 (1.1-4.8); LYMPHOCYTES % (AUTO) 12.3 % (21-51); MEAN CORPUSCULAR HEMOGLOBIN 25.7 PG (27.0-31.0); MEAN CORPUSCULAR HGB CONC 32.8 g/dL (33.0-36.5); MEAN CORPUSCULAR VOLUME 78.5 FL (78-98); MEAN PLATELET VOLUME 9.1 FL (7.4-10.4); MONOCYTES # (AUTO) 0.4 X10'3 (0-0.9); MONOCYTES % (AUTO) 9.5 % (2-12); NEUTROPHILS # (AUTO) 3.4 X10'3 (1.8-7.7); NEUTROPHILS % (AUTO) 73.7 % (42-75); PLATELET COUNT 256 X10'3 (140-440); RED BLOOD COUNT 3.66 X10'6 (4.20-5.60); RED CELL DISTRIBUTION WIDTH 20.3 % (11.5-14.5); WHITE BLOOD COUNT 4.6 X10'3 (4.5-11.0)
[2022-01-13 07:46] LABS: ALBUMIN 3.3 G/DL (3.4-5.0); ANION GAP 9 (8-16); BLOOD UREA NITROGEN 14 MG/DL (7-18); BUN/CREATININE RATIO 15.2 (6.6-38.0); CALCIUM 8.7 MG/DL (8.5-10.1); CHLORIDE 103 MMOL/L (99-107); CHOL/HDL RATIO 1.6 (0.00-4.99); CHOLESTEROL 136 MG/DL (0-200); CREATININE 0.92 MG/DL (0.40-0.90); GLUCOSE 151 MG/DL (70-104); HDL CHOLESTEROL 83 MG/DL (35-60); LDL CHOLESTEROL 38 MG/DL (50-100); POTASSIUM 3.9 MMOL/L (3.5-5.1); SODIUM 143 MMOL/L (135-145); TOTAL CARBON DIOXIDE 30.9 MMOL/L (24-32); TRIGLYCERIDES 77 MG/DL (20-135); eGFR 60 ML/MIN
[2022-01-13] MEDS ORDERED: MESSAGE TO NURSING IM SCH (08:00)
[2022-01-13 08:19] LABS: ANISOCYTOSIS 3+; MICROCYTOSIS 1+; PLATELET ESTIMATE NORMAL
[2022-01-13 08:20] LABS: ELLIPTOCYTES 1+; SCHISTOCYTES FEW
[2022-01-13] MEDS: doxazosin mesylate 2mg tablet PO SCH (08:32)
[2022-01-13] MEDS: calcitriol 0.25mcg capsule PO SCH (08:35)
[2022-01-13] MEDS: metoprolol tartrate 50mg tablet PO SCH (08:35)
[2022-01-13] MEDS: pantoprazole 40mg Tablet.DR PO SCH ×2 (08:36→21:39)
[2022-01-13] MEDS: K and/or MAG REPLACEMENT MC SCH ×2 (08:36→20:00)
[2022-01-13] MEDS ORDERED: COVID-19 VAC, TRIS(PFIZER)/PF 30 MCG/0.3 ML VIAL IMVAC ONE (08:45)
[2022-01-13] MEDS ORDERED: fentaNYL/PF 50MCG/1 ML 2ML syringe ONE (11:32)
[2022-01-13] MEDS ORDERED: MIDAZolam 1 MG/ML 5ML VIAL ONE (11:32)
[2022-01-13] MEDS ORDERED: LIDOcaine Viscous 15ml cup ONE (11:32)
[2022-01-13] MEDS ORDERED: diphenhydrAMINE 50 mg/ml inj ONE (11:34)
--- NOTE | 2022-01-13 12:00 | NUR ---
patient is of the floor. Addendum: 01/13/22 at 1802 by Hardik Lakhani RN Amended: Links added.
[2022-01-13] MEDS ORDERED: PEG 3350/Na sulf,bicarb,Cl/KCl oral sol 4 liter bottle PO ONE (13:15)
[2022-01-13] MEDS: furosemide 40mg tablet PO SCH (14:27)
[2022-01-13] MEDS: ipratropium/albuterol 3ml nebule NEB PRN (15:12)
--- NOTE | 2022-01-13 18:25 | NUR ---
Patient in room PCU 3028. I have received report from TEGAN Dye and had the opportunity to ask questions and assume patient care.
[2022-01-13] MEDS: ipratropium/albuterol 3ml nebule NEB SCH ×2 (19:53→23:00)
[2022-01-13] MEDS: insulin glargine (Lantus) pen - multi-dose SQ SCH (21:00)
[2022-01-13] MEDS: atorvastatin 20mg tablet PO SCH (21:39)
[2022-01-13] MEDS: amitriptyline 50mg tablet PO SCH (21:39)
[2022-01-13] MEDS: acetaminophen 325mg tablet PO PRN (21:49)
[2022-01-14] VITALS (11 sets, daily range): BP systolic 114–148; BP diastolic 47–85
[2022-01-14] MEDS: normal saline 1000ml 1,000 ML IV SCH ×3 (00:50→21:09)
--- NOTE | 2022-01-14 06:29 | NUR ---
Problems reprioritized. Patient report given, questions answered & plan of care reviewed with TEGAN Dye.
[2022-01-14] MEDS: ipratropium/albuterol 3ml nebule NEB SCH ×5 (07:46→23:00)
[2022-01-14] MEDS: K and/or MAG REPLACEMENT MC SCH ×2 (08:00→20:00)
[2022-01-14 08:09] LABS: BASOPHILS % (AUTO) 0.7 % (0-1); EOSINOPHILS # (AUTO) 0.1 X10'3 (0-0.9); EOSINOPHILS % (AUTO) 2.9 % (0-6); HEMATOCRIT 30.7 % (35.0-45.0); HEMOGLOBIN 10.1 g/dl (12.0-16.0); LYMPHOCYTES # (AUTO) 0.4 X10'3 (1.1-4.8); MEAN CORPUSCULAR HEMOGLOBIN 25.7 PG (27.0-31.0); MEAN CORPUSCULAR HGB CONC 32.8 g/dL (33.0-36.5); MEAN CORPUSCULAR VOLUME 78.4 FL (78-98); MEAN PLATELET VOLUME 9.4 FL (7.4-10.4); MONOCYTES # (AUTO) 0.5 X10'3 (0-0.9); NEUTROPHILS # (AUTO) 3.8 X10'3 (1.8-7.7); NEUTROPHILS % (AUTO) 77.4 % (42-75); PLATELET COUNT 261 X10'3 (140-440); RED BLOOD COUNT 3.91 X10'6 (4.20-5.60); RED CELL DISTRIBUTION WIDTH 19.8 % (11.5-14.5); WHITE BLOOD COUNT 4.9 X10'3 (4.5-11.0)
[2022-01-14] MEDS: doxazosin mesylate 2mg tablet PO SCH (08:40)
[2022-01-14] MEDS: pantoprazole 40mg Tablet.DR PO SCH ×2 (08:40→20:00)
[2022-01-14] MEDS: calcitriol 0.25mcg capsule PO SCH (08:41)
[2022-01-14] MEDS: metoprolol tartrate 50mg tablet PO SCH (08:46)
[2022-01-14 08:47] LABS: ALBUMIN 3.2 G/DL (3.4-5.0); ANION GAP 11 (8-16); BLOOD UREA NITROGEN 18 MG/DL (7-18); BUN/CREATININE RATIO 17.3 (6.6-38.0); CALCIUM 8.7 MG/DL (8.5-10.1); CHLORIDE 101 MMOL/L (99-107); CREATININE 1.04 MG/DL (0.40-0.90); GLUCOSE 163 MG/DL (70-104); POTASSIUM 3.7 MMOL/L (3.5-5.1); SODIUM 143 MMOL/L (135-145); TOTAL CARBON DIOXIDE 31.3 MMOL/L (24-32); eGFR 52 ML/MIN
--- NOTE | 2022-01-14 08:47 | NUR ---
Pt states that she will take lasix after procedure- Courtlyn Film Writer
[2022-01-14] MEDS ORDERED: fentaNYL/PF 50MCG/1 ML 2ML syringe ONE (10:38)
[2022-01-14] MEDS ORDERED: diphenhydrAMINE 50 mg/ml inj ONE (10:39)
[2022-01-14] MEDS ORDERED: MIDAZolam 1 MG/ML 5ML VIAL ONE (10:39)
[2022-01-14] MEDS: BREO ELLIPTA PO SCH (12:30)
--- NOTE | 2022-01-14 12:30 | NUR ---
Breo Ellipta inhaler non-administered as pt has not brought it in/medication is unavailable. Also, this med is ordered PO but is an inhaled medication. Order needs to be d/c'd and substituted with pulmicort BID per protocol. Will speak with
[2022-01-14] MEDS: furosemide 40mg tablet PO SCH (14:14)
[2022-01-14] MEDS: insulin glargine (Lantus) pen - multi-dose SQ SCH (21:00)
[2022-01-14] MEDS: atorvastatin 20mg tablet PO SCH (21:09)
[2022-01-14] MEDS: amitriptyline 50mg tablet PO SCH (21:09)
[2022-01-15 02:00] VITALS: BP 129/52
[2022-01-15 06:00] VITALS: BP 157/50
[2022-01-15] MEDS: normal saline 1000ml 1,000 ML IV SCH (06:25)
[2022-01-15 06:30] LABS: BASOPHILS % (AUTO) 0.5 % (0-1); EOSINOPHILS # (AUTO) 0.1 X10'3 (0-0.9); EOSINOPHILS % (AUTO) 2.6 % (0-6); HEMATOCRIT 27.8 % (35.0-45.0); HEMOGLOBIN 9.2 g/dl (12.0-16.0); LYMPHOCYTES # (AUTO) 0.5 X10'3 (1.1-4.8); LYMPHOCYTES % (AUTO) 9.5 % (21-51); MEAN CORPUSCULAR HEMOGLOBIN 25.9 PG (27.0-31.0); MEAN CORPUSCULAR HGB CONC 33.1 g/dL (33.0-36.5); MEAN CORPUSCULAR VOLUME 78.3 FL (78-98); MONOCYTES # (AUTO) 0.6 X10'3 (0-0.9); MONOCYTES % (AUTO) 11.6 % (2-12); NEUTROPHILS # (AUTO) 3.9 X10'3 (1.8-7.7); NEUTROPHILS % (AUTO) 75.8 % (42-75); PLATELET COUNT 239 X10'3 (140-440); RED BLOOD COUNT 3.56 X10'6 (4.20-5.60); WHITE BLOOD COUNT 5.1 X10'3 (4.5-11.0)
[2022-01-15 06:50] LABS: ANION GAP 9 (8-16); BLOOD UREA NITROGEN 15 MG/DL (7-18); BUN/CREATININE RATIO 16.5 (6.6-38.0); CALCIUM 8.1 MG/DL (8.5-10.1); CHLORIDE 101 MMOL/L (99-107); CREATININE 0.91 MG/DL (0.40-0.90); GLUCOSE 125 MG/DL (70-104); POTASSIUM 3.5 MMOL/L (3.5-5.1); SODIUM 140 MMOL/L (135-145); TOTAL CARBON DIOXIDE 29.7 MMOL/L (24-32); eGFR 60 ML/MIN
[2022-01-15] MEDS ORDERED: albuterol 2.5 MG/3 ML nebule NEB PRN (06:50)
[2022-01-15] MEDS ORDERED: albuterol 2.5 MG/3 ML nebule NEB SCH (07:00)
[2022-01-15] MEDS: ipratropium/albuterol 3ml nebule NEB SCH ×2 (07:11→11:22)
[2022-01-15 07:38] LABS: ANISOCYTOSIS 2+; MICROCYTOSIS 1+; PLATELET ESTIMATE NORMAL; POIKILOCYTOSIS 1+
[2022-01-15] MEDS: furosemide 40mg tablet PO SCH (08:00)
[2022-01-15] MEDS: K and/or MAG REPLACEMENT MC SCH (08:00)
[2022-01-15] MEDS: pantoprazole 40mg Tablet.DR PO SCH (08:45)
[2022-01-15] MEDS: calcitriol 0.25mcg capsule PO SCH (08:45)
[2022-01-15] MEDS: doxazosin mesylate 2mg tablet PO SCH (08:45)
[2022-01-15] MEDS: metoprolol tartrate 50mg tablet PO SCH (08:45)
--- NOTE | 2022-01-15 08:50 | NUR ---
Notified Dr. Guthrie patient refused to take furosemide states " I will take it when i go home". Education provided to patient how important to take medication. Patient verbalized understanding. PAGER ID: [phone] MESSAGE: Patient Anurag rm [id number] refused to take her Furosemide. Hardik [phone].
[2022-01-15] MEDS: acetaminophen 325mg tablet PO PRN (08:55)
[2022-01-15] MEDS ORDERED: budesonide 0.5mg/2ml UD nebule IH SCH (09:00)
[2022-01-15 11:00] VITALS: BP 109/59
--- NOTE | 2022-01-15 11:47 | NUR ---
Patient discharged home. Discharge instruction provided to patient and to follow up with PCP in 1 week. Patient verbalized understanding. IV removed. Patient left with all personal belonging.
== END 2022-01-15 11:46 | disposition home or self-care (01) | DRG 377 ==
LOC: ER 04:48 → ED HOLD 08:36 → PCU 3S 11:38
PROVIDERS: ADMIT Internal Medicine; ATTEND Internal Medicine
PROC: 30233N1 Transfusion of Nonautologous Red Blood Cells into Peripheral Vein, Percutaneous Approach (ICD-10-PCS; 2022-01-12)
PROC: 0DB68ZX Excision of Stomach, Via Natural or Artificial Opening Endoscopic, Diagnostic (ICD-10-PCS; 2022-01-13)
PROC: 0DBH8ZX Excision of Cecum, Via Natural or Artificial Opening Endoscopic, Diagnostic (ICD-10-PCS; principal; 2022-01-14)
DX: K92.1 Melena (principal); I21.A1 Myocardial infarction type 2; I13.0 Hypertensive heart and chronic kidney disease with heart failure and stage 1 through stage 4 chronic kidney disease, or unspecified chronic kidney disease; I50.32 Chronic diastolic (congestive) heart failure; Z68.42 Body mass index [BMI] 45.0-49.9, adult; D50.0 Iron deficiency anemia secondary to blood loss (chronic); E11.22 Type 2 diabetes mellitus with diabetic chronic kidney disease; F41.9 Anxiety disorder, unspecified; K63.5 Polyp of colon; K21.9 Gastro-esophageal reflux disease without esophagitis; E66.9 Obesity, unspecified; E78.5 Hyperlipidemia, unspecified; K44.9 Diaphragmatic hernia without obstruction or gangrene; K29.70 Gastritis, unspecified, without bleeding; Z60.2 Problems related to living alone; I50.82 Biventricular heart failure; J44.9 Chronic obstructive pulmonary disease, unspecified; N18.9 Chronic kidney disease, unspecified; Z79.4 Long term (current) use of insulin; Z83.3 Family history of diabetes mellitus; Z95.0 Presence of cardiac pacemaker; Z99.81 Dependence on supplemental oxygen; Z88.0 Allergy status to penicillin; Z88.2 Allergy status to sulfonamides; Z88.5 Allergy status to narcotic agent; Z88.8 Allergy status to other drugs, medicaments and biological substances
CPT/HCPCS: 36415; 36430; 43239; 45385; 71045; 80048; 80053; 80061; 82272; 82948; 83690; 83735; 84132; 84484; 85008; 85025; 85610; 85730; 86885; 86900; 86901; 86920; 87081; 88305; 93005; 94640; 94760; 96365; 96367; 99152; 99153; 99291; A4620; C1773; C9113; G0378; J1200; J1815; J2250; J3010; J3490; J7030; J7040; P9016

== ENCOUNTER 2022-09-20 10:33 | Outpatient (CLI) | payer MEDICARE, BC, MEDICAID ==
[2022-09-19 09:56] LABS: ALBUMIN 3.5 G/DL (3.4-5.0); ANION GAP 5 (8-16); BLOOD UREA NITROGEN 19 MG/DL (7-18); BUN/CREATININE RATIO 21.6 (6.6-38.0); CALCIUM 9.1 MG/DL (8.5-10.1); CHLORIDE 102 MMOL/L (99-107); CREATININE 0.88 MG/DL (0.40-0.90); POTASSIUM 4.2 MMOL/L (3.5-5.1); SODIUM 138 MMOL/L (135-145); TOTAL CARBON DIOXIDE 31.4 MMOL/L (24-32); eGFR 62 ML/MIN
[2022-09-19 09:59] LABS: GLUCOSE 219 MG/DL (70-104)
[~2022-09-20 10:33] MED LIST changes: +ACET-1025 PO; -ALBU8.5H17 IH; -CALC0.5C2 PO; +FURO-150 PO; -FURO40TA4 PO; +LOP25T PO; -METO50TA16 PO
[2022-09-20] MEDS ORDERED: iohexol 350MG/ML 100ml bottle IV ONE (10:58)
== END 2022-09-20 23:59 | disposition home or self-care (01) ==
LOC: RAD 10:33
PROVIDERS: ATTEND Internal Medicine Cardiovascular Disease
DX: I08.0 Rheumatic disorders of both mitral and aortic valves (principal); I48.0 Paroxysmal atrial fibrillation; I70.0 Atherosclerosis of aorta; Z95.0 Presence of cardiac pacemaker
CPT/HCPCS: 36415; 75574; 80048; J3490; Q9967

== ENCOUNTER 2023-03-29 10:53 | Day surgery (SDC) | payer MEDICARE, BC, MEDICAID ==
[~2023-03-29] VITALS: Ht 162.6 cm; Wt 131.5 kg
[~2023-03-29 10:53] MED LIST changes: -AMIT-189 PO; +AMIT-286 PO
[2023-03-29 11:45] VITALS: BP 137/90
[2023-03-29] MEDS ORDERED: LIDOcaine 1%/PF 5ML 10 MG/ML VIAL SQ ONE (12:00)
[2023-03-29 12:15] VITALS: BP 187/77
[2023-03-29 12:25] VITALS: BP 182/82
[2023-03-29 12:40] VITALS: BP 144/88
== END 2023-03-29 12:55 | disposition home or self-care (01) ==
LOC: SSTAY O 10:53
PROVIDERS: ATTEND Family Medicine
DX: E04.1 Nontoxic single thyroid nodule (principal); Z88.2 Allergy status to sulfonamides; Z88.8 Allergy status to other drugs, medicaments and biological substances; Z88.5 Allergy status to narcotic agent
CPT/HCPCS: 10005; J3490; 88173; 88305

== ENCOUNTER 2023-05-19 13:36 | Inpatient (IN) | payer MEDICARE, BC, MEDICAID ==
[~2023-05-19] VITALS: Ht 157.5 cm; Wt 129.1 kg
[~2023-05-19 13:36] MED LIST changes: -FURO-150 PO
[2023-05-19 15:05] LABS: BASOPHILS % (AUTO) 0.4 % (0-1); EOSINOPHILS # (AUTO) 0.1 X10'3 (0-0.9); EOSINOPHILS % (AUTO) 1.5 % (0-6); HEMATOCRIT 33.9 % (35.0-45.0); LYMPHOCYTES # (AUTO) 0.6 X10'3 (1.1-4.8); LYMPHOCYTES % (AUTO) 7.8 % (21-51); MEAN CORPUSCULAR HGB CONC 32.5 g/dL (33.0-36.5); MEAN CORPUSCULAR VOLUME 86.2 FL (78-98); MEAN PLATELET VOLUME 9.3 FL (7.4-10.4); MONOCYTES # (AUTO) 0.5 X10'3 (0-0.9); MONOCYTES % (AUTO) 6.8 % (2-12); NEUTROPHILS # (AUTO) 6.2 X10'3 (1.8-7.7); NEUTROPHILS % (AUTO) 83.5 % (42-75); PLATELET COUNT 199 X10'3 (140-440); RED BLOOD COUNT 3.93 X10'6 (4.20-5.60); WHITE BLOOD COUNT 7.5 X10'3 (4.5-11.0)
[2023-05-19 15:11] LABS: APTT 28 SECONDS (22-32); PROTHROMBIN TIME 10.5 SECONDS (9.0-12.0)
[2023-05-19 15:23] LABS: ALANINE AMINOTRANSFERASE 25 U/L (12-78); ALBUMIN 3.5 G/DL (3.4-5.0); ALBUMIN/GLOBULIN RATIO 1.1 (1.1-1.5); ALKALINE PHOSPHATASE 179 IU/L (46-116); ANION GAP 7 (8-16); ASPARTATE AMINO TRANSFERASE 21 U/L (10-37); BILIRUBIN,TOTAL 0.8 MG/DL (0.1-1.0); BLOOD UREA NITROGEN 23 MG/DL (7-18); BUN/CREATININE RATIO 22.8 (10.0-20.0); CALCIUM 8.9 MG/DL (8.5-10.1); CHLORIDE 101 MMOL/L (99-107); CREATININE 1.01 MG/DL (0.40-0.90); GLUCOSE 193 MG/DL (70-104); POTASSIUM 4.1 MMOL/L (3.5-5.1); SODIUM 138 MMOL/L (135-145); TOTAL CARBON DIOXIDE 29.8 MMOL/L (24-32); TOTAL PROTEIN 6.7 G/DL (6.4-8.2); eCRCL 37 ML/MIN; eGFR 53 ML/MIN
--- NOTE | 2023-05-19 16:00 | NUR ---
Received VO per Dr. Bennett for reddy cath placement. Reddy placed, pt tolerated well
[2023-05-19] MEDS ORDERED: iohexol 350MG/ML 100ml bottle IV ONE (16:15)
[2023-05-19] MEDS ORDERED: magnesium Cl slow-release 64mg tablet PO PRN (17:10)
[2023-05-19] MEDS ORDERED: magnesium 4gm in 100ml NS 100 ML IV PRN (17:10)
[2023-05-19] MEDS ORDERED: acetaminophen 325mg tablet PO PRN ×2 (17:10)
[2023-05-19] MEDS ORDERED: magnesium 2GM in 50ml NS 50 ML IV PRN (17:10)
[2023-05-19] MEDS ORDERED: potassium Cl 20 mEq SR tablet PO PRN ×2 (17:10)
[2023-05-19] MEDS ORDERED: ondansetron/PF 4mg/2ml inj IV PRN (17:10)
[2023-05-19] MEDS ORDERED: potassium Cl 40MEQ/1/2NS 520ml 520 ML IV PRN (17:10)
[2023-05-19 17:40] LABS: BILIRUBIN,URINE NEGATIVE (Neg); CLARITY,URINE CLEAR (Clear); COLOR,URINE YELLOW (Yellow); GLUCOSE, URINE 250 mg/dl (Neg); KETONES,URINE NEGATIVE (Neg); LEUKOCYTE ESTERASE ,URINE NEGATIVE (Neg); NITRITES, URINE NEGATIVE (Neg); OCCULT BLOOD,URINE NEGATIVE (Neg); PH,URINE 7.5 (4.8-8.0); PROTEIN,URINE 100 mg/dl (Neg); UROBILINOGEN,URINE 0.2 E.U/dL (0.2-1.0)
[2023-05-19 17:49] LABS: UA COLLECTION TYPE NON-SPECIFIED
[2023-05-19 17:50] LABS: MUCUS STRANDS FEW /LPF (Neg); SQUAMOUS EPITHELIAL CELL,UR FEW /LPF (FEW)
[2023-05-19 17:51] LABS: BACTERIA,URINE FEW /HPF (Neg); RBC,URINE 0-2 /HPF (0-2); WBC,URINE 0-4 /HPF (0-4)
--- NOTE | 2023-05-19 19:00 | NUR ---
Patient in room ORTHO 4010. I have received report from TEGAN Pearce and had the opportunity to ask questions and assume patient care.
[2023-05-19] MEDS ORDERED: glucagon, human recombinant 1mg kit SUBCUT PRN (19:05)
[2023-05-19] MEDS ORDERED: DEXTROSE 15 GM of carb/4 tabs (each vial/BOTTLE has 4 tablets) PO PRN ×2 (19:05)
[2023-05-19] MEDS ORDERED: MESSAGE TO PHARMACY PO ONE (19:05)
[2023-05-19] MEDS ORDERED: dextrose 50%-water 50ml dispensing syringe IV PRN ×2 (19:05)
--- NOTE | 2023-05-19 19:05 | NUR ---
Report givent ot RN Isatu, pt going to bed [id number]
[2023-05-19 19:30] VITALS: BP 112/56; PULSE 58; RESP 20; TEMP 97.7; O2SAT 98
[2023-05-19] MEDS: normal saline 1000ml 1,000 ML IV SCH (19:58)
[2023-05-19 20:00] VITALS: BP 122/55; PULSE 68; RESP 20; O2SAT 95
[2023-05-19 20:37] LABS: COVID19 ANTIGEN BINAX NEGATIVE (NEGATIVE)
[2023-05-19] MEDS: insulin glargine (Lantus) pen - multi-dose SQ SCH (21:35)
[2023-05-19] MEDS ORDERED: ALBU2.5V10 NEB (21:50)
[2023-05-19 22:00] VITALS: BP 153/45; PULSE 68; RESP 17; TEMP 97.8; O2SAT 97
[2023-05-19 22:19] VITALS: PULSE 62; RESP 16; O2SAT 98
[2023-05-20] VITALS (17 sets, daily range): BP systolic 109–155; BP diastolic 31–56; PULSE 61–73; RESP 16–20; TEMP 96.8–99.7; O2SAT 94–98
[2023-05-20] MEDS: ipratropium/albuterol 3ml nebule NEB SCH ×4 (02:26→20:41)
[2023-05-20 05:37] LABS: EOSINOPHILS # (AUTO) 0.1 X10'3 (0-0.9)
[2023-05-20 05:38] LABS: BASOPHILS % (AUTO) 0.3 % (0-1); EOSINOPHILS % (AUTO) 1.7 % (0-6); HEMATOCRIT 31.4 % (35.0-45.0); HEMOGLOBIN 10.4 g/dl (12.0-16.0); LYMPHOCYTES % (AUTO) 12.9 % (21-51); MEAN CORPUSCULAR HEMOGLOBIN 28.2 PG (27.0-31.0); MEAN CORPUSCULAR VOLUME 85.7 FL (78-98); MONOCYTES # (AUTO) 0.7 X10'3 (0-0.9); MONOCYTES % (AUTO) 8.4 % (2-12); NEUTROPHILS # (AUTO) 6.1 X10'3 (1.8-7.7); NEUTROPHILS % (AUTO) 76.7 % (42-75); PLATELET COUNT 176 X10'3 (140-440); RED BLOOD COUNT 3.67 X10'6 (4.20-5.60)
[2023-05-20 06:04] LABS: ALANINE AMINOTRANSFERASE 18 U/L (12-78); ALBUMIN/GLOBULIN RATIO 1.1 (1.1-1.5); ALKALINE PHOSPHATASE 149 IU/L (46-116); ANION GAP 9 (8-16); ASPARTATE AMINO TRANSFERASE 21 U/L (10-37); BILIRUBIN,TOTAL 0.8 MG/DL (0.1-1.0); BLOOD UREA NITROGEN 16 MG/DL (7-18); BUN/CREATININE RATIO 17.8 (10.0-20.0); CALCIUM 8.6 MG/DL (8.5-10.1); CHLORIDE 102 MMOL/L (99-107); GLUCOSE 149 MG/DL (70-104); POTASSIUM 3.8 MMOL/L (3.5-5.1); SODIUM 139 MMOL/L (135-145); TOTAL CARBON DIOXIDE 28.3 MMOL/L (24-32); TOTAL PROTEIN 5.8 G/DL (6.4-8.2); eCRCL 42 ML/MIN; eGFR 61 ML/MIN
[2023-05-20 06:15] LABS: HEMOGLOBIN A1C 9.6 % (4.5-6.2)
--- NOTE | 2023-05-20 06:44 | NUR ---
Problems reprioritized. Patient report given, questions answered & plan of care reviewed with TEGAN SETH.
[2023-05-20] MEDS: normal saline 1000ml 1,000 ML IV SCH ×2 (07:23)
[2023-05-20] MEDS ORDERED: albuterol 2.5 MG/3 ML nebule NEB SCH (08:00)
[2023-05-20] MEDS: doxazosin mesylate 2mg tablet PO SCH (08:00)
[2023-05-20] MEDS: budesonide 0.5mg/2ml UD nebule IH SCH ×2 (08:26→20:41)
--- NOTE | 2023-05-20 10:00 | NUR ---
Son called and was updated.
[2023-05-20] MEDS: metoprolol tartrate 25mg tablet PO SCH (10:34)
[2023-05-20] MEDS: pantoprazole 40mg Tablet.DR PO SCH ×2 (10:34→21:02)
[2023-05-20] MEDS: atorvastatin 20mg tablet PO SCH ×2 (10:34→21:02)
[2023-05-20] MEDS: enoxaparin 40mg/0.4ml syringe SQ SCH (10:35)
[2023-05-20] MEDS: acetaminophen 325mg tablet PO SCH (10:35)
[2023-05-20] MEDS: clopidogrel 75mg tablet PO SCH (10:40)
--- NOTE | 2023-05-20 11:23 | NUR ---
DM Consult: Pt admit for possible stroke w/ ALOC hx DM A1C 9.6% takes Lantus 15 units HS and Humalog 30 units TIDWM as well as 10 units HS per EMR. Pt w/ intermittent confusion and POLST DNR w/ comfort care per MD note. Pt currently DNR pending WATCH PARTS GRINDER BSS currently on heart healthy/carb controlled diet per EMR. Given confusion and POLST DM ed deferred at this time. Addendum: 05/20/23 at [address] Amended: Links added.
--- NOTE | 2023-05-20 11:39 | NUR ---
PAGER ID: [phone] MESSAGE: Jesusita Osborn [id number] Pt. refuses to take any blood thinners in future. A&Ox4 unaware of CT results or why she is in here other than she had an ALOC. Please discuss with pt. states dizziness while standing. georges Rossi. Britta [phone]
--- NOTE | 2023-05-20 12:55 | NUR ---
Per MD CT CHest not to be done until tomorrow r/t getting contrast yesterday. CT aware.
--- NOTE | 2023-05-20 18:20 | NUR ---
Gave report to Teresa JAVED.
[2023-05-20] MEDS: insulin Lispro (HumaLOG) vial - multi-dose SQ SCH (18:59)
[2023-05-20] MEDS: insulin glargine (Lantus) pen - multi-dose SQ SCH (21:05)
[2023-05-21] VITALS (16 sets, daily range): BP systolic 144–161; BP diastolic 38–79; PULSE 61–73; RESP 15–20; TEMP 97.2–98.9; O2SAT 94–98
[2023-05-21] MEDS: ipratropium/albuterol 3ml nebule NEB SCH ×4 (03:10→20:51)
[2023-05-21 06:22] LABS: BASOPHILS % (AUTO) 0.6 % (0-1); EOSINOPHILS # (AUTO) 0.1 X10'3 (0-0.9); EOSINOPHILS % (AUTO) 1.9 % (0-6); HEMATOCRIT 30.2 % (35.0-45.0); HEMOGLOBIN 9.9 g/dl (12.0-16.0); LYMPHOCYTES # (AUTO) 0.6 X10'3 (1.1-4.8); LYMPHOCYTES % (AUTO) 10.3 % (21-51); MEAN CORPUSCULAR HEMOGLOBIN 28.1 PG (27.0-31.0); MEAN CORPUSCULAR HGB CONC 32.6 g/dL (33.0-36.5); MEAN CORPUSCULAR VOLUME 86.3 FL (78-98); MEAN PLATELET VOLUME 9.7 FL (7.4-10.4); MONOCYTES # (AUTO) 0.5 X10'3 (0-0.9); MONOCYTES % (AUTO) 9.1 % (2-12); NEUTROPHILS # (AUTO) 4.5 X10'3 (1.8-7.7); NEUTROPHILS % (AUTO) 78.1 % (42-75); PLATELET COUNT 160 X10'3 (140-440); RED CELL DISTRIBUTION WIDTH 17.9 % (11.5-14.5); WHITE BLOOD COUNT 5.7 X10'3 (4.5-11.0)
[2023-05-21 06:39] LABS: ALANINE AMINOTRANSFERASE 15 U/L (12-78); ALBUMIN 2.8 G/DL (3.4-5.0); ALKALINE PHOSPHATASE 139 IU/L (46-116); ANION GAP 10 (8-16); ASPARTATE AMINO TRANSFERASE 20 U/L (10-37); BILIRUBIN,TOTAL 0.7 MG/DL (0.1-1.0); BLOOD UREA NITROGEN 20 MG/DL (7-18); BUN/CREATININE RATIO 22.5 (10.0-20.0); CALCIUM 8.5 MG/DL (8.5-10.1); CHLORIDE 104 MMOL/L (99-107); CREATININE 0.89 MG/DL (0.40-0.90); GLUCOSE 156 MG/DL (70-104); POTASSIUM 3.8 MMOL/L (3.5-5.1); SODIUM 140 MMOL/L (135-145); TOTAL CARBON DIOXIDE 25.6 MMOL/L (24-32); TOTAL PROTEIN 5.5 G/DL (6.4-8.2); eCRCL 43 ML/MIN; eGFR 62 ML/MIN
--- NOTE | 2023-05-21 06:51 | NUR ---
Problems reprioritized. Patient report given, questions answered & plan of care reviewed with peter Callejas.
[2023-05-21] MEDS ORDERED: iohexol 300mg/ml 100ml inj. ONE (07:39)
[2023-05-21] MEDS: budesonide 0.5mg/2ml UD nebule IH SCH ×2 (09:56→20:51)
[2023-05-21] MEDS: atorvastatin 20mg tablet PO SCH ×2 (10:20→20:39)
[2023-05-21] MEDS: acetaminophen 325mg tablet PO SCH (10:20)
[2023-05-21] MEDS: clopidogrel 75mg tablet PO SCH (10:21)
[2023-05-21] MEDS: metoprolol tartrate 25mg tablet PO SCH (10:21)
[2023-05-21] MEDS: pantoprazole 40mg Tablet.DR PO SCH ×2 (10:21→20:39)
[2023-05-21] MEDS: doxazosin mesylate 2mg tablet PO SCH ×3 (10:21→20:59)
[2023-05-21] MEDS: enoxaparin 40mg/0.4ml syringe SQ SCH (10:22)
[2023-05-21 11:27] LABS: FREE T4 (FREE THYROXINE) 1.24 NG/DL (0.73-1.40); THYROID STIMULATING HORMONE 1.06 ulU/ml (0.34-4.50)
--- NOTE | 2023-05-21 11:29 | NUR ---
PAGER ID: [phone] MESSAGE: Jesusita Osborn [id number]. Did you want pt. to continue to get IV fluids? EF 50. Thanks silvestre [phone]
[2023-05-21] MEDS: insulin Lispro (HumaLOG) vial - multi-dose SQ SCH ×2 (13:42→18:44)
[2023-05-21] MEDS: normal saline 1000ml 1,000 ML IV SCH (13:46)
--- NOTE | 2023-05-21 15:17 | NUR ---
Pacer compatible with MRI however rep needs to be called to reprogram pacer. technical internship to contact rep. Isidro Thomas [phone]. Rep on his way from [place]. Available after 6 pm. Will notify hospitalist.
--- NOTE | 2023-05-21 15:25 | NUR ---
PAGER ID: [phone] MESSAGE: Jesusita Osborn [id number] Please see notes in pt. charts regarding MRI and pacer. Thank you Britta [phone]
--- NOTE | 2023-05-21 18:20 | NUR ---
GAVE REPORT TO MEGAN JAVED.
[2023-05-21] MEDS: insulin glargine (Lantus) pen - multi-dose SQ SCH (20:42)
[2023-05-22] VITALS (15 sets, daily range): BP systolic 118–146; BP diastolic 24–50; PULSE 59–91; RESP 16–18; TEMP 97.7–98.5; O2SAT 91–98
[2023-05-22] MEDS: ipratropium/albuterol 3ml nebule NEB SCH ×4 (02:40→20:29)
--- NOTE | 2023-05-22 06:38 | NUR ---
Problems reprioritized. Patient report given, questions answered & plan of care reviewed with TEGAN SETH.
[2023-05-22 07:00] LABS: BASOPHILS % (AUTO) 0.3 % (0-1); EOSINOPHILS # (AUTO) 0.2 X10'3 (0-0.9); EOSINOPHILS % (AUTO) 2.9 % (0-6); HEMATOCRIT 29.6 % (35.0-45.0); HEMOGLOBIN 9.7 g/dl (12.0-16.0); LYMPHOCYTES # (AUTO) 0.5 X10'3 (1.1-4.8); LYMPHOCYTES % (AUTO) 9.4 % (21-51); MEAN CORPUSCULAR HEMOGLOBIN 28.2 PG (27.0-31.0); MEAN CORPUSCULAR HGB CONC 32.8 g/dL (33.0-36.5); MEAN PLATELET VOLUME 9.8 FL (7.4-10.4); MONOCYTES # (AUTO) 0.5 X10'3 (0-0.9); MONOCYTES % (AUTO) 9.1 % (2-12); NEUTROPHILS # (AUTO) 4.3 X10'3 (1.8-7.7); NEUTROPHILS % (AUTO) 78.3 % (42-75); PLATELET COUNT 160 X10'3 (140-440); RED BLOOD COUNT 3.45 X10'6 (4.20-5.60); RED CELL DISTRIBUTION WIDTH 18.2 % (11.5-14.5); WHITE BLOOD COUNT 5.5 X10'3 (4.5-11.0)
[2023-05-22 07:04] LABS: ALANINE AMINOTRANSFERASE 18 U/L (12-78); ALBUMIN 2.7 G/DL (3.4-5.0); ALKALINE PHOSPHATASE 135 IU/L (46-116); ANION GAP 12 (8-16); ASPARTATE AMINO TRANSFERASE 20 U/L (10-37); BILIRUBIN,TOTAL 0.7 MG/DL (0.1-1.0); BLOOD UREA NITROGEN 15 MG/DL (7-18); BUN/CREATININE RATIO 17.9 (10.0-20.0); CALCIUM 8.5 MG/DL (8.5-10.1); CHLORIDE 104 MMOL/L (99-107); CREATININE 0.84 MG/DL (0.40-0.90); GLUCOSE 148 MG/DL (70-104); POTASSIUM 3.6 MMOL/L (3.5-5.1); SODIUM 140 MMOL/L (135-145); TOTAL CARBON DIOXIDE 24.5 MMOL/L (24-32); TOTAL PROTEIN 5.4 G/DL (6.4-8.2); eCRCL 45 ML/MIN; eGFR 66 ML/MIN
[2023-05-22] MEDS: budesonide 0.5mg/2ml UD nebule IH SCH ×2 (07:36→20:29)
[2023-05-22] MEDS: clopidogrel 75mg tablet PO SCH (09:09)
[2023-05-22] MEDS: pantoprazole 40mg Tablet.DR PO SCH ×2 (09:09→21:00)
[2023-05-22] MEDS: atorvastatin 20mg tablet PO SCH ×2 (09:09→21:00)
[2023-05-22] MEDS: acetaminophen 325mg tablet PO SCH (09:10)
[2023-05-22] MEDS: enoxaparin 40mg/0.4ml syringe SQ SCH (09:10)
[2023-05-22] MEDS: metoprolol tartrate 25mg tablet PO SCH (09:10)
[2023-05-22] MEDS: insulin Lispro (HumaLOG) vial - multi-dose SQ SCH ×4 (09:14→21:00)
[2023-05-22] MEDS: normal saline 1000ml 1,000 ML IV SCH ×2 (16:35→17:35)
--- NOTE | 2023-05-22 18:11 | NUR ---
gAVE REPORT TO MEGAN JAVED
--- NOTE | 2023-05-22 18:39 | NUR ---
Patient in room ORTHO 4010. I have received report from TEGAN SETH and had the opportunity to ask questions and assume patient care.
[2023-05-22] MEDS: insulin glargine (Lantus) pen - multi-dose SQ SCH (21:00)
[2023-05-22] MEDS: doxazosin mesylate 2mg tablet PO SCH (21:00)
[2023-05-23] VITALS (7 sets, daily range): BP systolic 128–144; BP diastolic 52–54; PULSE 56–72; RESP 15–18; TEMP 98.1–98.2; O2SAT 92–100
[2023-05-23] MEDS: ipratropium/albuterol 3ml nebule NEB SCH ×2 (02:22→07:16)
[2023-05-23 06:06] LABS: BASOPHILS % (AUTO) 0.4 % (0-1); EOSINOPHILS # (AUTO) 0.2 X10'3 (0-0.9); EOSINOPHILS % (AUTO) 3.4 % (0-6); HEMATOCRIT 30.7 % (35.0-45.0); HEMOGLOBIN 10.3 g/dl (12.0-16.0); LYMPHOCYTES # (AUTO) 0.5 X10'3 (1.1-4.8); LYMPHOCYTES % (AUTO) 8.7 % (21-51); MEAN CORPUSCULAR HEMOGLOBIN 28.8 PG (27.0-31.0); MEAN CORPUSCULAR HGB CONC 33.5 g/dL (33.0-36.5); MEAN PLATELET VOLUME 9.4 FL (7.4-10.4); MONOCYTES # (AUTO) 0.5 X10'3 (0-0.9); MONOCYTES % (AUTO) 9.1 % (2-12); NEUTROPHILS # (AUTO) 4.7 X10'3 (1.8-7.7); NEUTROPHILS % (AUTO) 78.4 % (42-75); PLATELET COUNT 162 X10'3 (140-440); RED BLOOD COUNT 3.56 X10'6 (4.20-5.60); RED CELL DISTRIBUTION WIDTH 18.3 % (11.5-14.5)
[2023-05-23 06:10] LABS: ALANINE AMINOTRANSFERASE 21 U/L (12-78); ALBUMIN 2.8 G/DL (3.4-5.0); ALKALINE PHOSPHATASE 136 IU/L (46-116); ANION GAP 8 (8-16); ASPARTATE AMINO TRANSFERASE 21 U/L (10-37); BILIRUBIN,TOTAL 0.7 MG/DL (0.1-1.0); BLOOD UREA NITROGEN 15 MG/DL (7-18); BUN/CREATININE RATIO 16.1 (10.0-20.0); CALCIUM 8.5 MG/DL (8.5-10.1); CHLORIDE 105 MMOL/L (99-107); CREATININE 0.93 MG/DL (0.40-0.90); GLUCOSE 154 MG/DL (70-104); SODIUM 141 MMOL/L (135-145); TOTAL CARBON DIOXIDE 27.6 MMOL/L (24-32); TOTAL PROTEIN 5.5 G/DL (6.4-8.2); eCRCL 41 ML/MIN; eGFR 59 ML/MIN
--- NOTE | 2023-05-23 06:19 | NUR ---
Problems reprioritized. Patient report given, questions answered & plan of care reviewed with peter Fernandez.
[2023-05-23] MEDS: budesonide 0.5mg/2ml UD nebule IH SCH (07:16)
[2023-05-23] MEDS: acetaminophen 325mg tablet PO SCH (07:32)
[2023-05-23] MEDS: clopidogrel 75mg tablet PO SCH (07:32)
[2023-05-23] MEDS: atorvastatin 20mg tablet PO SCH (07:32)
[2023-05-23] MEDS: pantoprazole 40mg Tablet.DR PO SCH (07:32)
[2023-05-23] MEDS: metoprolol tartrate 25mg tablet PO SCH (07:37)
[2023-05-23] MEDS: enoxaparin 40mg/0.4ml syringe SQ SCH (07:39)
[2023-05-23] MEDS: insulin Lispro (HumaLOG) vial - multi-dose SQ SCH ×2 (09:01→14:23)
[2023-05-23] MEDS ORDERED: CLOP75TA34 PO ×2 (12:51)
[2023-07-06] MEDS ORDERED: ASPI81TA52 PO (02:16)
== END 2023-05-23 14:02 | disposition home health service (06) | DRG 64 ==
LOC: ER 13:37 → ED HOLD 17:07 → EDBEDREQ 17:53 → ORTHO 4S 19:20
PROVIDERS: ADMIT Internal Medicine; ATTEND Family Medicine
PROC: B3251ZZ Computerized Tomography (CT Scan) of Bilateral Common Carotid Arteries using Low Osmolar Contrast (ICD-10-PCS; principal; 2023-05-19)
PROC: B32G1ZZ Computerized Tomography (CT Scan) of Bilateral Vertebral Arteries using Low Osmolar Contrast (ICD-10-PCS; 2023-05-19)
PROC: B32R1ZZ Computerized Tomography (CT Scan) of Intracranial Arteries using Low Osmolar Contrast (ICD-10-PCS; 2023-05-19)
PROC: B3281ZZ Computerized Tomography (CT Scan) of Bilateral Internal Carotid Arteries using Low Osmolar Contrast (ICD-10-PCS; 2023-05-19)
PROC: BW241ZZ Computerized Tomography (CT Scan) of Chest and Abdomen using Low Osmolar Contrast (ICD-10-PCS; 2023-05-21)
DX: I63.9 Cerebral infarction, unspecified (principal); G93.41 Metabolic encephalopathy; Z68.43 Body mass index [BMI] 50.0-59.9, adult; E11.65 Type 2 diabetes mellitus with hyperglycemia; I95.1 Orthostatic hypotension; Z66 Do not resuscitate; Z51.5 Encounter for palliative care; E66.01 Morbid (severe) obesity due to excess calories; Z20.822 Contact with and (suspected) exposure to COVID-19; E04.9 Nontoxic goiter, unspecified; Z60.2 Problems related to living alone; I48.91 Unspecified atrial fibrillation; I50.9 Heart failure, unspecified; F41.9 Anxiety disorder, unspecified; Z82.49 Family history of ischemic heart disease and other diseases of the circulatory system; Z88.2 Allergy status to sulfonamides; Z88.5 Allergy status to narcotic agent; Z88.8 Allergy status to other drugs, medicaments and biological substances; Z86.73 Personal history of transient ischemic attack (TIA), and cerebral infarction without residual deficits; Z84.89 Family history of other specified conditions; Z79.899 Other long term (current) drug therapy; Z79.4 Long term (current) use of insulin; Z83.3 Family history of diabetes mellitus; Z95.0 Presence of cardiac pacemaker; Z79.02 Long term (current) use of antithrombotics/antiplatelets
CPT/HCPCS: 36415; 70450; 70496; 70498; 71045; 71260; 80053; 81001; 82948; 83036; 83605; 84439; 84443; 85025; 85610; 85730; 87040; 87077; 87081; 87811; 92508; 92616; 93005; 93306; 94640; 94760; 97110; 97116; 97161; 97530; 99285; A4314; A4615; A6258; A6449; G0378; J1650; J1815; J3490; J7030; J7040; Q9967

== ENCOUNTER 2023-05-25 09:46 | Emergency (ER) | payer MEDICARE, BC, MEDICAID ==
[~2023-05-25] VITALS: Ht 162.6 cm; Wt 127.3 kg
[~2023-05-25 09:46] MED LIST changes: +ALBU2.5V10 NEB; +CLOP75TA34 PO
[2023-05-25 10:30] LABS: BASOPHILS % (AUTO) 0.4 % (0-1); EOSINOPHILS # (AUTO) 0.4 X10'3 (0-0.9); EOSINOPHILS % (AUTO) 3.8 % (0-6); HEMATOCRIT 35.4 % (35.0-45.0); LYMPHOCYTES # (AUTO) 0.5 X10'3 (1.1-4.8); MEAN CORPUSCULAR HEMOGLOBIN 27.4 PG (27.0-31.0); MEAN CORPUSCULAR VOLUME 88.5 FL (78-98); MEAN PLATELET VOLUME 9.5 FL (7.4-10.4); MONOCYTES # (AUTO) 0.6 X10'3 (0-0.9); MONOCYTES % (AUTO) 6.1 % (2-12); NEUTROPHILS # (AUTO) 8.3 X10'3 (1.8-7.7); NEUTROPHILS % (AUTO) 84.7 % (42-75); PLATELET COUNT 188 X10'3 (140-440); RED CELL DISTRIBUTION WIDTH 18.7 % (11.5-14.5); WHITE BLOOD COUNT 9.8 X10'3 (4.5-11.0)
[2023-05-25 10:37] LABS: CLARITY,URINE BLOODY (Clear); COLOR,URINE RED (Yellow); UA COLLECTION TYPE CLN CATCH MIDSTREAM
[2023-05-25 10:42] LABS: BACTERIA,URINE 1+ /HPF (Neg); MUCUS STRANDS NONE SEEN /LPF (Neg); RBC,URINE TNTC /HPF (0-2); SQUAMOUS EPITHELIAL CELL,UR FEW /LPF (FEW); WBC CLUMPS,URINE MODERATE /HPF (NEGATIVE); WBC,URINE TNTC /HPF (0-4)
[2023-05-25 10:54] LABS: PLATELET ESTIMATE NORMAL
[2023-05-25 10:55] LABS: ANISOCYTOSIS 2+; BURR CELLS 2+; ELLIPTOCYTES 1+; SCHISTOCYTES FEW
[2023-05-25 11:32] LABS: ALANINE AMINOTRANSFERASE 31 U/L (12-78); ALBUMIN 3.3 G/DL (3.4-5.0); ALKALINE PHOSPHATASE 151 IU/L (46-116); ANION GAP 11 (8-16); ASPARTATE AMINO TRANSFERASE 38 U/L (10-37); BILIRUBIN,TOTAL 0.8 MG/DL (0.1-1.0); BLOOD UREA NITROGEN 19 MG/DL (7-18); CALCIUM 9.1 MG/DL (8.5-10.1); CHLORIDE 103 MMOL/L (99-107); GLUCOSE 168 MG/DL (70-104); POTASSIUM 4.3 MMOL/L (3.5-5.1); SODIUM 139 MMOL/L (135-145); TOTAL CARBON DIOXIDE 24.9 MMOL/L (24-32); TOTAL PROTEIN 6.5 G/DL (6.4-8.2); eGFR 54 ML/MIN
[2023-05-25] MEDS ORDERED: CEPH-585 PO (11:50)
[2023-05-25 12:12] VITALS: BP 160/70
--- NOTE | 2023-05-25 12:17 | NUR ---
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
== END 2023-05-25 13:09 | disposition home or self-care (01) ==
LOC: ER 09:47
DX: N30.80 Other cystitis without hematuria (principal); R58 Hemorrhage, not elsewhere classified
CPT/HCPCS: 36415; 80053; 81001; 85008; 85025; 87077; 87088; 87186; 99284

== ENCOUNTER 2024-02-05 08:48 | Outpatient (CLI) | payer BC, MEDICAID ==
[~2024-02-05] VITALS: Ht 162.6 cm; Wt 125.2 kg
[~2024-02-05 08:48] MED LIST changes: -AMIT-286 PO; +AMIT-311 PO; +ASPI81TA52 PO; -CLOP75TA34 PO; -INSU100V9 SQ
[2024-02-05] MEDS ORDERED: normal saline 500ml IV soln 500 ML IV ONE (10:10)
[2024-02-05] MEDS ORDERED: aminophylline 250mg/10ml inj. IV PRN (10:10)
[2024-02-05] MEDS ORDERED: nitroGLYCERIN 0.4mg SUBLingual tab SL PRN (10:10)
[2024-02-05 11:15] VITALS: BP 116/58; PULSE 60; RESP 20; O2SAT 97
[2024-02-05] MEDS: regadenoson 0.4mg/5ml syringe IV ONE (11:26)
[2024-02-05 11:29] VITALS: BP 150/24; PULSE 60; RESP 20; O2SAT 96
[2024-02-05 11:30] VITALS: BP 126/47; PULSE 60; RESP 20; O2SAT 99
[2024-02-05 11:31] VITALS: BP 127/43; PULSE 60; RESP 20; O2SAT 99
[2024-02-05 11:32] VITALS: BP 119/41; PULSE 60; RESP 20; O2SAT 98
[2024-02-05 11:33] VITALS: BP 148/47; PULSE 60; RESP 20; O2SAT 98
== END 2024-02-05 23:59 | disposition home or self-care (01) ==
LOC: RAD 08:48
PROVIDERS: ATTEND Internal Medicine Interventional Cardiology
DX: I50.22 Chronic systolic (congestive) heart failure (principal); I25.9 Chronic ischemic heart disease, unspecified
CPT/HCPCS: 78452; 93017; A9500; J2785; J7040; J0280

== ENCOUNTER 2024-05-05 14:40 | Observation (INO) | payer BC, MEDICAID ==
[2024-05-02 12:40] LABS: BASOPHILS % (AUTO) 0.4 % (0-1); EOSINOPHILS # (AUTO) 0.1 X10'3 (0-0.9); EOSINOPHILS % (AUTO) 1.8 % (0-6); HEMATOCRIT 37.5 % (35.0-45.0); HEMOGLOBIN 12.5 g/dl (12.0-16.0); LYMPHOCYTES # (AUTO) 0.6 X10'3 (1.1-4.8); LYMPHOCYTES % (AUTO) 8.7 % (21-51); MEAN CORPUSCULAR HEMOGLOBIN 29.7 PG (27.0-31.0); MEAN CORPUSCULAR HGB CONC 33.2 g/dL (33.0-36.5); MEAN CORPUSCULAR VOLUME 89.6 FL (78-98); MEAN PLATELET VOLUME 9.6 FL (7.4-10.4); MONOCYTES # (AUTO) 0.5 X10'3 (0-0.9); MONOCYTES % (AUTO) 7.3 % (2-12); NEUTROPHILS # (AUTO) 5.5 X10'3 (1.8-7.7); NEUTROPHILS % (AUTO) 81.8 % (42-75); PLATELET COUNT 175 X10'3 (140-440); RED BLOOD COUNT 4.19 X10'6 (4.20-5.60); RED CELL DISTRIBUTION WIDTH 17.5 % (11.5-14.5); WHITE BLOOD COUNT 6.7 X10'3 (4.5-11.0)
[2024-05-02 12:54] LABS: APTT 26 SECONDS (22-32); PROTHROMBIN TIME 10.7 SECONDS (9.0-12.0)
[2024-05-02 12:56] LABS: ALBUMIN 3.3 G/DL (3.4-5.0); ANION GAP 5 (8-16); BLOOD UREA NITROGEN 21 MG/DL (7-18); BUN/CREATININE RATIO 23.6 (10.0-20.0); CALCIUM 8.8 MG/DL (8.5-10.1); CHLORIDE 103 MMOL/L (99-107); CHOL/HDL RATIO 1.8 (0.00-4.99); CHOLESTEROL 122 MG/DL (0-200); CREATININE 0.89 MG/DL (0.40-0.90); GLUCOSE 220 MG/DL (70-104); HDL CHOLESTEROL 68 MG/DL (35-60); LDL CHOLESTEROL 42 MG/DL (50-100); POTASSIUM 4.6 MMOL/L (3.5-5.1); SODIUM 137 MMOL/L (135-145); TRIGLYCERIDES 80 MG/DL (20-135); eGFR 62 ML/MIN
[~2024-05-05] VITALS: Ht 162.6 cm; Wt 126.6 kg
[2024-05-05] VITALS (11 sets, daily range): BP systolic 126–158; BP diastolic 53–83; PULSE 60–61; RESP 14–24; TEMP 99; O2SAT 92–96
[2024-05-05] MEDS ORDERED: CLON0.1T2 PO (15:30)
[2024-05-05] MEDS ORDERED: SEMA0.258 SQ (15:30)
[2024-05-05] MEDS ORDERED: INSU100V9 SQ (15:30)
[2024-05-05] MEDS ORDERED: MULT-1085 PO (15:30)
[2024-05-05] MEDS: normal saline 1,000 ML IV SCH (16:04)
[2024-05-05] MEDS: diphenhydrAMINE 25mg capsule PO PRN (16:05)
[2024-05-05] MEDS: LORazepam 0.5 MG tablet PO PRN (16:05)
[2024-05-05] MEDS ORDERED: heparin 1,000unit/ml 10ml vial 10 ML ONE (17:23)
[2024-05-05] MEDS ORDERED: nitroGLYCERIN 500mcg/5mL D5W 5 ML IV ONE (17:23)
[2024-05-05] MEDS ORDERED: LIDOcaine 1% (10mg/ml) 2ml vial ONE (17:23)
[2024-05-05] MEDS ORDERED: midazolam 1 mg/ML 2ml injection ONE ×2 (17:23→18:39)
[2024-05-05] MEDS ORDERED: iohexol 350MG/ML 100ml bottle IV ONE ×2 (17:23→18:33)
[2024-05-05] MEDS ORDERED: fentaNYL/PF 50MCG/1 ML 2ML syringe ONE ×2 (17:23→18:13)
[2024-05-05] MEDS ORDERED: verapamil 2.5 mg/ml inj IV ONE (17:23)
[2024-05-05] MEDS ORDERED: LIDOcaine 1% 30ml preserv. free vial ONE (17:58)
[2024-05-05] MEDS ORDERED: hydrALAZINE 20mg/ml inj. IV ONE (18:58)
[2024-05-05 19:16] LABS: ISTAT HGB ART 12.2 g/dl (12.0-16.0); ISTAT Hct ART 36 %PCV (35-45); ISTAT O2 SATURATION ARTERIAL 88 % (95-98); ISTAT SOURCE ART
[2024-05-05] MEDS: ondansetron/PF 4mg/2ml inj ONE (21:56)
[2024-05-05] MEDS ORDERED: ondansetron/PF 4mg/2ml inj IV ONE (22:00)
[2024-05-05] MEDS: SEMAGLUTIDE 0.25 MG SQ SCH (23:35)
[2024-05-06] MEDS ORDERED: HYDROcodone/acetaminophen 5mg/325mg tablet PO PRN (01:05)
[2024-05-06] MEDS: acetaminophen 325mg tablet PO PRN (02:01)
[2024-05-06 06:21] LABS: ISTAT HGB MIX 12.2 g/dl (12.0-16.0); ISTAT Hct MIX 36 %PCV (35-45); ISTAT O2 SATURATION MIX VENOUS 54 % (60-80); ISTAT SOURCE VEN
[2024-05-06 08:00] VITALS: RESP 16; O2SAT 99
[2024-05-06] MEDS ORDERED: multivitamins, therapeutics tablet PO SCH (08:00)
[2024-05-06] MEDS: HYDROcodone/acetaminophen 10/325mg tab PO PRN (08:03)
[2024-05-06] MEDS: aspirin 81mg, enteric-coated 1 TAB TABLET.DR PO SCH (08:04)
[2024-05-06] MEDS: pantoprazole 40mg Tablet.DR PO SCH (08:04)
[2024-05-06] MEDS: cloNIDine 0.1 mg tablet PO PRN (08:04)
[2024-05-06] MEDS: doxazosin mesylate 2mg tablet PO SCH (08:04)
[2024-05-06] MEDS: multivitamins, therapeutics tablet PO SCH (08:04)
[2024-05-06 09:03] VITALS: RESP 15
[2024-05-06] MEDS: acetaminophen 325mg/10.15ml oral unit dose solution PO SCH (13:46)
[2024-05-06] MEDS ORDERED: insulin glargine (Lantus) pen - multi-dose SQ SCH (21:00)
[2024-05-06] MEDS ORDERED: amitriptyline 50mg tablet PO SCH (21:00)
== END 2024-05-06 14:30 | disposition home or self-care (01) ==
LOC: SSTAY O 14:40 → PACU 22:27 → UNDOADMOB 22:27 → PCU 3S 22:27
PROVIDERS: ADMIT Student in an Organized Health Care Education/Training Program; ATTEND Student in an Organized Health Care Education/Training Program
DX: I35.0 Nonrheumatic aortic (valve) stenosis (principal); I25.10 Atherosclerotic heart disease of native coronary artery without angina pectoris; I10 Essential (primary) hypertension; E11.9 Type 2 diabetes mellitus without complications; E78.5 Hyperlipidemia, unspecified; I11.0 Hypertensive heart disease with heart failure; I50.20 Unspecified systolic (congestive) heart failure; I44.30 Unspecified atrioventricular block; E78.00 Pure hypercholesterolemia, unspecified; I42.0 Dilated cardiomyopathy; I48.91 Unspecified atrial fibrillation; I25.2 Old myocardial infarction; Z79.899 Other long term (current) drug therapy; Z95.810 Presence of automatic (implantable) cardiac defibrillator
CPT/HCPCS: 36415; 80048; 80061; 82803; 82948; 85014; 85025; 85610; 85730; 87081; 92978; 93005; 93456; A6258; G0378; J0360; J1644; J1815; J2250; J2405; J3010; J3490; J7030; Q0163; Q9967; 99152; 99153; A6402; C1751; C1753; C1769; C1894

== ENCOUNTER 2024-05-16 11:04 | Outpatient (CLI) | payer BC, MEDICAID ==
[~2024-05-16 11:04] MED LIST changes: -ALBU2.5V10 NEB; -ATOR80TA PO; +CLON0.1T2 PO; -FLUT1AER PO; -INSU100I8 SQ; -INSU100V11 SQ; +INSU100V9 SQ; +IODIXANOL 320 MG/ML INFUS..BTL 100ML IV ONE; -IPRA3AMP31 NEB; -LOP25T PO; +MULT-1085 PO; +SEMA0.258 SQ
[2024-05-16 11:51] LABS: BASOPHILS # (AUTO) 0.1 X10'3 (0-0.2); BASOPHILS % (AUTO) 0.8 % (0-1); EOSINOPHILS # (AUTO) 0.3 X10'3 (0-0.9); EOSINOPHILS % (AUTO) 3.8 % (0-6); HEMATOCRIT 33.6 % (35.0-45.0); HEMOGLOBIN 11.2 g/dl (12.0-16.0); LYMPHOCYTES # (AUTO) 0.5 X10'3 (1.1-4.8); MEAN CORPUSCULAR HEMOGLOBIN 29.8 PG (27.0-31.0); MEAN CORPUSCULAR HGB CONC 33.3 g/dL (33.0-36.5); MEAN CORPUSCULAR VOLUME 89.7 FL (78-98); MEAN PLATELET VOLUME 9.4 FL (7.4-10.4); MONOCYTES # (AUTO) 0.5 X10'3 (0-0.9); MONOCYTES % (AUTO) 7.1 % (2-12); NEUTROPHILS # (AUTO) 5.8 X10'3 (1.8-7.7); NEUTROPHILS % (AUTO) 81.3 % (42-75); PLATELET COUNT 242 X10'3 (140-440); RED BLOOD COUNT 3.75 X10'6 (4.20-5.60); RED CELL DISTRIBUTION WIDTH 17.6 % (11.5-14.5); WHITE BLOOD COUNT 7.1 X10'3 (4.5-11.0)
[2024-05-16 12:08] LABS: APTT 27 SECONDS (22-32); INR 1.1 INR; PROTHROMBIN TIME 11.3 SECONDS (9.0-12.0)
[2024-05-16 12:20] LABS: ALANINE AMINOTRANSFERASE 32 U/L (12-78); ALBUMIN/GLOBULIN RATIO 0.9 (1.1-1.5); ALKALINE PHOSPHATASE 149 IU/L (46-116); ANION GAP 5 (8-16); ASPARTATE AMINO TRANSFERASE 26 U/L (10-37); BILIRUBIN,TOTAL 1.7 MG/DL (0.1-1.0); BLOOD UREA NITROGEN 22 MG/DL (7-18); BUN/CREATININE RATIO 23.9 (10.0-20.0); CALCIUM 9.3 MG/DL (8.5-10.1); CHLORIDE 102 MMOL/L (99-107); CREATININE 0.92 MG/DL (0.40-0.90); GLUCOSE 138 MG/DL (70-104); POTASSIUM 3.7 MMOL/L (3.5-5.1); PRO BRAIN NATRIURETIC PEPTIDE 2340 PG/ML (0-450); SODIUM 137 MMOL/L (135-145); TOTAL CARBON DIOXIDE 30.1 MMOL/L (24-32); TOTAL PROTEIN 6.5 G/DL (6.4-8.2); eGFR 59 ML/MIN
== END 2024-05-16 23:59 | disposition home or self-care (01) ==
LOC: 64 CT 11:04
PROVIDERS: ATTEND Internal Medicine Cardiovascular Disease
DX: D25.9 Leiomyoma of uterus, unspecified (principal); I51.7 Cardiomegaly; I35.0 Nonrheumatic aortic (valve) stenosis; R06.02 Shortness of breath; I65.29 Occlusion and stenosis of unspecified carotid artery; K80.20 Calculus of gallbladder without cholecystitis without obstruction; K57.30 Diverticulosis of large intestine without perforation or abscess without bleeding; M47.814 Spondylosis without myelopathy or radiculopathy, thoracic region
CPT/HCPCS: 36415; 71046; 71275; 74174; 75572; 80053; 83880; 85025; 85610; 85730; Q9967

== ENCOUNTER 2025-09-02 14:27 | Inpatient (IN) | payer BC, MEDICAID ==
[~2025-09-02] VITALS: Ht 167.6 cm; Wt 108.0 kg
[~2025-09-02 14:27] MED LIST changes: -ACET-1025 PO; +ACET325T54 PO; +ASCO-134 PO; -ASPI81TA52 PO; +ATOR-429 PO; +CLOP-32 PO; +EMPA10TA PO; +FERR325T28 PO; +FLUT1AER INH; +FLUT1BLS4 INH; +INSU100C10 SQ; -IODIXANOL 320 MG/ML INFUS..BTL 100ML IV ONE; +METO50TA17 PO; +SACU1TAB7 PO; +SPIR25TA PO
--- NOTE | 2025-09-02 15:33 | ELECTROCARDIOGRAPH REPORT ---
[facility] Test Date: 2025-09-02 Test Time: 15:30:12 Pat Name: MARIAH MIRANDA Department: [facility]ER Patient ID: [facility]-[id number] Room: [place] [address] Gender: F Yarn Dyer: : 1945 Requested By: SIENNA VALENCIA Order Number: [id number] Reading MD: Dr. Teofilo Hauser Measurements Intervals [place] Rate: 70 P: 0 DE: 0 QRS: -49 QRSD: 138 T: 131 QT: 455 QTc: 491 Interpretive Statements Afib/flutter and ventricular-paced rhythm No further analysis attempted due to paced rhythm Electronically Signed On 09-11-2025 8:17:[address] Teofilo Hauser Please click the below link to view image of tracing.
[2025-09-02 15:58] LABS: MEAN PLATELET VOLUME 10.1 FL (7.4-10.4); RED CELL DISTRIBUTION WIDTH 17.7 % (11.5-14.5)
[2025-09-02 16:15] LABS: CREATININE 0.84 MG/DL (0.40-0.90); PRO BRAIN NATRIURETIC PEPTIDE 1504 PG/ML (0-450); TOTAL CARBON DIOXIDE 28.8 MMOL/L (24-32); eCRCL 51 ML/MIN; eGFR 65 ML/MIN
[2025-09-02 16:24] LABS: LEUKOCYTE ESTERASE ,URINE NEGATIVE (Neg); NITRITES, URINE NEGATIVE (Neg); OCCULT BLOOD,URINE SMALL (Neg)
[2025-09-02 16:31] LABS: UA COLLECTION TYPE OTHER
[2025-09-02 16:33] LABS: SQUAMOUS EPITHELIAL CELL,UR MODERATE /LPF (FEW)
[2025-09-02 16:35] LABS: YEAST FEW /HPF (NEGATIVE)
--- NOTE | 2025-09-02 16:44 | RADIOLOGY REPORT ---
CLINICAL HISTORY: Fall with Head strike, TECHNIQUE: Helical scanning was performed of the head from the skull base to the vertex. Multiplanar reconstructions were performed. This exam was performed according to our departmental dose optimization program. Up-to-date CT equipment and radiation dose reduction techniques are utilized as appropriate. CTDI 71 DLP 1235 COMPARISON: ULTRASOUND HEAD NECK on DOS: 05/21/23, CT STROKE ALERT on DOS: 05/19/23 FINDINGS: There is no evidence for acute intracranial hemorrhage, acute ischemic changes, mass, mass effect, or extra-axial fluid collection. There is no hydrocephalus or midline shift. There is no effacement of the cerebral sulci and basal subarachnoid cisterns. The estrada-white matter differentiation is well maintained. There is mild brain volume loss and minimal chronic small vessel ischemic change. There has been bilateral cataract extraction. There are numerous calcified sebaceous cyst within the scalp The imaged paranasal sinuses are clear. IMPRESSION: NO ACUTE INTRACRANIAL ABNORMALITY SEEN.
--- NOTE | 2025-09-02 17:21 | Physician Documentation ---
History of Present Illness ~ Chief Complaint: Dizziness Stated Complaint: DIZZINESS Time Seen by MD: 15:14 Primary Medical Doctor: Lorraine Rain,[facility] HPI Patient is a very pleasant 80-year-old female that presents to the emergency department via EMS after sustaining a near syncopal episode with a fall at her home earlier today. Patient reports that she stood up to go weight by the door as she approached the door she was going to lower herself into a chair that was next to the door because she felt dizzy patient was unable to do that fell forward hitting her head on the door floor. Patient denies any loss of consciousness, she was able to call 911 from her cell phone, and she was able to scoot herself away from the door so the EMS could come in to her home. Patient reports that she was recently discharged from an extended care facility after having a TAVR procedure performed by Dr. Kelly. Reports that she has an AICD in place she has been trickling overly paste and has undergone a watchman procedure for AFib previously. Patient reports that she has had multiple episodes of dizziness and near-syncope over the last several months. Patient reports that she was told she has orthostasis. Patient reports that she had a an appointment with Dr. Lea recently but did not report to him that she had had any dizziness. Patient reports that she was supposed to follow up with Dr. Kelly today to have her pacemaker interrogated but did not get there due to today's event. Patient also reports several days of dysuria but no fever chills nausea vomiting or abdominal pain at this time. Patient's symptoms reported at this time. Medication Reconciliation Allergies: Coded Allergies: lettuce (Verified Allergy, Intermediate, 06/06/25) VOMIT tomato (Verified Allergy, Intermediate, 06/06/25) Sulfa (Sulfonamide Antibiotics) (Verified Allergy, Mild, RASH, 06/06/25) aspirin (Verified Allergy, Mild, RASH, 06/06/25) codeine (Verified Allergy, Mild, RASH, 06/06/25) amlodipine (Verified Allergy, Unknown, 06/06/25) gabapentin (Verified Allergy, Unknown, 05/30/22) lisinopril (Verified Allergy, Unknown, 05/30/22) losartan (Verified Allergy, Unknown, 05/30/22) nortriptyline (Verified Allergy, Unknown, 05/30/22) Scheduled Amitriptyline Hcl* (Elavil*), 1 TAB PO HS, (Reported) Ascorbic Acid (Ascorbic Acid), 1 TAB PO BID, (Reported) Atorvastatin Calcium* (Lipitor*), 1 TAB PO DAILY, (Reported) Clopidogrel Bisulfate (Plavix), 1 TAB PO DAILY, (Reported) Doxazosin Mesylate (Doxazosin Mesylate), 1 TAB PO DAILY, (Reported) Empagliflozin (Jardiance), 1 TAB PO DAILY, (Reported) Ferrous Sulfate* (Ferrous Sulfate*), 1 TAB PO DAILY, (Reported) Fluticasone/Umeclidin/Vilanter (Trelegy Ellipta 100-62.5-25), 1 PUFFS INH DAILY, (Reported) Fluticasone/Vilanterol (Breo Ellipta 100-25 Mcg INH), 1 PUFFS INH DAILY, (Reported) Insulin Glargine,Hum.rec.anlog (Lantus), 15 UNITS SQ HS, (Reported) Insulin Lispro (Humalog), 0 SQ TID, (Reported) Metoprolol Tartrate* (Metoprolol Tartrate*), 25 MG PO DAILY, (Reported) Multivitamin (Multi Vitamin Daily), 1 TAB PO DAILY, (Reported) Pantoprazole Sodium (PROTONIX tablet), 1 TAB PO BID, (Reported) Sacubitril/Valsartan (Entresto 49 mg-51 mg Tablet), 1 TAB PO DAILY, (Reported) Semaglutide (Ozempic), 0.25 MG SQ Q7D, (Reported) Spironolactone (Aldactone), 0.5 TAB PO DAILY, (Reported) Scheduled PRN Acetaminophen (Acetaminophen), 2 TAB PO Q6H PRN for pain or fever, (Reported) Clonidine HCl (Clonidine HCl), 1 TAB PO DAILY PRN for blood pressure, (Reported) Past Medical History Past Medical History: CVA/TIA/Stroke, Atrial Fibrillation, Congestive Heart Failure, *PULMONARY*, COPD, GI Bleed, Diabetes, Anxiety Past Surgical History: orthopedic surgeries, pacemaker Patient History: FH: diabetes mellitus MOTHER, , Age: 99, Cause: Old age Brother FH: heart attack FH: thyroid cancer MOTHER, , Age: 99, Cause: Old age Smoking Status: Never smoker Alcohol Use: None Drug Use: none Lives with: Alone Lives In: Home Review of Systems ROS As stated above in the HPI, otherwise all systems are reviewed and negative. Physical Exam Vital Signs: Temperature: 98.1, Source: Oral, Heart Rate: 70, Respiratory Rate: 17, BP: 151/52, Pulse Oximetry: 97, Weight: 108.000 Oxygen Flow Rate: 0 Physical Exam VITALS: Reviewed and as above. GENERAL: Alert, no apparent distress. MUSCULOSKELETAL: Left arm in flexed position as patient too painful to move, please arrange of motion of the left elbow due to pain mild swelling at the site of the proximal radial head. SKIN: Warm and dry, no rash NEURO: Oriented x4, No motor or sensory deficit PSYCH: Normal mood and affect, no agitation Progress Results/Orders Results/Orders Orders - TESFA[facility] PERDOMO HOUSING MANAGEMENT REPRESENTATIVE Ct Head (09/02/25 16:30) Cult Urine + [place] Ct (09/02/25 16:36) Page Hospitalist (09/02/25 17:26) Completed Orders - TESFA[facility] PERDOMO HOUSING MANAGEMENT REPRESENTATIVE Ct Head (09/02/25 16:30) Ua W/Microscopic, Cult If Ind (09/02/25 16:09) Ceftriaxone/E8z-Zactffxc 1gm (Rocephin 1 (09/02/25 16:50) Vital Signs 09/02/25 09/02/25 14:45 15:14 Temp 98.1 Pulse 70 70 Resp 15 17 B/P (MAP) 157/59 151/52 (85) Pulse Ox 97 97 O2 Flow Rate 0 0 Laboratory Tests Test 09/02/25 14:55 09/02/25 16:09 09/02/25 16:29 White Blood Count 8.6 Red Blood Count 3.64 L Hemoglobin 11.2 L Hematocrit 33.7 L Mean Corpuscular Volume 92.6 Mean Corpuscular Hemoglobin 30.7 Mean Corpuscular Hemoglobin Concent 33.1 Red Cell Distribution Width 17.7 H Platelet Count 168 Mean Platelet Volume 10.1 Neutrophils (%) (Auto) 87.3 H Lymphocytes (%) (Auto) 4.3 L Monocytes (%) (Auto) 6.0 Eosinophils (%) (Auto) 1.9 Basophils (%) (Auto) 0.5 Neutrophils # (Auto) 7.5 Lymphocytes # (Auto) 0.4 L Monocytes # (Auto) 0.5 Eosinophils # (Auto) 0.2 Basophils # (Auto) 0.0 CBC Comment Sodium Level 141 Potassium Level 4.2 Chloride Level 106 Carbon Dioxide Level 28.8 Anion Gap 6 L Blood Urea Nitrogen 15 Creatinine 0.84 Estimated GFR/1.73 m2 65 BUN/Creatinine Ratio 17.9 Glucose Level 144 H Calcium Level 8.6 Troponin I High Sensitivity 32 35 Pro-B-Type Natriuretic Peptide 1504 H Albumin 3.4 Chemistry Comments Urine Specimen Description Other Urine Color Yellow Urine Clarity Clear Urine pH 6.5 Urine Specific [place] 1.015 Urine Protein 100 H Urine Glucose (UA) >=1000 H Urine Ketones Negative Urine Occult Blood Small Urine Nitrite Negative Urine Bilirubin Negative Urine Urobilinogen 0.2 Urine Leukocyte Esterase Negative Urine RBC 0-2 Urine WBC 5-10 H Urine Squamous Epithelial Cells Moderate Urine Bacteria 1+ Urine Yeast Few Urine Culture Indicated Indicated Volume Urine Centrifuged 10 ml Urine Comment Troponin I High Sens Percent Delta 9 Troponin I Hi Sens Absolute Change 3 Microbiology Date/Time Source Procedure Growth Status 09/02/25 16:36 Urine Other Urine Culture - Preliminary Culture received. Resulted Departure Referrals: NO PRIMARY CARE PROVIDER (PCP) TESFAYE PERDOMO HOUSING MANAGEMENT REPRESENTATIVE Sep 02, 2025 17:21
[2025-09-02] MEDS ORDERED: magnesium sulf-water 4G/100mL 100 ML IV PRN (18:15)
[2025-09-02] MEDS ORDERED: magnesium Cl slow-release 64mg tablet PO PRN (18:15)
[2025-09-02] MEDS ORDERED: potassium Cl 40MEQ/1/2NS 520ml 520 ML IV PRN (18:15)
[2025-09-02] MEDS ORDERED: mag hydrox/Alum hydrox/simeth 30ml oral suspension PO PRN (18:15)
[2025-09-02] MEDS ORDERED: magnesium sulf-water 2g/50mL 50 ML IV PRN (18:15)
[2025-09-02] MEDS ORDERED: ondansetron/PF 4mg/2ml inj IV PRN (18:15)
[2025-09-02] MEDS ORDERED: potassium Cl 20 mEq SR tablet PO PRN ×2 (18:15)
--- NOTE | 2025-09-02 18:27 | HISTORY AND PHYSICAL-Residence ---
History & Physical Providers to CC Resident Creating Document: THEE JOSEPH, RES ~ History of Present Illness Primary Medical Doctor: Dr Nation Reason for Admit\Complaint: Dizziness History of Present Illness A 80 year-old female with pmh of orthostasis,CHFrEF 45%,- status post AICD,Chronic CVA, hypertension, hyperlipidemia, diabetes, previous stroke due to atrial fibrillation presented to the ED via EMS after sustaining a near syncopal episode with a fall at her home earlier today. Patient reports that she stood up to go weight by the door as she approached the door she was going to lower herself into a chair that was next to the door because she felt dizzy and fell forward hitting her head on the door. Patient denies any loss of consciousness, she was able to call 911 and came to the ER. Patient denies any confusion, spinning of the room ,palpitations ,chest pain or shortness of breath. Patient has multiple similar episodes over the last several months. Patient reports that she was recently discharged from an extended care facility after having a TAVR procedure performed by Dr. Kelly. Patient's primary care doctor is Dr. Nation Patient's stage electrician helper Dr. Kelly Patient lives alone with her dog. Her son lives close by to her. Allergies: Coded Allergies: lettuce (Verified Allergy, Intermediate, 06/06/25) VOMIT tomato (Verified Allergy, Intermediate, 06/06/25) Sulfa (Sulfonamide Antibiotics) (Verified Allergy, Mild, RASH, 06/06/25) aspirin (Verified Allergy, Mild, RASH, 06/06/25) codeine (Verified Allergy, Mild, RASH, 06/06/25) amlodipine (Verified Allergy, Unknown, 06/06/25) gabapentin (Verified Allergy, Unknown, 05/30/22) lisinopril (Verified Allergy, Unknown, 05/30/22) losartan (Verified Allergy, Unknown, 05/30/22) nortriptyline (Verified Allergy, Unknown, 05/30/22) Home Medications Home Medications Active Reported Ascorbic Acid 500 Mg Tablet 1 Tab PO BID Aldactone (Spironolactone) 25 Mg Tablet 0.5 Tab PO DAILY Jardiance (Empagliflozin) 10 Mg Tablet 1 Tab PO DAILY Trelegy Ellipta 100-62.5-25 (Fluticasone/Umeclidin/Vilanter) 100-62.5 Blst.w.dev 1 Puffs INH DAILY Entresto 49 mg-51 mg Tablet (Sacubitril/Valsartan) 49 Mg-51 Mg Tablet 1 Tab PO DAILY HOLD FOR SBP < 110 Acetaminophen 325 Mg Tablet 2 Tab PO Q6H PRN Breo Ellipta 100-25 Mcg INH (Fluticasone/Vilanterol) 100 Mcg-25 Mcg/Dose Aer.pow.ba 1 Puffs INH DAILY 30 Days Humalog (Insulin Lispro) 100 Unit/Ml Cartridge 0 SQ TID PER SS= 81-150 = 0 UNITS 151-200 = 2 UNITS 201-250 = 3 UNITS 251-300 = 4 UNITS 301-350 = 5 UNITS 35--400 = 6 UNITS > 400 = CALL Ferrous Sulfate* (Ferrous Sulfate) 325 Mg Tablet 1 Tab PO DAILY Plavix (Clopidogrel Bisulfate) 75 Mg Tablet 1 Tab PO DAILY Metoprolol Tartrate* (Metoprolol Tartrate) 50 Mg Tablet 25 Mg PO DAILY HOLD FOR SBP < 110 OR HR < 60 Lipitor* (Atorvastatin Calcium) 80 Mg Tablet 1 Tab PO DAILY Multi Vitamin Daily (Multivitamin) 1 Each Tablet 1 Tab PO DAILY Clonidine HCl 0.1 Mg Tablet 1 Tab PO DAILY PRN SBP>150 Lantus (Insulin Glargine,Hum.rec.anlog) 100 Unit/Ml Vial 15 Units SQ HS Ozempic (Semaglutide) 0.25 Mg/0.368 Ml Pen.injctr 0.25 Mg SQ Q7D EVERY SUNDAY PROTONIX tablet (Pantoprazole Sodium) 40 Mg Tablet.dr 1 Tab PO BID 30 Days Doxazosin Mesylate 2 Mg Tablet 1 Tab PO DAILY Elavil* (Amitriptyline HCl) 50 Mg Tablet 1 Tab PO HS Past Medical History Past Medical History Orthostatic hypotension(due to autonomic imbalance) TAVR Chronic HFrEF with EF 45% status post AICD Atrial fib Status post Watchman procedure Pacemaker in place Hypertension Hyperlipidemia Diabetes mellitus type 2 Obesity Chronic CVA Normocytic anemia Past Surgical History Surgical History Comment Cholecystectomy Pacemaker in place AICD Polypectomy Right knee arthroplasty Family History Family History: FH: diabetes mellitus MOTHER, , Age: 99, Cause: Old age Brother FH: heart attack FH: thyroid cancer MOTHER, , Age: 99, Cause: Old age Past Social History Social History Comment Patient used to smoke three packs a day for 10 years and quit 50 years Patient used to drink 2-3 drinks of beer or whiskey for few years but quit 50 years No illicit drug abuse Smoking: Quit greater than 1 year Alcohol Use: None Drug Use: None Lives with: Alone Lives In: Home ROS ROS Constitutional: Reports dizziness, No fever, chills,weight gain or loss, night sweats Eyes: No pain, erythema, discharge, blurring of vision ENT: No sore throat, epistaxis, tinnitus Cardiovascular:No chest pain, palpitations, syncope, lower extremity edema, paroxysmal nocturnal dyspnea Respiratory: No Shortness of breath and cough, No hemoptysis. Gastrointestinal:No Abdominal pain, vomiting,nausea and melena. Normal appetite. No constipation,diarrhea, hematemesis, Musculoskeletal: No swelling or edema of extremities. Integumentary: No change in skin, hair, nails. No swelling, bruising, abrasions Neurologic: No weakness,No headache, neck pain, numbness or tingling of the extremities, Psychiatric: No delusions, depression, loss of interest in normal activity or change in sleep pattern, hallucinations, suicidal ideations Endocrine: No fatigue, no weakness. polydipsia, polyuria, change in appetite, heat or cold intolerance, sweating, dry skin Hematological: No bleeding, petechiae, bruising Allergies: No asthma or urticaria Exam Vitals: Vital Signs Date Time Temp Pulse Resp B/P (MAP) Pulse Ox O2 Delivery O2 Flow Rate FiO2 09/02/25 15:14 70 17 151/52 (85) 97 0 09/02/25 14:45 98.1 General: Elderly female, moderately obese, Awake , alert and oriented to time,place, person,not in distress HEENT: Atraumatic, normocephalic, PERRLA, EOMI, anicteric sclera ; pink conjunctiva, moist mucos membranes Neck: Trachea midline. Supple, normal range of motion, no JVD, no lymphadenopathy Chest and Respiratory: Equal breath sounds bilaterally, no tachypnea, wheezing, ronchi,rubs .Chest wall is symmetric and without deformity. Cardiac: S1, S2 heard, irregular rhythm, ejection systolic murmur appreciated in the aortic area, Pacemaker in place Abdomen: Soft, No tenderness, No guarding or rigidity, Lugo's sign negative. normal bowel sounds x4 quadrant, no hepatosplenomegaly MSK: Range of motion of all extremities are normal. There is no joint pain or joint swelling or joint erythema. There is no muscle pain or tenderness or swelling. Extremities: warm, well-perfused, No cyanosis, clubbing, 2+ pulses felt, left leg deformed knee due to osteoarthitis Neurological: Speech is clear, alert, and oriented x 4. No sensory or motor deficits. Cranial nerves II-XII intact. Skin: Warm and dry, patient has scar on her right knee for knee arthroplasty Psychiatry: Affect and mood are normal Diagnostic Data Last Recorded Lab Results: 09/02/25 1455 09/02/25 1455 Advance Care Planning Advanced Care plannin - 30 Minutes Additional Plan Dizziness under evaluation Patient had recurrent falls but not associated with head hit, loss of conscious, or confusion, spinning sensation CT head was normal Ordered echocardiogram Continue surveillance system monitor Dr. Avel Kelly, the stage electrician helper consulted ordered Orthostatic vitals Troponins are negative EKG showed paced rhythm BNP is 1500 Glucose is 96 Follow with TSH Held Entrensto Pcaemaker Pacemaker intterogation. Pending home med reconciliation Code status: DNR DVT prophylaxis : Heparin Nutrition: Heart healthy diet Physical therapy: ordered Line/tube: PIV Analgesia/sedation: Morphine p.r.n. Disposition: Continue telemetry monitoring. Resident attestation The above note has been reviewed and supervised by a senior resident PGY3 Patient was seen, examined and discussed with the attending physician Los Joseph MD Internal Medicine Resident, PGY 1 Date of Service: Sep 02, 2025 Billing Provider: SID FINN MD Common Visit Codes: [id number] INP/OBS CARE (HIGH) Secondary Visit Codes: [id number] CARE PLAN 30 MINUTES THEE JOSEPH, RES Sep 02, 2025 18:27 SID FINN MD Sep 03, 2025 10:31
[2025-09-02] MEDS: CefTRIAXone/D5W-Rocephin 1gm 50 ML IV ONE (18:36)
[2025-09-02] MEDS ORDERED: morphine 4 MG/ML inj SYRINge IV PRN (18:43)
[2025-09-02 18:47] LABS: APTT 28 SECONDS (22-32); INR 1.1 INR
[2025-09-02 19:24] LABS: CREATININE 0.71 MG/DL (0.40-0.90); PHOSPHORUS 3.7 MG/DL (2.3-4.5); TOTAL CARBON DIOXIDE 28.9 MMOL/L (24-32); eCRCL 60 ML/MIN; eGFR 79 ML/MIN
[2025-09-02] MEDS: K and/or MAG REPLACEMENT MC SCH (19:40)
[2025-09-02] MEDS: docusate sod 100mg capsule PO SCH (20:00)
[2025-09-02] MEDS: heparin, porcine 5000 units/ml vial SQ SCH (20:34)
[2025-09-02 21:46] VITALS: BP 157/59; PULSE 72; RESP 15; TEMP 97.8; O2SAT 96
[2025-09-03] VITALS (9 sets, daily range): BP systolic 132–186; BP diastolic 37–90; PULSE 60–72; RESP 11–19; TEMP 97–98.5; O2SAT 95–97
[2025-09-03] MEDS ORDERED: DEXTROSE 15 GM of carb/4 tabs (each vial/BOTTLE has 4 tablets) PO PRN ×2 (03:35)
[2025-09-03] MEDS ORDERED: glucagon, human recombinant 1mg kit SUBCUT PRN (03:35)
[2025-09-03] MEDS ORDERED: dextrose 50%-water 50ml dispensing syringe IV PRN ×2 (03:35)
[2025-09-03] MEDS: INSULIN LISPRO 100 UNIT/ML INSULN.PEN MULTI-DOSE SQ SCH (07:00)
[2025-09-03 07:41] LABS: MEAN PLATELET VOLUME 10.4 FL (7.4-10.4); RED CELL DISTRIBUTION WIDTH 17.4 % (11.5-14.5)
[2025-09-03 07:55] LABS: CHOL/HDL RATIO 2.2 (0.00-4.99); CREATININE 0.77 MG/DL (0.40-0.90); LDL CHOLESTEROL 40 MG/DL (50-100); TOTAL CARBON DIOXIDE 24.3 MMOL/L (24-32); eCRCL 55 ML/MIN; eGFR 72 ML/MIN
--- NOTE | 2025-09-03 08:37 | RADIOLOGY REPORT ---
CHEST RADIOGRAPH Indication: CP Technique: Single frontal view of the chest was obtained COMPARISON: DI CHEST,SINGLE VIEW on DOS: 07/24/25, DI CHEST,TWO VIEWS on DOS: 07/16/25, DI CHEST,TWO VIEWS on DOS: 07/16/25, DI CHEST,SINGLE VIEW on DOS: 06/06/25, DI CHEST,TWO VIEWS on DOS: 05/16/24 FINDINGS: Lines and Tubes: Left chest AICD Lungs: Congestion Pleura: No effusion. No pneumothorax. Cardiomediastinal contours: Cardiomegaly Bones: Unremarkable IMPRESSION: Increased interstital prominence. This may represent pulmonary vascular congestion and/or viral pneumonia. Clinical correlation advised.
--- NOTE | 2025-09-03 17:01 | CONSULTATION REPORT ---
History of Present Illness Providers to CC CC: DAVID KELLY MD ~ Reason for Admit\Admit Dx: Cardiology consultation Refering MD: Dr Nation History of Present Illness Patient with past medical history significant for hypertension, hyperlipidemia, diabetes, rheumatic fever as a child, permanent pacemaker, atrial fibrillation, heart failure with reduced ejection fraction, GI bleed status post Amulet device, severe aortic stenosis status post TAVR. Patient underwent TAVR procedure July 24, 2025. She tolerated well. Postprocedure echocardiogram performed August 10, 2025 reveals LVEF 65-70%. TAVR valve well seated. Mean gradient 12 mm of mercury peak velocity 2.1 m/sec. She presented with complaints of fall. She states she has been very dizzy especially when she moves. She stated she [facility] when she felt her legs get wobbly and she fell over. She denies loss of consciousness. She states her shortness for breath has improved but she is somewhat short of breath when she walks. No chest pain or pressure. Allergies: Coded Allergies: lettuce (Verified Allergy, Intermediate, 06/06/25) VOMIT tomato (Verified Allergy, Intermediate, 06/06/25) Sulfa (Sulfonamide Antibiotics) (Verified Allergy, Mild, RASH, 06/06/25) aspirin (Verified Allergy, Mild, RASH, 06/06/25) codeine (Verified Allergy, Mild, RASH, 06/06/25) amlodipine (Verified Allergy, Unknown, 06/06/25) gabapentin (Verified Allergy, Unknown, 05/30/22) lisinopril (Verified Allergy, Unknown, 05/30/22) losartan (Verified Allergy, Unknown, 05/30/22) nortriptyline (Verified Allergy, Unknown, 05/30/22) Home Medications Home Medications Active Reported Ascorbic Acid 500 Mg Tablet 1 Tab PO BID Aldactone (Spironolactone) 25 Mg Tablet 0.5 Tab PO DAILY Jardiance (Empagliflozin) 10 Mg Tablet 1 Tab PO DAILY Trelegy Ellipta 100-62.5-25 (Fluticasone/Umeclidin/Vilanter) 100-62.5 Blst.w.dev 1 Puffs INH DAILY Entresto 49 mg-51 mg Tablet (Sacubitril/Valsartan) 49 Mg-51 Mg Tablet 1 Tab PO DAILY HOLD FOR SBP < 110 Acetaminophen 325 Mg Tablet 2 Tab PO Q6H PRN Breo Ellipta 100-25 Mcg INH (Fluticasone/Vilanterol) 100 Mcg-25 Mcg/Dose Aer.pow.ba 1 Puffs INH DAILY 30 Days Humalog (Insulin Lispro) 100 Unit/Ml Cartridge 0 SQ TID PER SS= 81-150 = 0 UNITS 151-200 = 2 UNITS 201-250 = 3 UNITS 251-300 = 4 UNITS 301-350 = 5 UNITS 35--400 = 6 UNITS > 400 = CALL Ferrous Sulfate* (Ferrous Sulfate) 325 Mg Tablet 1 Tab PO DAILY Plavix (Clopidogrel Bisulfate) 75 Mg Tablet 1 Tab PO DAILY Metoprolol Tartrate* (Metoprolol Tartrate) 50 Mg Tablet 25 Mg PO DAILY HOLD FOR SBP < 110 OR HR < 60 Lipitor* (Atorvastatin Calcium) 80 Mg Tablet 1 Tab PO DAILY Multi Vitamin Daily (Multivitamin) 1 Each Tablet 1 Tab PO DAILY Clonidine HCl 0.1 Mg Tablet 1 Tab PO DAILY PRN SBP>150 Lantus (Insulin Glargine,Hum.rec.anlog) 100 Unit/Ml Vial 15 Units SQ HS Ozempic (Semaglutide) 0.25 Mg/0.368 Ml Pen.injctr 0.25 Mg SQ Q7D EVERY SUNDAY PROTONIX tablet (Pantoprazole Sodium) 40 Mg Tablet.dr 1 Tab PO BID 30 Days Doxazosin Mesylate 2 Mg Tablet 1 Tab PO DAILY Elavil* (Amitriptyline HCl) 50 Mg Tablet 1 Tab PO HS Past Medical History Medical History Comment Severe aortic stenosis status post TAVR Rheumatic fever Atrial fibrillation GI bleed Heart failure with reduced ejection fraction Previous CVA Diabetes mellitus Obesity Past Surgical History Surgical History Comment amulet device TAVR Cholecystectomy ICD Past Family History Family History: FH: diabetes mellitus MOTHER, , Age: 99, Cause: Old age Brother FH: heart attack FH: thyroid cancer MOTHER, , Age: 99, Cause: Old age Physical Exam Last Vital Signs Recorded: RN Vital Signs have been reviewed: Yes, Temperature: 98.5, Source: Oral, Respiratory Rate: 16, Pulse Oximetry: 96, Weight: 108.000 Physical Exam General: Awake, alert, oriented. No apparent distress Neck: Supple. Normal range of motion. No JVD Respiratory: Lungs are clear to auscultation bilaterally. No respiratory distress. Chest: Normal shape and size. No accessory muscle use. Cardiovascular: Regular rate and rhythm. S1-S2. No murmur, gallop, rub. Gastrointestinal: Abdomen is soft. Nontender to palpation. Bowel sounds present. Extremities: No lower extremity edema, cyanosis or clubbing. Neurologic: Alert and oriented x4. Nonfocal Psychiatric: Normal mood and affect. Skin: Normal color. Warm and dry. Results EKG EKG V paced rhythm. Underlying atrial fibrillation. Diagram Lab Result Diagram: 09/03/2562109/03/25621 Assessment/Plan Additional Plan Patient presented with complaints of fall and dizziness. The following is her problem list: Dizziness Suspect vertigo --she had an echocardiogram 3-4 weeks ago that shows TAVR valve well seated. --carotid ultrasound April 2024 with mild carotid artery stenosis. --recommend hydration Heart failure with improved ejection fraction --continue medications Aortic stenosis status post TAVR --TAVR valve well seated and functioning normally Hypertension --controlled Atrial fibrillation status post amulet --continue Plavix. Case discussed with Dr. Jose Kelly who is in agreement with this plan. Supervising MD Supervising Physician: RADHA Villeda NP Sep 03, 2025 17:01
--- NOTE | 2025-09-03 17:12 | PROGRESS NOTE- Residence ---
Progress Note - Resident Providers to CC Resident Creating Document: THEE JOSEPH, RES ~ Head-Non Protocol Head Indications Met/Not Met: F/C Indications Not Met Antibiotic Timeout Antibiotic Ordered?: No Subjective Patient was seen at bedside. Patient still continues to have dizziness when she ambulates and uses walker at home. Patient denies any spinning of head, confusion, altered level of consciousness. No acute overnight symptoms noted. Objective Vital Signs Date Time Temp Pulse Resp B/P (MAP) Pulse Ox O2 Delivery O2 Flow Rate FiO2 09/03/25 08:00 60 147/37 (73) 69 157/38 (77) 72 149/52 (84) 09/03/25 08:00 16 96 Room Air 09/03/25 06:00 98.5 09/02/25 20:59 0 Result Diagram: 09/03/2562109/03/25621 Elderly female, moderately obese, Awake , alert and oriented to time,place, person,not in distress HEENT: Atraumatic, normocephalic, PERRLA, EOMI, anicteric sclera ; pink conjunctiva, moist mucos membranes Neck: Trachea midline. Supple, normal range of motion, no JVD, no lymphadenopathy Chest and Respiratory: Equal breath sounds bilaterally, no tachypnea, wheezing, ronchi,rubs .Chest wall is symmetric and without deformity. Cardiac: S1, S2 heard, paced rhythm, ejection systolic murmur appreciated in the aortic area, Pacemaker in place Abdomen: Soft, No tenderness, No guarding or rigidity, Lugo's sign negative. normal bowel sounds x4 quadrant, no hepatosplenomegaly MSK: Range of motion of all extremities are normal. There is no joint pain or joint swelling or joint erythema. There is no muscle pain or tenderness or swelling. Extremities: warm, well-perfused, No cyanosis, clubbing, 2+ pulses felt, left leg deformed knee due to osteoarthitis , patient has scar on her right knee for knee arthroplasty Neurological: Speech is clear, alert, and oriented x 4. No sensory or motor deficits. Cranial nerves II-XII intact. Skin: Warm and dry, Psychiatry: Affect and mood are normal Coagulation Studies Laboratory Tests Test 09/02/25 14:55 Prothrombin Time 10.9 SECONDS (9.0-12.0) INR International Normalized Ratio 1.1 INR Activated Partial Thromboplast Time 28 SECONDS (22-32) Coagulation Comments Advance Care Planning Advanced Care plannin - 30 Minutes Plan Plan Near Syncope epsiode possible 2/2 Bilateral BPPV/Autonomic Imbalance/Age related deconditioning Patient had recurrent falls but not associated with head hit, loss of conscious, or confusion, spinning sensation CT head was normal Ordered echocardiogram Continue management advisor Dr. Avel Kelly, the sourcing manager consulted ordered Orthostatic vitals Troponins are negative EKG showed paced rhythm BNP is 1500 Glucose is 96 Follow with TSH Held Entrensto Pcaemaker Pacemaker intterogation. 09/03/25: No orthostatic vitals Telemetry showed paced rhythm H&H are stable Urinalysis is normal Glucose is 176 on glucometer TSH Meclizine 12.5 mg p.o. b.i.d. Modified Brady's maneuver Ordered physical therapy Chronic HFrEF with EF 45% status post AICD TAVR Echocardiogram showed 23 mm Melchor Jian 3 Ultra Resilia bioprosthetic TAVR appears well seated with normal function. Mild paravalvular leak present at 1 o'clock in TTE SAX BASE. Mild concentric hypertrophy. LVEF is 70-75%. Continue GDMT ( metoprolol tartrate 25 mg OD, Entresto 49/51mg OD , spironolactone 25 mg OD, Jardiance 10 mg OD ) Continue Plavix 75 mg p.o. Atrial fib Status post Watchman procedure Telemetry showed paced rhythm Continue Plavix 75 mg p.o. Hypertension Continue home medication clonidine 0.1 mg Hyperlipidemia Continue home medication atorvastatin 80 mg Diabetes mellitus type 2 Continue home medication amitriptyline 50 mg p.o. once daily Normocytic normochromic anemia H&H are stable Continue ferrous sulfate 325 mg p.o. daily Code status: DNR DVT prophylaxis : Heparin Nutrition: Heart healthy diet Physical therapy: ordered Line/tube: PIV Analgesia/sedation: Morphine p.r.n. Disposition: Continue telemetry monitoring. Resident attestation The above note has been reviewed and supervised by a senior resident PGY3 Patient was seen, examined and discussed with the attending physician Los Joseph MD Internal Medicine Resident, PGY 1 Date of Service: Sep 03, 2025 Billing Provider: DELVIN KLEIN MD Common Visit Codes: [id number] INP/OBS CARE(HIGH) THEE JOSEPH, RES Sep 03, 2025 17:12 DELVIN KLEIN MD Sep 04, 2025 13:14
--- NOTE | 2025-09-03 18:50 | CARDIOLOGY REPORT ---
APPROVED REPORT EXAM: Limited 2D, Doppler, and color-flow Echocardiogram. Patient Location: 302 Blood Pressure: 159/61 mmHg Heart Rate: 61 bpm Indications Congestive Heart Failure Dizziness ProBNP: 1504 S/P 23 mm Melchor Jian 3 Ultra RESILIA Bioprosthetic TAVR (07/23/25) AGRICULTURAL RESEARCH TECHNICIAN: Yennifer Kelly MD Previous ECHO: 08/10/25, CVC, EF: 65-70; GRAD: ; PKV: 2.1; m RVE; m- mod TR; tr pericardial eff 2D Dimensions LA Diam 4.6 cm IVSd 1.4 (0.7-1.1cm) LVDd 4.3 cm PWd 1.3 (0.7-1.1cm) IVSs 1.9 (0.8-1.2cm) LVDs 2.4 (2.5-4.0cm) PWs 1.4 (0.8-1.2cm) LVOT Diameter 2.30 (1.8-2.4cm) LVEF(%) 74.6 (>50%) Ao Asc Diam. 3.19 cm IVC 17.20 mm FS (%) 43.2 % SV 60.4 ml CO 3.6 L/min M-Mode Dimensions Left Atrium(MM) 4.98 (2.5-4.0cm) Aortic Root 2.68 (2.2-3.7cm) Aortic Valve AoV Peak Sylvain. 259.3 cm/s AoV VTI 56.3 cm AO Peak GR. 26.9 mmHg AO Mean GR. 14 mmHg LVOT VTI 34.59 cm LVOT Peak Sylvain. 120.1 cm/s DEBBI(VTI)/BSA 2.56 cm2/m2 DEBBI (VTI) 2.56 cm2 AV DI 0.61 % Mitral Valve MV E Velocity 121.4 cm/s MV Peak Gr. 6 mmHg MV DECEL TIME 212 ms MV A Velocity 74.9 cm/s MV PHT 68 ms E/A Ratio 1.6 MVA (PHT) 3.24 cm2 MV VMax 127.3 cm/s Tricuspid Valve TR P. Velocity 319 cm/s RAP ESTIMATE 10 mmHg TR Peak Gr. 41 mmHg RVSP 51 mmHg LEFT VENTRICLE Normal LV size and function. Mild concentric hypertrophy. LVEF is 70-75%. RIGHT VENTRICLE Right ventricle is grossly normal in size and function. Elevated right heart pressures with an RVSP of 51 mmHg. ATRIA Left atrium is moderately dilated. Pacemaker lead is present in the right heart. AORTIC VALVE 23 mm Melchor Jian 3 Ultra Resilia bioprosthetic TAVR appears well seated with normal function. Mild paravalvular leak present at 1 o'clock in TTE SAX BASE. DEBBI is measured at 2.56 cmsq. Peak / mean gradients of 27 / 14 mmHG. Peak velocity is measured at 2.59 m/sec. MITRAL VALVE Moderate mitral annular calcification without stenosis. Trace regurgitation. TRICUSPID VALVE Tricuspid valve is grossly normal in structure with mild regurgitation. PULMONIC VALVE The pulmonary valve is normal in structure without insufficiency. GREAT VESSELS The aortic root is normal in size. The ascending aorta is normal in size. The IVC is normal in size and collapses >50% with inspiration. PERICARDIUM Normal pericardium. No effusion. Other Information Study Quality: Adequate Conclusion Normal LV size and function. Mild concentric hypertrophy. LVEF is 70-75%. Right ventricle is grossly normal in size and function. Elevated right heart pressures with an RVSP of 51 mmHg. Left atrium is moderately dilated. Pacemaker lead is present in the right heart. 23 mm Melchor Jian 3 Ultra Resilia bioprosthetic TAVR appears well seated with normal function. Mild paravalvular leak present at 1 o'clock in TTE SAX BASE. DEBBI is measured at 2.56 cmsq. Peak / mean gradients of 27 / 14 mmHG. Peak velocity is measured at 2.59 m/sec. Moderate mitral annular calcification without stenosis. Trace regurgitation. Tricuspid valve is grossly normal in structure with mild regurgitation. Normal pericardium. No effusion.
[2025-09-03] MEDS: pantoprazole 40mg Tablet.DR PO SCH (21:28)
[2025-09-04] VITALS (8 sets, daily range): BP systolic 118–190; BP diastolic 38–78; PULSE 60–73; RESP 12–21; TEMP 97–98.6; O2SAT 93–97
[2025-09-04] MEDS: hydrALAZINE 20mg/ml inj. IV ONE (00:27)
[2025-09-04] MEDS: sacubitril/valsartan 49mg-51mg tablet PO SCH (06:06)
[2025-09-04 06:58] LABS: MEAN PLATELET VOLUME 9.9 FL (7.4-10.4); RED CELL DISTRIBUTION WIDTH 17.8 % (11.5-14.5)
[2025-09-04 07:17] LABS: CREATININE 0.70 MG/DL (0.40-0.90); TOTAL CARBON DIOXIDE 29.4 MMOL/L (24-32); eCRCL 61 ML/MIN; eGFR 81 ML/MIN
[2025-09-04] MEDS: EMPAGLIFLOZIN 10 MG TABLET PO SCH (08:24)
--- NOTE | 2025-09-04 11:08 | VASCULAR REPORT ---
Indication: Dizziness Technique: Real-time ultrasound images of the neck vessels with estrada-scale, color and wave Doppler were obtained. Comparison: None Findings: The following peak systolic velocities were recorded in cm/sec: Right internal carotid: 72 Right common carotid: 92 Right external carotid: 88 Right internal/common carotid ratio: 0.8 Left internal carotid: 110 Left common carotid: 69 Left external carotid: 127 Left internal/common carotid ratio: 1.6 Right vertebral artery: Patent with normal antegrade direction of flow. Left vertebral artery: Patent with normal antegrade direction of flow. Incidental note of large right thyroid nodule measuring 4.2 x 3.1 cm. Impression: No hemodynamically significant stenosis by velocity criteria. Large right thyroid nodule measuring 4.2 cm. Recommend dedicated thyroid ultrasound for further characterization.
--- NOTE | 2025-09-04 13:57 | PROGRESS NOTE- Residence ---
Progress Note - Resident Providers to CC Resident Creating Document: THEE JOSEPH, RES ~ Head-Non Protocol Head Indications Met/Not Met: F/C Indications Not Met Antibiotic Timeout Antibiotic Ordered?: No Subjective Patient was seen at bedside. Patient still continues to have lightheadness, spinning of head, after physical therapy. No acute overnight symptoms noted. Objective Vital Signs Date Time Temp Pulse Resp B/P (MAP) Pulse Ox O2 Delivery O2 Flow Rate FiO2 09/04/25 11:00 97.2 70 17 138/38 (71) 96 Room Air 09/03/25 20:00 0.0 Result Diagram: 09/04/2533 09/04/25632 Elderly female, moderately obese, Awake , alert and oriented to time,place, person,not in distress HEENT: Atraumatic, normocephalic, PERRLA, EOMI, anicteric sclera ; pink conjunctiva, moist mucos membranes Neck: Trachea midline. Supple, normal range of motion, no JVD, no lymphadenopathy Chest and Respiratory: Equal breath sounds bilaterally, no tachypnea, wheezing, ronchi,rubs .Chest wall is symmetric and without deformity. Cardiac: S1, S2 heard, paced rhythm, ejection systolic murmur appreciated in the aortic area, Pacemaker in place Abdomen: Soft, No tenderness, No guarding or rigidity, Lugo's sign negative. normal bowel sounds x4 quadrant, no hepatosplenomegaly MSK: Range of motion of all extremities are normal. There is no joint pain or joint swelling or joint erythema. There is no muscle pain or tenderness or swelling. Extremities: warm, well-perfused, No cyanosis, clubbing, 2+ pulses felt, left leg deformed knee due to osteoarthitis , patient has scar on her right knee for knee arthroplasty Neurological: Speech is clear, alert, and oriented x 4. No sensory or motor deficits. Cranial nerves II-XII intact. 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 Plan Plan Near Syncope epsiode possible 2/2 Bilateral BPPV/Autonomic Imbalance/Age related deconditioning Patient had recurrent falls but not associated with head hit, loss of conscious, or confusion, spinning sensation CT head was normal Ordered echocardiogram Continue detective and intelligence analyst Dr. Avel Kelly, the casing runner consulted ordered Orthostatic vitals Troponins are negative EKG showed paced rhythm BNP is 1500 Glucose is 96 Follow with TSH Held Entrensto Pcaemaker Pacemaker intterogation. 09/03/25: No orthostatic vitals Telemetry showed paced rhythm H&H are stable Urinalysis is normal Glucose is 176 on glucometer TSH Meclizine 12.5 mg p.o. b.i.d. Modified Brady's maneuver Ordered physical therapy 09/04/25: orthostatic vitals ordered Telemetry showed V paced rhythm Glucose is 141 on glucometer No stenosis but Large right thyroid nodule measuring 4.2 cm. on carotid Ultrasound. Follow up with thyroid ultrasound and advised the patient for thyroid biopsy outpatient. TSH is low 0.19, follow up with free T4 level Chronic HF improved ejection fraction status post AICD, HFpEF 70-75 % on 09/04/25 TAVR Echocardiogram showed TAVR valve well seated and functioning normally Mild concentric hypertrophy. LVEF is 70-75%. Continue GDMT ( metoprolol tartrate 25 mg OD, Entresto 49/51mg OD , spironolactone 25 mg OD, Jardiance 10 mg OD ) Continue Plavix 75 mg p.o. Atrial fib Status post Watchman procedure Telemetry showed paced rhythm Continue Plavix 75 mg p.o. Hypertension Continue home medication clonidine 0.1 mg Hyperlipidemia Continue home medication atorvastatin 80 mg Diabetes mellitus type 2 Continue home medication amitriptyline 50 mg p.o. once daily Normocytic normochromic anemia H&H are stable Continue ferrous sulfate 325 mg p.o. daily Code status: DNR DVT prophylaxis : Heparin Nutrition: Heart healthy diet Physical therapy: Post acute care Line/tube: PIV Analgesia/sedation: Morphine p.r.n. Disposition: follow up with thyroid ultrasound, TSH and T4 levels and advised outpatient thyroid biopsy. Discussed with welfare case worker, SNF refused placement because of some insurance issues. Patient son is coming to pick her, discuss with physical therapy tomorrow. Resident attestation The above note has been reviewed and supervised by a senior resident PGY3 Patient was seen, examined and discussed with the attending physician Los Joseph MD Internal Medicine Resident, PGY 1 PATIENT IS SEEN AND EXAMINED WITH RESIDENT AT BEDSIDE Date of Service: Sep 04, 2025 Billing Provider: DELVIN KLEIN MD Common Visit Codes: [id number] INP/OBS CARE(HIGH) THEE JOSEPH, RES Sep 04, 2025 13:57 DELVIN KLEIN MD Sep 06, 2025 14:12
[2025-09-05] VITALS (8 sets, daily range): BP systolic 125–187; BP diastolic 41–82; PULSE 30–75; RESP 15–19; TEMP 96.9–98.1; O2SAT 93–96
[2025-09-05 07:45] LABS: MEAN PLATELET VOLUME 10.0 FL (7.4-10.4); RED CELL DISTRIBUTION WIDTH 17.9 % (11.5-14.5)
[2025-09-05 08:03] LABS: CREATININE 0.78 MG/DL (0.40-0.90); TOTAL CARBON DIOXIDE 28.2 MMOL/L (24-32); eCRCL 55 ML/MIN; eGFR 71 ML/MIN
--- NOTE | 2025-09-05 09:51 | RADIOLOGY REPORT ---
THYROID ULTRASOUND CLINICAL INFORMATION: thyroid nodule on carotid ultarsound, confirm with thyroid ultasound Prior thyroid ultrasound: CT CT HEAD on DOS: 09/02/25, ULTRASOUND HEAD NECK on DOS: 05/21/23 Technique: Ultrasound examination of the thyroid and adjacent soft tissues was performed. FINDINGS: THYROID GLAND: Size right lobe: 5.5 x 3.2 x 4.4 cm Size left lobe: 4.0 x 1.7 x 1.4 cm Size isthmus: 2 mm anterior-posterior Texture: homogeneous NODULES: Estimated total number of nodules >/= 1cm: 1 Number of spongiform nodules >/= 2cm not described below (TR1): 0 Number of mixed cystic and solid nodules >/= 1.5cm not described below (TR2): 0 Nodule 1: Size: 3.5 x 3.2 x 2.1 cm Location: right mid thyroid.. Composition: solid/almost completely solid (2) Echogenicity: hypoechoic (2) Shape: not [id number] (0) Margins: smooth (0) Echogenic foci: none (0) ACR TI-RADS total points: 4 ACR TI-RADS risk category: TR4 Nodule 2: Size: 0.7 x 0.6 x 0.6 cm Location: right mid thyroid.. Composition: solid/almost completely solid (2) Echogenicity: hypoechoic (2) Shape: not [id number] (0) Margins: smooth (0) Echogenic foci: none (0) ACR TI-RADS total points: 4 ACR TI-RADS risk category: TR4 IMPRESSION: Nodule 1: ACR TI-RADS TR4. Recommendation: Ultrasound-guided fine needle aspiration Nodule 2: ACR TI-RADS TR4. Recommendation: No dedicated follow-up recommended due to small size ACR TI-RADS recommendations TR5 (>/= 7 points) - FNA if >/= 1cm, follow-up if5-0.9 cm every year for 5 years TR4 (4-6 points) - FNA if >/= 1.5cm, follow-up if 1-1.4 cm in 1, 2, 3 and 5 years TR3 (3 points) - FNA if >/= 2.5cm, follow-up if 1.5-2.4 cm in 1, 3 and 5 years TR2 (2 points) and TR1 (0 points) - No FNA or follow-up * ACR TI-RADS recommends that no more than two nodules with the highest ACR TI- RADS total point should be biopsied and no more than four nodules should be followed. Source: ACR Thyroid Imaging, Reporting and Data System (TI-RADS): White Paper of the ACR TI-RADS Committee. Inderjit et al., J Am Leeanna Radiol 2017; 14:587-
[2025-09-05] MEDS: magnesium hydroxide 30ml (MOM) UD suspension PO PRN (09:53)
--- NOTE | 2025-09-05 16:14 | PROGRESS NOTE- Residence ---
Progress Note - Resident Providers to CC Resident Creating Document: GABE BARBOZA, EMILY ~ Central Line/PICC still needed: N\A Head-Non Protocol Head Indications Met/Not Met: F/C Indications Not Met Antibiotic Timeout Antibiotic Ordered?: No Subjective Patient was seen at bedside. Patient still continues to have lightheadness, spinning of head, after physical therapy. No acute overnight symptoms noted. Tested positive for orthostatic. We will discontinue her interest to for now. Follow up outpatient with captain fishing vessel to re-evaluate the need to restart the medication. The patient on the smallest dose of midodrine, order Sage hose. We will re- evaluate the patient after bolus fluids. Objective Vital Signs Date Time Temp Pulse Resp B/P (MAP) Pulse Ox O2 Delivery O2 Flow Rate FiO2 09/05/25 08:00 16 93 Room Air 0.0 09/05/25 08:00 68 150/70 (96) 69 159/82 (107) 72 133/62 (85) 09/05/25 02:00 97.2 Result Diagram: 09/05/25 0651 09/05/25 0651 General: Morbidly obese, Well alert, well oriented, not confused, not agitated, not in acute distress, well cooperated during the physical. HEENT: Conjunctive are pink, sclerae clear, no icterus, pupil is equal in both sides, reactive to light, no ear discharge, no pharyngeal erythema or an edema. Neck: Supple, no JVD, no lymphadenopathy and thyromegaly. Chest: Equal air entry on both lungs, no added sounds, no wheeze. Cardiovascular: S1-S2 regular sinus rhythm and, regular rate, no gallops, no rubs, no murmurs Abdomen: No visible peristalsis, Bowel sounds present on auscultation, soft, nontender, no guarding, no rigidity Extremities: No obvious deformities, 1+ pitting edema bilaterally, capillary refill intact, peripheral pulsations are intact on both sides Central Nervous System: No focal neurological deficits, no motor or sensory weakness in all 4 extremities, could move all 4 extremities, 2+ deep tendon reflexes, negative Babinski. Musculoskeletal: No joint swelling, deformities, inflammations, and no scoliosis and back tenderness Skin: Warm and dry. 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 Plan Plan Near Syncope epsiode due to lightheadedness. Most likely medication induced, orthostatic hypotension, Age related deconditioning Patient had recurrent falls but not associated with head hit, loss of conscious, or confusion, spinning sensation -CT head was normal -Echocardiogram shows normal left ventricular function with an ejection fraction of 70-75% Elevated RVSP of 50 Continue site monitor -Dr. Avel Kelly, the captain fishing vessel consulted -Orthostatic was positive Serial Troponins are negative, BNP is 1500 EKG showed paced rhythm Glucose is 96 Held Entrensto Pacemaker checked, working correctly. Plan: 1 L fluid bolus, recheck orthostatic vitals after hydration Ordered Sage hoses and midodrine 2.5 mg p.o. daily PT eval and treat, educated the patient about moving around slowly Chronic HF improved ejection fraction status post AICD, HFpEF 70-75 % on 09/04/25 TAVR Echocardiogram showed TAVR valve well seated and functioning normally Mild concentric hypertrophy. LVEF is 70-75%. Continue GDMT excluding Entresto ( metoprolol tartrate 25 mg OD, spironolactone 25 mg OD, Jardiance 10 mg OD ) Continue Plavix 75 mg p.o. Solitary thyroid nodule TSH 0.19, free T4 normal The patient does not have hypo/hyperthyroidism symptoms TI-RADS score of 4- recommended outpatient biopsy Atrial fib Status post Watchman procedure Telemetry showed paced rhythm Continue Plavix 75 mg p.o. and metoprolol 25 mg OD Hypertension Clonidine 0.1 mg stopped. There does not seem to be at home medication Continuing GDM T Hyperlipidemia Continue home medication atorvastatin 80 mg Diabetes mellitus type 2 Ordered hemoglobin A1c On low-dose insulin protocol Normocytic normochromic anemia H&H are stable Continue ferrous sulfate 325 mg p.o. daily Code status: DNR DVT prophylaxis : Heparin Nutrition: Heart healthy diet Physical therapy: Post acute care Line/tube: PIV Analgesia/sedation: Morphine p.r.n. Disposition: follow up with thyroid ultrasound, TSH and T4 levels and advised outpatient thyroid biopsy. Discussed with case specialist, SNF refused placement because of some insurance issues. Patient son is coming to pick her, discuss with physical therapy tomorrow. Resident attestation The above note has been reviewed and supervised by a senior resident PGY3 Patient was seen, examined and discussed with the attending physician Los Joseph MD Internal Medicine Resident, PGY 1 Date of Service: Sep 05, 2025 Billing Provider: DELVIN KLEIN MD Common Visit Codes: [id number] INP/OBS CARE(HIGH) GABE BARBOZA, RES Sep 05, 2025 16:14 DELVIN KLEIN MD Sep 06, 2025 14:14
[2025-09-05] MEDS: midodrine tablet 2.5 MG TABLET PO SCH (16:51)
[2025-09-05] MEDS: normal saline 1000ml 1,000 ML IVB ONE (17:14)
[2025-09-06] VITALS (8 sets, daily range): BP systolic 144–161; BP diastolic 36–72; PULSE 60–72; RESP 14–20; TEMP 97.1–98.7; O2SAT 93–96
[2025-09-06 06:28] LABS: MEAN PLATELET VOLUME 10.1 FL (7.4-10.4); RED CELL DISTRIBUTION WIDTH 17.5 % (11.5-14.5)
[2025-09-06 06:48] LABS: CREATININE 0.79 MG/DL (0.40-0.90); TOTAL CARBON DIOXIDE 29.1 MMOL/L (24-32); eCRCL 54 ML/MIN; eGFR 70 ML/MIN
--- NOTE | 2025-09-06 13:52 | PROGRESS NOTE- Residence ---
Progress Note - Resident Providers to CC Resident Creating Document: THEE JOSEPH, RES ~ Head-Non Protocol Head Indications Met/Not Met: F/C Indications Not Met Antibiotic Timeout Antibiotic Ordered?: No Subjective Patient was seen and examined at bedside. Patient still continues to have lightheadedness. Negative for orthostatic vitals today. No acute overnight symptoms noted. Objective Vital Signs Date Time Temp Pulse Resp B/P (MAP) Pulse Ox O2 Delivery O2 Flow Rate FiO2 09/06/25 11:00 98.7 62 16 147/54 (85) 94 Room Air 09/06/25 08:00 0.0 Result Diagram: 09/06/25 0542 09/06/25541 Elderly female, moderately obese, Awake , alert and oriented to time,place, person,not in distress HEENT: Atraumatic, normocephalic, PERRLA, EOMI, anicteric sclera ; pink conjunctiva, moist mucos membranes Neck: Trachea midline. Supple, normal range of motion, no JVD, no lymphadenopathy Chest and Respiratory: Equal breath sounds bilaterally, no tachypnea, wheezing, ronchi,rubs .Chest wall is symmetric and without deformity. Cardiac: S1, S2 heard, paced rhythm, ejection systolic murmur appreciated in the aortic area, Pacemaker in place Abdomen: Soft, No tenderness, No guarding or rigidity, Lugo's sign negative. normal bowel sounds x4 quadrant, no hepatosplenomegaly MSK: Range of motion of all extremities are normal. There is no joint pain or joint swelling or joint erythema. There is no muscle pain or tenderness or swelling. Extremities: warm, well-perfused, No cyanosis, clubbing, 2+ pulses felt, left leg deformed knee due to osteoarthitis , patient has scar on her right knee for knee arthroplasty Neurological: Speech is clear, alert, and oriented x 4. No sensory or motor deficits. Cranial nerves II-XII intact. 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 Plan Plan Near Syncope epsiode due to lightheadedness. Most likely medication induced, orthostatic hypotension, Age related deconditioning Patient had recurrent falls but not associated with head hit, loss of conscious, or confusion, spinning sensation -CT head was normal -Echocardiogram shows normal left ventricular function with an ejection fraction of 70-75% Elevated RVSP of 50 Continue supervisor self service store -Dr. Avel Kelly, the crocheter consulted -Orthostatic was positive Serial Troponins are negative, BNP is 1500 EKG showed paced rhythm Glucose is 96 Held Entrensto for now Pacemaker checked, working correctly. Plan: 1 L fluid bolus, recheck orthostatic vitals after hydration Ordered Mary hoses and midodrine 2.5 mg p.o. daily PT eval and treat, educated the patient about moving around slowly 09/06/25: Negative orthostatic vitals Telemetry showed paced rhythm MARY hoses, Abdominal binders ( not available for Pharmacy, Outpatient ) midodrine 2.5 mg p.o. q.8h daily Fludrocortisone 0.1 mg p.o. daily PT eval and treat, educated the patient about moving around slowly Held Entrensto for now. Follow up outpatient with crocheter to re-evaluate the need to restart the medication. Chronic HF improved ejection fraction status post AICD, HFpEF 70-75 % on 09/04/25 TAVR Echocardiogram showed TAVR valve well seated and functioning normally Mild concentric hypertrophy. LVEF is 70-75%. Continue GDMT excluding Entresto ( metoprolol tartrate 25 mg OD, spironolactone 25 mg OD, Jardiance 10 mg OD ) Continue Plavix 75 mg p.o. Held Entrensto for now. Follow up outpatient with crocheter to re-evaluate the need to restart the medication. Solitary thyroid nodule TSH 0.19, free T4 normal The patient does not have hypo/hyperthyroidism symptoms TI-RADS score of 4- recommended outpatient biopsy Atrial fib Status post Watchman procedure Telemetry showed paced rhythm Continue Plavix 75 mg p.o. and metoprolol 25 mg OD Hypertension Clonidine 0.1 mg stopped. There does not seem to be at home medication Continuing GDMT Hyperlipidemia Continue home medication atorvastatin 80 mg Diabetes mellitus type 2 Ordered hemoglobin A1c On low-dose insulin protocol Normocytic normochromic anemia H&H are stable Continue ferrous sulfate 325 mg p.o. daily Code status: DNR DVT prophylaxis : Heparin Nutrition: Heart healthy diet Physical therapy: Post acute care Line/tube: PIV Analgesia/sedation: Morphine p.r.n. Disposition: follow up with thyroid ultrasound, TSH and T4 levels and advised outpatient thyroid biopsy. Discussed with pillowcase folder, SNF refused placement because of some insurance issues. Patient son is coming to pick her, discuss with physical therapy tomorrow. Discussed with pillowcase folder again tomorrow. Resident attestation The above note has been reviewed and supervised by a senior resident PGY3 Patient was seen, examined and discussed with the attending physician Los Joseph MD Internal Medicine Resident, PGY 1 Date of Service: Sep 06, 2025 Billing Provider: DELVIN KLEIN MD Common Visit Codes: [id number] INP/OBS CARE(MOD) THEE JOSEPH MILLER, RES Sep 06, 2025 13:52 DELVIN KLEIN MD Sep 06, 2025 14:15
[2025-09-07] VITALS (8 sets, daily range): BP systolic 120–172; BP diastolic 37–76; PULSE 57–95; RESP 13–22; TEMP 97.2–98.9; O2SAT 93–96
[2025-09-07 06:29] LABS: MEAN PLATELET VOLUME 10.5 FL (7.4-10.4)
[2025-09-07 06:33] LABS: RED CELL DISTRIBUTION WIDTH 17.6 % (11.5-14.5)
[2025-09-07 06:42] LABS: CREATININE 0.72 MG/DL (0.40-0.90); TOTAL CARBON DIOXIDE 27.3 MMOL/L (24-32); eCRCL 59 ML/MIN; eGFR 78 ML/MIN
[2025-09-07] MEDS: normal saline 500ml IV soln 500 ML IV ONE (13:33)
--- NOTE | 2025-09-07 16:58 | PROGRESS NOTE- Residence ---
Progress Note - Resident Providers to CC Resident Creating Document: GEMA KELLY RES ~ Antibiotic Timeout Antibiotic Ordered?: Yes Subjective Patient seen and examined at bedside. This morning on rounds she states that she was feeling better and her dizziness was no more. But later in the afternoon RN informed me that she started getting dizzy again and her blood pressure dropped when she tried to stand up. On revisiting the patient she says that she does complain of dizziness and her son is concerned as she lives alone at home. She is agreeable to go for a rehab but states that she has been having some issues with insurance. I talked to pillowcase folder Andressa, she is aware and working to see if he will be able to place her the SNF for her workup has been negative so far , pacemaker check uneventful. Objective Vital Signs Date Time Temp Pulse Resp B/P (MAP) Pulse Ox O2 Delivery O2 Flow Rate FiO2 09/07/25 15:00 98.3 70 13 142/57 (85) 95 Room Air 09/06/25 08:00 0.0 Result Diagram: 09/07/2544 09/07/25 0544 General: Obese female, Awake and Alert, no acute distress. HEENT: Conjunctiva pink, Sclera clear, Mucus Membranes moist. Neck: Supple without masses and tenderness. Resp: Unlabored. Equal breath sounds bilaterally. Heart: Regular rhythm, normal S1 and S2, no rub, murmur or gallop. Abdomen: Soft and non tender no organomegaly. Normal bowel sounds x4 quadrant normoactive. No guarding or rigidity. Extremities: OA left knee, no cyanosis clubbing or edema. Musculoskeletal: Normal posture and gait. No joint swelling, deformity or tenderness, full range of motion and strength 5 x 5 in all extremities. DESK ASSISTANT: No gross motor or sensory abnormalities. Skin: Warm and Dry. Coagulation Studies Laboratory Tests Test 09/02/25 14:55 Prothrombin Time 10.9 SECONDS (9.0-12.0) INR International Normalized Ratio 1.1 INR Activated Partial Thromboplast Time 28 SECONDS (22-32) Coagulation Comments Assessment Assessment 80-year-old female history of heart failure with reduced EF status post AICD, AFib status post Watchman and pacemaker, aortic stenosis status post TAVR, history of CVA with residual weakness using a walker at home presented to the ED with chief complaints of dizziness and lightheadedness. Plan Plan Presyncope, dizziness and lightheadedness Acute CVA ruled out Could be secondary to be age related autonomic dysfunction Patient states that she has been getting dizzy, her orthostatics were positive has been adequately fluid resuscitated Workup so far has been negative with CT head, echo carotid ultrasound. Echo: EF is 70-75% RVSP 51, normal LV size and function. Normal pericardium, No effusion She is started on meclizine 25 p.o. t.i.d. since yesterday DC midodrine 2.5 t.i.d., can continue fludrocortisone 0.1 daily Cardiology has evaluated her, no interventions at this time PT eval, has been triaged today Sage cary and abdominal binder outpatient Follow up with 8 am cortisol level Heart failure with improved EF not in exacerbation s/p AICD EF 70-75% RVSP 51 as per echo on 09/04/2025 GDM T with metoprolol tartrate 25 p.o. daily, Jardiance 10 p.o. daily, spironolactone 12.5 p.o. daily, Entresto held as the patient has been having planning of dizziness and her orthostatics were positive Incidental finding solitary thyroid nodule 4.2 cm on the right side She will require outpatient biopsy for further evaluation Aortic stenosis status post TAVR AFib status post Watchman and pacemaker Hypertension Hyperlipidemia Chronic anemia Diabetes type 2, A1c 6.7 Code Status: DNR DVT prophylaxis: Heparin Analgesia/sedation: None Line/tube: PIV GI prophylaxis: None Nutrition: Heart healthy Prognosis: Guarded Disposition: Continue medical management. PT needs to evaluate her. Talked to pillowcase folder as discharge to a SNF would be beneficial to her, [facility]. Cm aware working to see if we can place her at the SNF. Gema Kelly MD. IM Resident PGY-3 Date of Service: Sep 07, 2025 Billing Provider: DELVIN KLEIN MD Common Visit Codes: [id number] INP/OBS CARE(HIGH) GEMA KELLY, RES Sep 07, 2025 16:58 DELVIN KLEIN MD Sep 09, 2025 14:48
[2025-09-08] VITALS (10 sets, daily range): BP systolic 120–178; BP diastolic 37–94; PULSE 60–95; RESP 12–19; TEMP 96.9–98.1; O2SAT 93–95
--- NOTE | 2025-09-08 15:38 | PROGRESS NOTE- Residence ---
Progress Note - Resident Providers to CC Resident Creating Document: JEFF KAMINSKI RES ~ Antibiotic Timeout Antibiotic Ordered?: No Subjective Patient was seen and examined at the bedside today. Patient complains of mild dizziness. No acute overnight events recorded. We discussed with the patient the different exercises that can be performed for reduction of vertigo. surveillance manager is working on her placement. Objective Vital Signs Date Time Temp Pulse Resp B/P (MAP) Pulse Ox O2 Delivery O2 Flow Rate FiO2 09/08/25 11:00 97.5 75 18 156/55 (88) 95 Room Air 09/06/25 08:00 0.0 Result Diagram: 09/07/2544 09/07/25543 General: Obese female, Awake and Alert, no acute distress. HEENT: Conjunctiva pink, Sclera clear, Mucus Membranes moist. Neck: Supple without masses and tenderness. Resp: Unlabored. Equal breath sounds bilaterally. Heart: Regular rhythm, normal S1 and S2, no rub, murmur or gallop. Abdomen: Soft and non tender no organomegaly. Normal bowel sounds x4 quadrant normoactive. No guarding or rigidity. Extremities: OA left knee, no cyanosis clubbing or edema. Musculoskeletal: Normal posture and gait. No joint swelling, deformity or tenderness, full range of motion and strength 5 x 5 in all extremities. SOFTWARE TOOLS ENGINEER: No gross motor or sensory abnormalities. Skin: Warm and Dry. Coagulation Studies Laboratory Tests Test 09/02/25 14:55 Prothrombin Time 10.9 SECONDS (9.0-12.0) INR International Normalized Ratio 1.1 INR Activated Partial Thromboplast Time 28 SECONDS (22-32) Coagulation Comments Assessment Assessment This is a 80-year-old female history of heart failure with reduced EF status post AICD, AFib status post Watchman and pacemaker, aortic stenosis status post TAVR, history of CVA with residual weakness using a walker at home presented to the ED with chief complaints of dizziness and lightheadedness. Plan Plan Presyncope, dizziness and lightheadedness Acute CVA ruled out Could be secondary to be age related autonomic dysfunction Patient states that she has been getting dizzy, her orthostatics were positive has been adequately fluid resuscitated Workup so far has been negative with CT head, echo carotid ultrasound. Echo: EF is 70-75% RVSP 51, normal LV size and function. Normal pericardium, No effusion She is started on meclizine 25 p.o. t.i.d. since yesterday Continue fludrocortisone 0.1 daily Cardiology has evaluated her, no interventions at this time PT evaluated the patient and advised post acute care. [facility] and abdominal binder outpatient Follow up with 8 am cortisol level Heart failure with improved EF not in exacerbation s/p AICD EF 70-75% RVSP 51 as per echo on 09/04/2025 GDM T with metoprolol tartrate 25 p.o. daily, Jardiance 10 p.o. daily, spironolactone 12.5 p.o. daily, Entresto held as the patient has been having planning of dizziness and her orthostatics were positive Incidental finding solitary thyroid nodule 4.2 cm on the right side She will require outpatient biopsy for further evaluation Aortic stenosis status post TAVR AFib status post Watchman and pacemaker Hypertension Hyperlipidemia Chronic anemia Diabetes type 2, A1c 6.7 Code Status: DNR DVT prophylaxis: Heparin Analgesia/sedation: None Line/tube: PIV GI prophylaxis: None Nutrition: Heart healthy Prognosis: Guarded Disposition: Continue medical management. Talked to case preparer and liner as discharge to SNF would be beneficial to her, monica wood and Sam have denied. Jeff Kaminski PGY-1 Date of Service: Sep 08, 2025 Billing Provider: DELVIN KLEIN MD Common Visit Codes: [id number] INP/OBS CARE(MOD) JEFF KAMINSKI, RES Sep 08, 2025 15:38 DELVIN KLEIN MD Sep 09, 2025 15:44
[2025-09-08 19:58] LABS: MEAN PLATELET VOLUME 10.3 FL (7.4-10.4); RED CELL DISTRIBUTION WIDTH 17.4 % (11.5-14.5)
[2025-09-08 20:14] LABS: CREATININE 0.78 MG/DL (0.40-0.90); TOTAL CARBON DIOXIDE 28.7 MMOL/L (24-32); eCRCL 55 ML/MIN; eGFR 71 ML/MIN
[2025-09-09 02:00] VITALS: BP 167/39; PULSE 60; RESP 18; TEMP 97.7; O2SAT 94
[2025-09-09 08:00] VITALS: RESP 18; O2SAT 94
[2025-09-09 08:38] VITALS: BP_SYST 170; PULSE 64
--- NOTE | 2025-09-09 16:16 | DISCHARGE SUMMARY-Residence ---
Discharge Summary Providers to CC Resident Creating Document: GERALDDINHDeeJEFF, RES ~ Discharge Summary Admission Diagnosis: dizziness Hospital Course DATE OF ADMISSION: 09/02/25 DATE OF DISCHARGE:09/09/25 Imaging- Chest x-ray- Increased interstital prominence. This may represent pulmonary vascular congestion and/or viral pneumonia. Clinical correlation advised. Head CT- NO ACUTE INTRACRANIAL ABNORMALITY SEEN Echocardiogram-Normal LV size and function. Mild concentric hypertrophy. LVEF is 70-75%. Right ventricle is grossly normal in size and function. Elevated right heart pressures with an RVSP of 51 mmHg. Left atrium is moderately dilated. Pacemaker lead is present in the right heart. 23 mm Melchor Jian 3 Ultra Resilia bioprosthetic TAVR appears well seated with normal function. Mild paravalvular leak present at 1 o'clock in TTE SAX BASE. DEBBI is measured at 2.56 cmsq. Peak / mean gradients of 27 / 14 mmHG. Peak velocity is measured at 2.59 m/sec. Moderate mitral annular calcification without stenosis. Trace regurgitation. Tricuspid valve is grossly normal in structure with mild regurgitation. Normal pericardium. No effusion. Carotid artery ultrasound- No hemodynamically significant stenosis by velocity criteria. Large right thyroid nodule measuring 4.2 cm. Recommend dedicated thyroid ultrasound for further characterization. Head neck ultrasound Nodule 1: ACR TI-RADS TR4. Recommendation: Ultrasound-guided fine needle aspiration Nodule 2: ACR TI-RADS TR4. Recommendation: No dedicated follow-up recommended due to small size Discharge Diagnosis\Comment: Presyncope, dizziness and lightheadedness Acute CVA ruled out Heart failure with improved EF not in exacerbation s/p AICD Incidental finding solitary thyroid nodule Operations\Procedures: None Consultants: Cardiology Complications: None Condition on DC: Stable New Medications: Fludrocortisone Acetate* (Florinef*) 0.1 Mg Tablet 0.1 MG PO DAILY@0830, #30 TAB Meclizine HCl (Meclizine HCl) 12.5 Mg Tablet 25 MG PO TID, #120 TAB Continued Medications: Acetaminophen (Acetaminophen) 325 Mg Tablet 2 TAB PO Q6H PRN for pain or fever Amitriptyline Hcl* (Elavil*) 50 Mg Tablet 1 TAB PO HS, TAB Ascorbic Acid (Ascorbic Acid) 500 Mg Tablet 1 TAB PO BID Atorvastatin Calcium* (Lipitor*) 80 Mg Tablet 1 TAB PO DAILY Clopidogrel Bisulfate (Plavix) 75 Mg Tablet 1 TAB PO DAILY Doxazosin Mesylate (Doxazosin Mesylate) 2 Mg Tablet 1 TAB PO DAILY, TAB 0 Refills Empagliflozin (Jardiance) 10 Mg Tablet 1 TAB PO DAILY Ferrous Sulfate* (Ferrous Sulfate*) 325 Mg Tablet 1 TAB PO DAILY, TAB Fluticasone/Umeclidin/Vilanter (Trelegy Ellipta 100-62.5-25) 100-62.5 Blst.w.dev 1 PUFFS INH DAILY Fluticasone/Vilanterol (Breo Ellipta 100-25 Mcg INH) 100 Mcg-25 Mcg/Dose Aer.pow.ba 1 PUFFS INH DAILY for 30 Days, #1 EA 0 Refills Insulin Glargine,Hum.rec.anlog (Lantus) 100 Unit/Ml Vial 15 UNITS SQ HS Insulin Lispro (Humalog) 100 Unit/Ml Cartridge 0 SQ TID for DM2, UNIT PER SS= 81-150 = 0 UNITS 151-200 = 2 UNITS 201-250 = 3 UNITS 251-300 = 4 UNITS 301-350 = 5 UNITS 35--400 = 6 UNITS > 400 = CALL Metoprolol Tartrate* (Metoprolol Tartrate*) 50 Mg Tablet 25 MG PO DAILY HOLD FOR SBP < 110 OR HR < 60 Multivitamin (Multi Vitamin Daily) 1 Each Tablet 1 TAB PO DAILY, TAB 0 Refills Pantoprazole Sodium (PROTONIX tablet) 40 Mg Tablet.dr 1 TAB PO BID for 30 Days, #30 TAB Semaglutide (Ozempic) 0.25 Mg/0.368 Ml Pen.injctr 0.25 MG SQ Q7D EVERY SUNDAY Spironolactone (Aldactone) 25 Mg Tablet 0.5 TAB PO DAILY Discontinued Medications: Sacubitril/Valsartan (Entresto 49 mg-51 mg Tablet) 49 Mg-51 Mg Tablet 1 TAB PO DAILY HOLD FOR SBP < 110 Discharge Summary: She is a 80 year-old female with pmh of orthostasis,CHFrEF 45%,- status post AICD,Chronic CVA, hypertension, hyperlipidemia, diabetes, previous stroke due to atrial fibrillation presented to the ED via EMS after sustaining a near syncopal episode with a fall at her home. Patient reports that she stood up to go to the door as she approached the door she was going to lower herself into a chair that was next to the door because she felt dizzy and fell forward hitting her head on the door. Patient denies any loss of consciousness, she was able to call 911 and came to the ER. Patient denied any confusion, spinning of the room ,palpitations ,chest pain or shortness of breath. Patient has multiple similar episodes over the last several months. Patient reports that she was recently discharged from an extended care facility after having a TAVR procedure performed by Dr. Kelly. Course during the hospital stay- Patient was evaluated for her dizziness. Her electrolytes were normal, glucose was normal, H and H was stable, urine analysis was normal. Telemetry showed paced rhythm. We put the patient on meclizine 12.5 mg p.o. b.i.d. for her heart failure with reduced ejection fraction we continued GDM T, Plavix. Her hypertension was treated with clonidine and we continued atorvastatin for her hyperlipidemia. Patient was continued on ferrous sulfate 325 mg p.o. daily for her normocytic normochromic anemia. Cardiology was consulted and recommended no interventions. Patient was advised mary hoses and abdominal binder outpatient. Most likely her dizziness was due to positive orthostatics as they were positive. Patient was treated with fluids. Finally patient condition improved during her hospital stay. Her entire workup for syncope was negative. Patient's condition was stable at the time of discharge. We have started the patient on new medications New Medications: Fludrocortisone Acetate* (Florinef*) 0.1 Mg Tablet Meclizine HCl 12.5 Mg Tablet Continued Medications: Acetaminophen 325 Mg Tablet Amitriptyline Hcl* (Elavil*) 50 Mg Tablet Ascorbic Acid 500 Mg Tablet Atorvastatin Calcium* (Lipitor*) 80 Mg Tablet Clopidogrel Bisulfate (Plavix) 75 Mg Tablet Doxazosin Mesylate 2 Mg Tablet Empagliflozin (Jardiance) 10 Mg Tablet Ferrous Sulfate* 325 Mg Tablet Fluticasone/Umeclidin/Vilanter (Trelegy Ellipta 100-62.5-25) 100-62.5 Blst.w.dev Fluticasone/Vilanterol (Breo Ellipta 100-25 Mcg INH) 100 Mcg-25 Mcg/Dose Aer.pow.ba Insulin Glargine,Hum.rec.anlog (Lantus) 100 Unit/Ml Vial Insulin Lispro (Humalog) 100 Unit/Ml Cartridge Metoprolol Tartrate* 50 Mg Tablet HOLD FOR SBP < 110 OR HR < 60 Multivitamin (Multi Vitamin Daily) 1 Each Tablet Pantoprazole Sodium (PROTONIX tablet) 40 Mg Tablet. Semaglutide (Ozempic) 0.25 Mg/0.368 Ml Pen.injctr EVERY SUNDAY Spironolactone (Aldactone) 25 Mg Tablet Vital Signs Date Time Temp Pulse Resp B/P (MAP) Pulse Ox O2 Delivery O2 Flow Rate FiO2 09/09/25 08:38 64 09/09/25 08:00 18 94 Room Air 09/09/25 02:00 97.7 167/39 (81) 09/08/25 15:00 0.0 Laboratory Tests Test 09/07/25 16:57 09/07/25 20:19 09/08/25 07:15 09/08/25 11:39 Glucometer 215 mg/dl 207 mg/dl 117 mg/dl 200 mg/dl Test 09/08/25 17:33 09/08/25 19:31 09/09/25 12:00 Glucometer 170 mg/dl 182 mg/dl White Blood Count 6.5 X10'3 Red Blood Count 3.68 X10'6 Hemoglobin 11.3 g/dl Hematocrit 33.9 % Mean Corpuscular Volume 92.0 FL Mean Corpuscular Hemoglobin 30.7 PG Mean Corpuscular Hemoglobin Concent 33.3 g/dL Red Cell Distribution Width 17.4 % Platelet Count 143 X10'3 Mean Platelet Volume 10.3 FL Neutrophils (%) (Auto) 79.9 % Lymphocytes (%) (Auto) 8.8 % Monocytes (%) (Auto) 7.5 % Eosinophils (%) (Auto) 3.2 % Basophils (%) (Auto) 0.6 % Neutrophils # (Auto) 5.2 X10'3 Lymphocytes # (Auto) 0.6 X10'3 Monocytes # (Auto) 0.5 X10'3 Eosinophils # (Auto) 0.2 X10'3 Basophils # (Auto) 0.0 X10'3 CBC Comment Sodium Level 140 MMOL/L Potassium Level 4.3 MMOL/L Chloride Level 106 MMOL/L Carbon Dioxide Level 28.7 MMOL/L Anion Gap 5 Blood Urea Nitrogen 18 MG/DL Creatinine 0.78 MG/DL Estimated GFR/1.73 m2 71 ML/MIN BUN/Creatinine Ratio 23.1 Glucose Level 188 MG/DL Calcium Level 8.5 MG/DL Total Bilirubin 0.8 MG/DL Aspartate Amino Transf (AST/SGOT) 28 U/L Alanine Aminotransferase (ALT/SGPT) 26 U/L Alkaline Phosphatase 149 IU/L Total Protein 6.2 G/DL Albumin 3.2 G/DL Globulin 3.0 G/DL Albumin/Globulin Ratio 1.1 Chemistry Comments Physical examination of the patient during the time of discharge- General: Obese female, Awake and Alert, no acute distress. HEENT: Conjunctiva pink, Sclera clear, Mucus Membranes moist. Neck: Supple without masses and tenderness. Resp: Unlabored. Equal breath sounds bilaterally. Heart: Regular rhythm, normal S1 and S2, no rub, murmur or gallop. Abdomen: Soft and non tender no organomegaly. Normal bowel sounds x4 quadrant normoactive. No guarding or rigidity. Extremities: OA left knee, no cyanosis clubbing or edema. Musculoskeletal: Normal posture and gait. No joint swelling, deformity or tenderness, full range of motion and strength 5 x 5 in all extremities. CHIEF COMMUNICATIONS OFFICER: No gross motor or sensory abnormalities. Skin: Warm and Dry. Additional instructions by the doctor during the time discharge- MARY hoses, Abdominal binders to be brought outpatient to help with your blood pressure. continue Fludrocortisone 0.1 mg p.o. daily, Held Entrensto for now due to concerns with your blood pressure. Follow up outpatient with health and wellness coordinator to re-evaluate the need to restart the medication. Your ultrasound of thyroid showed a Solitary thyroid nodule TSH 0.19, free T4 normal. it is recommended to get a thyroid biosy outpatient after discussing woth your PCP. TI-RADS score of 4- recommended outpatient biopsy. Continue meclizine 25 TID. if condition worsens call 911 or go to the nearest ER immediately. *Problems/Diagnosis: (1) Syncope Total Time Spent on D/C: > 30 Minutes Date of Service: Sep 09, 2025 Billing Provider: DELVIN KLEIN MD, PREETHI, RES Sep 09, 2025 16:16
== END 2025-09-09 16:05 | DRG 312 ==
LOC: ER 14:28 → ED HOLD 18:09 → PCU 3S 21:40
PROVIDERS: ADMIT Internal Medicine; ATTEND Internal Medicine
DX: I95.1 Orthostatic hypotension (principal); I50.22 Chronic systolic (congestive) heart failure; G90.89 Other disorders of autonomic nervous system; E11.9 Type 2 diabetes mellitus without complications; I48.91 Unspecified atrial fibrillation; F41.9 Anxiety disorder, unspecified; J44.9 Chronic obstructive pulmonary disease, unspecified; Z66 Do not resuscitate; I11.0 Hypertensive heart disease with heart failure; E78.5 Hyperlipidemia, unspecified; H81.13 Benign paroxysmal vertigo, bilateral; Z88.6 Allergy status to analgesic agent; Z88.2 Allergy status to sulfonamides; Z88.8 Allergy status to other drugs, medicaments and biological substances; Z79.01 Long term (current) use of anticoagulants; Z91.018 Allergy to other foods; Z79.899 Other long term (current) drug therapy; Z79.4 Long term (current) use of insulin; Z86.73 Personal history of transient ischemic attack (TIA), and cerebral infarction without residual deficits; Z83.3 Family history of diabetes mellitus; Z95.2 Presence of prosthetic heart valve
CPT/HCPCS: 36415; 70450; 71045; 76536; 80048; 80053; 80061; 81001; 82948; 83735; 83880; 84100; 84439; 84443; 84484; 85025; 85610; 85730; 87081; 87088; 93005; 93308; 93880; 97110; 97161; 97530; 99285; A6250; A6258; G0378; J0360; J0696; J1644; J1815; J7030; J7040; J8597